=== PATIENT | female | born 1960 | race Caucasian/White ===

== ENCOUNTER 2017-10-01 18:05 | Inpatient (IN) | payer OTHER ==
[2017-10-01 19:03] LABS: Absolute Lymphocytes (CBC) 1.7 K/uL (0.7-4.9); Absolute Monocytes 0.6 K/uL (0.1-1.3); Absolute Neutrophil 6.8 K/uL (1.8-8.0); Basophils % 0.6 % (0-1.3); Eosinophils % 0.3 % (0-4.4); Hematocrit 33.8 % (36.0-45.0); Lymphocytes % 18.7 % (15.3-44.8); MCH 31.3 pg (27.0-35.0); MCV 92.7 fL (80-100); Monocytes % 6.6 % (3.3-12.3); RBC Red Blood Cell Count 3.65 M/uL (3.86-4.86)
[2017-10-01 19:09] LABS: Protime INR 1.68
[2017-10-01 19:17] LABS: Glucose Level 102 mg/dL (65-120)
[2017-10-01 19:18] LABS: Bicarbonate 33 mEq/L (21-31); Potassium 3.5 mEq/L (3.6-5.0); Sodium Level 134 mEq/L (135-145)
--- NOTE | 2017-10-01 19:21 | RAD REPORT ---
EXAM DESCRIPTION: RAD - Chest Single View - 10/01/2017 7:14 pm CLINICAL HISTORY: Chest pain. COMPARISON: None. FINDINGS: Portable technique limits examination quality. The lungs are emphysematous but grossly clear. The heart is normal in size. No displaced fractures.Se veral dilated small bowel loops are present in the upper abdomen, incompletely assessed. CT imaging i s pending at time of this dictation. IMPRESSION: No acute intrathoracic process suspected.
[2017-10-01] MEDS ORDERED: ONDANSETRON 4 MG/2 ML VIAL ONE (19:23)
[2017-10-01] MEDS ORDERED: NA CHLORIDE 0.9% 1,000 ML ONE ×2 (19:23→21:36)
[2017-10-01] MEDS ORDERED: PANTOPRAZOLE 40 MG INJ ONE (19:23)
[2017-10-01 19:24] LABS: ALT/SGPT 34 IU/L (10-60); AST/SGOT 32 IU/L (10-42); Albumin 3.1 g/dL (3.2-5.5); Alkaline Phosphatase 136 IU/L (42-121); BUN Blood Urea Nitrogen 47 mg/dL (6-20); Bilirubin Direct 0.3 mg/dL (0-0.2); Bilirubin Total 1.4 mg/dL (0.3-1.2); Glomerular Filtration Rate 39 mL/min (=/>90); Magnesium 1.1 mg/dL (1.8-2.5); Protein, Total 5.9 g/dL (6.0-8.3)
[2017-10-01 19:25] LABS: Lipase < 10 U/L (22-51)
[2017-10-01] MEDS ORDERED: NA CHLORIDE 0.9% 500 ML ONE (21:36)
--- NOTE | 2017-10-01 21:54 | RAD REPORT ---
EXAM DESCRIPTION: CT - Abdomen Pelvis Wo Contrast - 10/01/2017 9:33 pm CLINICAL HISTORY: Abdominal pain. Vomiting. COMPARISON: None TECHNIQUE: CT imaging of the abdomen and pelvis was performed without contrast. Solid organ and vasc ular assessment is limited due to lack of IV contrast. All CT scans are performed using dose optimization technique as appropriate and may include automated exposure control or mA/KV adjustment according to patient size. FINDINGS: The lower lung magana are clear. Diffuse severe fatty liver infiltration is noted.The spleen, pancreas, adrenal glands and kidneys are unremarkable for limited noncontrast assessment. Severe dilatation of the small bowel is identified. The colon appears largely decompressed. A left lo wer quadrant ostomy is noted. No free intraperitoneal air seen. No pneumatosis is identified. No port al venous gas is seen. The appendix is not visualized. Aortic atherosclerosis is present. The osseous structures are within normal limits. IMPRESSION: Very severe mechanical small bowel obstruction.
[2017-10-01] MEDS ORDERED: LORazepam 2 MG/ML VIAL ONE (22:50)
[2017-10-01] MEDS ORDERED: Levofloxacin500mg IV 500 MG/100 ML BAG IV ONE (22:51)
[2017-10-01] MEDS ORDERED: METRONIDAZOLE 500mg IVPB 500 MG/100 ML BAG IV ONE (22:51)
[2017-10-01] MEDS ORDERED: MAGNESIUM HYDROXIDE 8% 30 ML PO PRN (23:17)
[2017-10-01] MEDS ORDERED: ACETAMINOPHEN 500 MG TAB PO PRN (23:17)
[2017-10-01] MEDS ORDERED: ONDANSETRON 4 MG/2 ML VIAL IV PRN (23:17)
[2017-10-01] MEDS ORDERED: Magnesium Sulfate 2gm IVPB 2 G/50 ML BAG IV ONE (23:20)
[2017-10-01] MEDS ORDERED: LIDOCAINE VISCOUS 2% SOLN 15 ML UDC ONE (23:42)
[2017-10-01] MEDS ORDERED: METRONIDAZOLE 500mg IVPB 500 MG/100 ML BAG IV SCH (23:45)
--- NOTE | 2017-10-01 23:49 | ER ---
Nurse's Notes [facility] Name: Lyric Barnard Age: 56 yrs Sex: Female : 1960 Arrival Date: 10/01/2017 Time: 18:10 Bed 7 Private MD: Diagnosis: Small Bowel Obstruction Presentation: 10/01 18:14 Presenting complaint: Patient states: I have an ostomy and it is leaking, I am having la1 abd pain and vomiting as well. I have also lost 30 pounds since may. Transition of care: patient was not received from another setting of care. Onset of symptoms was October 01, 2017. Care prior to arrival: None. 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 - Social history:: Smoking status: Patient uses tobacco products, smokes one-half pack cigarettes per day. Screenin:26 Abuse screen: Denies threats or abuse. Nutritional screening: No deficits noted. jl7 Tuberculosis screening: No symptoms or risk factors identified. Fall Risk IV access (20 points). Total Gifford Fall Scale indicates No Risk (0-24 pts). Assessment: 18:26 General: Appears uncomfortable, slender, malnourished, Behavior is calm, cooperative. jl7 Pain: Complains of pain in right lower quadrant and left lower quadrant Pain does not radiate. Pain currently is 8 out of 10 on a pain scale. Pain began a week ago. Neuro: Level of Consciousness is awake, alert, obeys commands, Oriented to person, place, time, situation. Cardiovascular: Patient's skin is warm and dry. Respiratory: Airway is patent Respiratory effort is even, unlabored, Respiratory pattern is regular, symmetrical. GI: Colostomy site Ostomy appliance is intact. Bowel sounds present in right upper quadrant, left upper quadrant and right lower quadrant Abdomen is tender to palpation X 4 quads. Reports nausea, vomiting, since 1 week. : No signs and/or symptoms were reported regarding the genitourinary system. EENT: No signs and/or symptoms were reported regarding the EENT system. Derm: Skin is dry, Skin is dusky, Skin temperature is warm. Musculoskeletal: No signs and/or symptoms reported regarding the musculoskeletal system. 19:20 Reassessment: Patient appears in no apparent distress at this time. Patient and/or aa1 family updated on plan of care and expected duration. Pain level reassessed. Patient is alert, oriented x 3, equal unlabored respirations, skin warm/dry/pink. Awaiting test results. 19:41 General: Appears uncomfortable, slender, Behavior is calm, cooperative. Pain: Complains ea of pain in abdomen Pain does not radiate. Pain currently is 7 out of 10 on a pain scale. Neuro: Level of Consciousness is awake, alert, obeys commands, Oriented to person, place, time, situation. Cardiovascular: Patient's skin is warm and dry. Respiratory: Airway is patent Respiratory effort is even, unlabored, Respiratory pattern is regular, symmetrical. GI: Colostomy site Ostomy appliance is intact. Reports nausea, vomiting. : No signs and/or symptoms were reported regarding the genitourinary system. EENT: No signs and/or symptoms were reported regarding the EENT system. Derm: Skin is dry, Skin is pale, Skin temperature is warm. Musculoskeletal: No signs and/or symptoms reported regarding the musculoskeletal system. 20:25 Reassessment: Patient and/or family updated on plan of care and expected duration. Pain ea level reassessed. Pt alert and oriented x 3, respirations even and unlabored. Chest expansions even and symmetrical. Family at bedside. 21:54 Reassessment: Patient appears in no apparent distress at this time. Patient and/or aa1 family updated on plan of care and expected duration. Pain level reassessed. Patient is alert, oriented x 3, equal unlabored respirations, skin warm/dry/pink. Awaiting CT results. 22:30 Reassessment: Patient and/or family updated on plan of care and expected duration. Pain ea level reassessed. Patient is alert, oriented x 3, equal unlabored respirations, skin warm/dry/pink. 23:30 Reassessment: NG tube insertion attempt unsuccessful, pt unable to tolerate insertion, ea provider notified. 23:50 Reassessment: Patient and/or family updated on plan of care and expected duration. Pain ea level reassessed. Patient is alert, oriented x 3, equal unlabored respirations, skin warm/dry/pink. 10/02 00:45 Reassessment: Patient and/or family updated on plan of care and expected duration. Pain ea level reassessed. Patient is alert, oriented x 3, equal unlabored respirations, skin warm/dry/pink. 01:13 Reassessment: Patient and/or family updated on plan of care and expected duration. Pain ea level reassessed. Patient is alert, oriented x 3, equal unlabored respirations, skin warm/dry/pink. Report given to Fatoumata ELLIOTT on second floor. Vital Signs: 10/01 18:16 BP 95 / 82; Pulse 110; Resp 19; Pulse Ox 98% on R/A; Weight 45.36 kg; Height 5 ft. 6 la1 in. (167.64 cm); 18:26 BP 112 / 86; Pulse 93; Resp 14 S; Temp 98(O); Pulse Ox 98% on R/A; jl7 19:20 BP 110 / 82; Pulse 90; Resp 16; Pulse Ox 98% on R/A; aa1 20:18 BP 118 / 82; Pulse 87; Resp 18; Pulse Ox 98% on R/A; ea 20:41 BP 105 / 74; Pulse 90; Resp 28; Pulse Ox 98% on R/A; aa1 21:55 BP 96 / 71; Pulse 86; Resp 18; Pulse Ox 96% on R/A; aa1 22:30 BP 107 / 74; Pulse 87; Resp 18; Pulse Ox 97% on R/A; ea 23:00 BP 110 / 87; Pulse 93; Resp 16 S; Pulse Ox 97% on R/A; ea 10/02 00:45 BP 101 / 72; Pulse 83; Resp 18; Pulse Ox 99% on R/A; ea 01:22 BP 101 / 74; Pulse 78; Resp 18 S; Temp 97.8(O); Pulse Ox 99% on R/A; Pain 0/10; ea 10/01 18:16 Body Mass Index 16.14 (45.36 kg, 167.64 cm) la1 ED Course: 10/01 18:10 Patient arrived in ED. mr 18:15 Triage completed. la1 18:16 Arm band placed on left wrist. la1 18:18 Maylin Jarrett RN is Primary Nurse. jl7 18:26 Patient has correct armband on for positive identification. Placed in gown. Bed in low jl7 position. Call light in reach. Side rails up X 1. Pulse ox on. NIBP on. Warm blanket given. 18:26 Inserted saline lock: 20 gauge in right forearm, using aseptic technique. Blood jl7 collected. 18:28 Juan Sawyer PA is PHCP. cp 18:28 Donte Pillai MD is Attending Physician. cp 18:30 Initial lab(s) drawn, by wv, sent to lab. jl7 18:45 Inserted saline lock: 20 gauge in left forearm, using aseptic technique. jl7 19:09 Tahir Becerril MD is Attending Physician. cp 19:13 X-ray completed. Portable x-ray completed in exam room. Patient tolerated procedure la2 well. 19:14 XRAY Chest (1 view) In Process Unspecified. EDMS 19:14 Report given to EARL Deleon. jl7 21:33 CT Abd/Pelvis - Without Cont In Process Unspecified. EDMS 23:10 NGT: inserted 18 Fr. via left nare. verified placement of air over stomach, verified ea return of gastric contents, to intermittent suction. Returned gastric contents. Patient tolerated well. 23:47 Sonja Oneal MD is Hospitalizing Provider. cp 10/02 00:49 No provider procedures requiring assistance completed. Patient admitted, IV remains in ea place. 00:53 X-ray completed. Patient tolerated procedure well. la2 Administered Medications: Discontinued: NS 0.9% 1000 ml IV at 100 ml/hr continuous 10/01 19:05 Drug: NS 0.9% 500 ml Route: IV; Rate: bolus; Site: right forearm; jl7 20:08 Follow up: IV Status: Completed infusion aa1 19:06 Drug: ProTONIX 40 mg Route: IVP; Site: right forearm; jl7 20:08 Follow up: Response: No adverse reaction; Pain is decreased aa1 19:08 Drug: Zofran 4 mg Route: IVP; Site: right forearm; jl7 20:08 Follow up: Response: No adverse reaction; Nausea is decreased aa1 19:30 Drug: NS 0.9% 500 ml Route: IV; Rate: bolus; Site: right forearm; aa1 20:00 Follow up: IV Status: Completed infusion aa1 21:53 Drug: NS 0.9% 1000 ml Route: IV; Rate: 100 ml/hr; Site: right forearm; aa1 10/02 01:25 Follow up: Response: No adverse reaction ea 10/01 22:50 Drug: metroNIDAZOLE 500 mg Volume: 100 ml; Route: IVPB; Infused Over: 30 mins; Site: ea right antecubital; 10/02 00:35 Follow up: IV Status: Infusion continued upon admission ea 10/01 22:50 Drug: LevaQUIN 500 mg Volume: 100 ml; Route: IVPB; Infused Over: 60 mins; Site: right ea antecubital; 10/02 00:36 Follow up: IV Status: Infusion continued upon admission ea 00:34 CANCELLED (Physician Discretion): Ativan 0.5 mg IVP once ea 00:35 Drug: NS 0.9% 1000 ml Route: IV; Rate: 125 ml/hr; Site: right antecubital; ea 00:36 Follow up: IV Status: Infusion continued upon admission ea Intake: 10/01 20:10 IV: 1000ml (IV Fluid); Total: 1000ml. aa1 Outcome: 23:49 Decision to Hospitalize by Provider. aminata 10/02 00:00 Instructed on the need for admit. ea 01:21 Admitted to Med/surg accompanied by tech, via stretcher, room 215, on monitor, Report ea called to Receiving nurse 01:21 Condition: stable 01:34 Patient left the ED. ea Signatures: Dispatcher [employer] EDMS Adrienne Valdez RN RN [email or web address] Rika Francisco Lee RN RN tima1 Juan Sawyer PA PA Maylin Guillermo RN RN jl7 Evelin Mendez RN RN ea Ardoin, Leslie la2 Corrections: (The following items were deleted from the chart) 10/01 18:51 18:26 Initial lab(s) drawn, by me, sent to lab. chris perez
--- NOTE | 2017-10-01 23:49 | EDPHYS ---
Physician Documentation [facility] Name: Lyric Barnard Age: 56 yrs Sex: Female : 1960 Arrival Date: 10/01/2017 Time: 18:10 Bed 7 Private MD: ED Physician Tahir Becerril HPI: 10/01 18:45 This 56 yrs old Female presents to ER via Wheelchair with complaints of cp Abdominal Pain, Nausea/Vomiting/Diarrhea. 18:45 The patient presents with abdominal pain that is diffuse, abdominal distention that is cp diffuse. Onset: The symptoms/episode began/occurred 1 week(s) ago. Associated signs and symptoms: Pertinent positives: nausea and vomiting, diarrhea, Pertinent negatives: fever, headache, vomiting blood. The symptoms are described as constant. Severity of pain: in the emergency department the pain is unchanged. 18:45 Patient reports history of radiation treated cervical cancer that required ostomy cp [place] in [address] Moss in [place]. 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 - Social history:: Smoking status: Patient uses tobacco products, smokes one-half pack cigarettes per day. ROS: 19:00 Constitutional: Positive for poor PO intake, weight loss, Negative for fever. cp 19:00 Eyes: Negative for injury, pain, redness, and discharge. cp 19:00 ENT: Negative for drainage from ear(s), ear pain, sore throat, difficulty swallowing, difficulty handling secretions. 19:00 Cardiovascular: Negative for chest pain, edema, palpitations. 19:00 Respiratory: Negative for cough, shortness of breath, wheezing. 19:00 Abdomen/GI: Positive for abdominal pain, nausea, vomiting, diarrhea, abdominal distension, anorexia, Negative for hematemesis, black/tarry stool, rectal bleeding. 19:00 Back: Negative for pain at rest, pain with movement, radiated pain. 19:00 : Negative for urinary symptoms. 19:00 Skin: Negative for cellulitis, rash. 19:00 Neuro: Positive for general weakness, Negative for altered mental status. 19:00 All other systems are negative. Exam: 19:10 Constitutional: The patient appears in no acute distress, alert, awake, cp non-diaphoretic, non-toxic, well developed, frail, uncomfortable. 19:10 Head/Face: Normocephalic, atraumatic. cp 19:10 Eyes: Periorbital structures: appear normal, Pupils: equal, round, and reactive to light and accomodation, Extraocular movements: intact throughout, Conjunctiva: normal, no exudate, no injection, Sclera: no appreciated abnormality, Lids and lashes: appear normal, bilaterally. 19:10 ENT: External ear(s): are unremarkable, Ear canal(s): are normal, clear, TM's: bulging, is not appreciated, bilaterally, dullness, bilaterally, erythema, is not appreciated, bilaterally, Nose: is normal, Mouth: Lips: dry, Oral mucosa: dry, Posterior pharynx: Airway: no evidence of obstruction, patent, Uvula: midline, swelling, is not appreciated, erythema, is not appreciated, exudate, is not appreciated, Voice: is normal. 19:10 Neck: ROM/movement: is normal, is supple, without pain, no range of motions limitations, no meningismus, no nuchal rigidity. 19:10 Chest/axilla: Inspection: normal, Palpation: is normal, no crepitus, no tenderness. 19:10 Cardiovascular: Rate: tachycardic, Rhythm: regular, Pulses: Pulses are 2+ in right radial artery and left radial artery. Edema: is not appreciated, JVD: is not appreciated. 19:10 Respiratory: the patient does not display signs of respiratory distress, Respirations: normal, no use of accessory muscles, no retractions, no splinting, no tachypnea, labored breathing, is not present, Breath sounds: are clear throughout, no decreased breath sounds, no stridor, no wheezing. 19:10 Abdomen/GI: Inspection: distension, that is moderate, noted left lower abdomen ostomy, Bowel sounds: hyperactive, in all quadrants, Palpation: soft, in all quadrants, moderate abdominal tenderness, in all quadrants, rebound tenderness, is not appreciated, involuntary guarding, is elicited in all quadrants. 19:10 Back: pain, is absent, ROM is normal. 19:10 Skin: cellulitis, is not appreciated, no rash present. 19:10 Neuro: Orientation: to person, place \T\ time. Mentation: is normal, Cerebellar function: is grossly normal, Motor: moves all fours, general weakness w/o focal deficits, Sensation: no obvious gross deficits. Vital Signs: 18:16 BP 95 / 82; Pulse 110; Resp 19; Pulse Ox 98% on R/A; Weight 45.36 kg; Height 5 ft. 6 la1 in. (167.64 cm); 18:26 BP 112 / 86; Pulse 93; Resp 14 S; Temp 98(O); Pulse Ox 98% on R/A; jl7 19:20 BP 110 / 82; Pulse 90; Resp 16; Pulse Ox 98% on R/A; aa1 20:18 BP 118 / 82; Pulse 87; Resp 18; Pulse Ox 98% on R/A; ea 20:41 BP 105 / 74; Pulse 90; Resp 28; Pulse Ox 98% on R/A; aa1 21:55 BP 96 / 71; Pulse 86; Resp 18; Pulse Ox 96% on R/A; aa1 22:30 BP 107 / 74; Pulse 87; Resp 18; Pulse Ox 97% on R/A; ea 23:00 BP 110 / 87; Pulse 93; Resp 16 S; Pulse Ox 97% on R/A; ea 10/02 00:45 BP 101 / 72; Pulse 83; Resp 18; Pulse Ox 99% on R/A; ea 01:22 BP 101 / 74; Pulse 78; Resp 18 S; Temp 97.8(O); Pulse Ox 99% on R/A; Pain 0/10; ea 10/01 18:16 Body Mass Index 16.14 (45.36 kg, 167.64 cm) la1 MDM: 10/01 18:28 Patient medically screened. cp 19:00 Differential diagnosis: bowel obstruction, diverticulitis, gastritis, pancreatitis, cp Pyelonephritis, urinary tract infection, dehydration. 22:15 Data reviewed: vital signs, nurses notes, lab test result(s), EKG, radiologic studies, cp CT scan, plain films. 22:19 Physician consultation: Willard Corea MD was called at 22:15, was contacted at 22:15, regarding patient's condition, and will see patient in ED, shortly. 10/01 18:40 Order name: Basic Metabolic Panel; Complete Time: 19:44 cp 10/01 19:45 Interpretation: Normal except: CA 7.1; NA 134; K 3.5; CL 84; CO2 33; BUN 47; CRE 1.41; cp GFR 39. 10/01 18:40 Order name: CBC with Diff; Complete Time: 19:44 cp 10/01 19:44 Interpretation: Normal except: RBC 3.65; HGB 11.4; HCT 33.8; PLT 461; DEBORAH% 73.8. cp 10/01 18:40 Order name: LFT's; Complete Time: 19:44 cp 10/01 19:45 Interpretation: Normal except: ALK 136; BILIT 1.4; BILID 0.3; TP 5.9; ALB 3.1. cp 10/01 18:40 Order name: Magnesium; Complete Time: 19:44 cp 10/01 19:58 Interpretation: Abnormal: MG 1.1. cp 10/01 18:40 Order name: PT-INR; Complete Time: 19:44 cp 10/01 18:40 Order name: Ptt, Activated; Complete Time: 19:44 cp 10/01 18:40 Order name: Lipase; Complete Time: 19:44 cp 10/01 18:40 Order name: Phosphorus; Complete Time: 19:44 cp 10/01 19:58 Interpretation: Abnormal: PHOS 5.0. cp 10/01 23:20 Order name: CBC with Automated Diff EDMS 10/01 23:20 Order name: CBC with Automated Diff EDMS 10/01 23:20 Order name: Comprehensive Metabolic Panel EDMS 10/01 23:20 Order name: Comprehensive Metabolic Panel EDMS 10/01 23:20 Order name: Magnesium EDMS 10/01 23:20 Order name: Magnesium EDMS 10/01 18:40 Order name: XRAY Chest (1 view); Complete Time: 19:44 cp 10/01 18:40 Order name: EKG; Complete Time: 18:41 cp 10/01 19:59 Order name: CT Abd/Pelvis - Without Cont; Complete Time: 21:58 cp 10/01 23:20 Order name: Abdomen Acute Series EDMS 10/01 23:20 Order name: Phosphorus EDMS 10/01 23:20 Order name: Phosphorus EDMS 10/01 18:40 Order name: Cardiac monitoring; Complete Time: 18:57 cp 10/01 18:40 Order name: EKG - Nurse/Tech; Complete Time: 19:19 cp 10/01 18:40 Order name: IV Saline Lock; Complete Time: 18:57 cp 10/01 18:40 Order name: Labs collected and sent; Complete Time: 18:57 cp 10/01 18:40 Order name: O2 Per Protocol; Complete Time: 18:57 cp 10/01 18:40 Order name: O2 Sat Monitoring; Complete Time: 18:57 cp 10/01 18:40 Order name: IV; Complete Time: 19:02 cp 10/01 22:13 Order name: NG Tube; Complete Time: 00:43 cp 10/01 23:20 Order name: CONS Physician Consult EDMS 10/01 23:20 Order name: NPO EDMS Administered Medications: Discontinued: NS 0.9% 1000 ml IV at 100 ml/hr continuous 19:05 Drug: NS 0.9% 500 ml Route: IV; Rate: bolus; Site: right forearm; jl7 20:08 Follow up: IV Status: Completed infusion aa1 19:06 Drug: ProTONIX 40 mg Route: IVP; Site: right forearm; jl7 20:08 Follow up: Response: No adverse reaction; Pain is decreased aa1 19:08 Drug: Zofran 4 mg Route: IVP; Site: right forearm; jl7 20:08 Follow up: Response: No adverse reaction; Nausea is decreased aa1 19:30 Drug: NS 0.9% 500 ml Route: IV; Rate: bolus; Site: right forearm; aa1 20:00 Follow up: IV Status: Completed infusion aa1 21:53 Drug: NS 0.9% 1000 ml Route: IV; Rate: 100 ml/hr; Site: right forearm; aa1 10/02 01:25 Follow up: Response: No adverse reaction 10/01 22:50 Drug: metroNIDAZOLE 500 mg Volume: 100 ml; Route: IVPB; Infused Over: 30 mins; Site: ea right antecubital; 10/02 00:35 Follow up: IV Status: Infusion continued upon admission ea 10/01 22:50 Drug: LevaQUIN 500 mg Volume: 100 ml; Route: IVPB; Infused Over: 60 mins; Site: right ea antecubital; 10/02 00:36 Follow up: IV Status: Infusion continued upon admission ea 00:34 CANCELLED (Physician Discretion): Ativan 0.5 mg IVP once ea 00:35 Drug: NS 0.9% 1000 ml Route: IV; Rate: 125 ml/hr; Site: right antecubital; ea 00:36 Follow up: IV Status: Infusion continued upon admission ea Disposition: 03:03 Co-signature as Attending Physician, Tahir Becerril MD. pkl Disposition: 10/01/17 23:49 Hospitalization ordered by Sonja Oneal for Inpatient Admission. Preliminary diagnosis is Small Bowel Obstruction. - Bed requested for Telemetry/MedSurg (Inpatient). - Status is Inpatient Admission. ea - Condition is Stable. - Problem is new. - Symptoms have improved. UTI on Admission? No Signatures: Dispatcher [employer] EDAK Adrienne Valdez, RN RN aa1 Tahir Becerril MD MD pkl Attema, Lee RN RN la1 Juan Sawyer PA PA cp Garcia, Cindy, RN Maylin Palomino RN RN jl7 Evelin Mendez RN RN ea Corrections: (The following items were deleted from the chart) 10/01 19:14 18:40 Urine Test ordered. aminata perez 20:02 18:40 Urine Dipstick-Ancillary ordered. cp aa1 20:03 18:44 Abdomen Pelvis W Con+CT.RAD.BRZ ordered. EDAK EDMS 10/02 00:34 10/01 22:29 Ativan 0.5 mg IVP once ordered. ea 10/02 00:34 00:34 Ativan 0.5 mg IVP once ordered. ea ea
[2017-10-02] MEDS: Ringers Lactate 1,000 ML IV SCH ×2 (02:58→08:37)
[2017-10-02 05:21] LABS: Absolute Lymphocytes (CBC) 1.6 K/uL (0.7-4.9); Absolute Monocytes 0.6 K/uL (0.1-1.3); Absolute Neutrophil 5.9 K/uL (1.8-8.0); Basophils % 0.4 % (0-1.3); Eosinophils % 0.6 % (0-4.4); Hematocrit 28.2 % (36.0-45.0); Lymphocytes % 19.4 % (15.3-44.8); MCH 30.9 pg (27.0-35.0); MCV 93.2 fL (80-100); MPV 8.3 fL (7.6-11.3); Monocytes % 7.1 % (3.3-12.3); RBC Red Blood Cell Count 3.03 M/uL (3.86-4.86)
[2017-10-02 05:36] LABS: Albumin 2.1 g/dL (3.2-5.5); Bilirubin Total 1.4 mg/dL (0.3-1.2); Magnesium 1.7 mg/dL (1.8-2.5); Phosphorus 4.3 mg/dL (2.5-4.3); Potassium 3.2 mEq/L (3.6-5.0); Protein, Total 4.2 g/dL (6.0-8.3)
[2017-10-02] MEDS ORDERED: MAGNESIUM SULFATE 1 gm IVPB 1 GM/100 ML BAG IV ONE (07:00)
--- NOTE | 2017-10-02 07:34 | P.HP ---
Certification for Inpatient Patient admitted to: Inpatient With expected LOS: >2 Midnights Patient will require the following post-hospital care: None Practitioner: I am a practitioner with admitting privileges, knowledge of patient current condition, hospital course, and medical plan of care. Services: Services provided to patient in accordance with Admission requirements found in Title 42 Section 412.3 of the Code of Federal Regulations Patient History Date of Service: 10/02/17 Reason for admission: Small-bowel obstruction History of Present Illness: Patient is a 56-year-old female with a history of cervical cancer status post radiation. After she received radiation she had a injury to her small intestines an as well as her colon. She required a small-bowel resections as well as a partial colectomy. Patient has been doing well and takes care of her own colostomy. However, yesterday she started having abdominal distention and pain. She came into the emergency room ran workup revealed severe small-bowel obstruction. Patient had NG tube placed in surgical evaluation. Patient was admitted to the hospital for further evaluation. Allergies tramadol Adverse Reaction (Verified 10/02/17 02:17) Rash - Past Medical/Surgical History Has patient received pneumonia vaccine in the past: No Diabetic: No -: cervical ca status post radiation -: blood clot left leg -: Colostomy placement to the left lower abdomen -: Small-bowel resection -: Partial colon resections - Family History Father Family History: Reviewed- Non-Contributory - Social History Smoking Status: Current every day smoker Alcohol use: No CD- Drugs: No Caffeine use: Yes Place of Residence: Home Review of Systems 10-point ROS is otherwise unremarkable Physical Examination - Vital Signs Temperature: 97.8 F Blood Pressure: 89/62 Pulse: 74 Respirations: 18 Pulse Ox (%): 95 - Physical Exam General: Alert, In no apparent distress, Oriented x3 HEENT: Atraumatic, PERRLA, Mucous membr. moist/pink, EOMI, Sclerae nonicteric Neck: Supple, 2+ carotid pulse no bruit, No LAD, Without JVD or thyroid abnormality Respiratory: Clear to auscultation bilaterally, Normal air movement Cardiovascular: Regular rate/rhythm, Normal S1 S2, No murmurs Gastrointestinal: Normal bowel sounds, Soft and benign, No tenderness, Other ( Colostomy in place), Distended Musculoskeletal: No clubbing, No swelling, No tenderness Integumentary: No rashes Neurological: Normal gait, Normal speech, Normal strength at 5/5 x4 extr, Normal tone, Sensation intact, Cranial nerves 3-12 intact, Normal affect Lymphatics: No axilla or inguinal lymphadenopathy - Studies Laboratory Data (last 24 hrs) 10/01/17 18:50: PT 19.9 H, INR 1.68, APTT 29.1 10/01/17 18:50: WBC 9.2, Hgb 11.4 L, Hct 33.8 L, Plt Count 461 H 10/01/17 18:50: Sodium 134 L, Potassium 3.5 L, BUN 47 H, Creatinine 1.41 H, Glucose 102, Phosphorus 5.0 H, Magnesium 1.1 L*, Total Bilirubin 1.4 H, AST 32, ALT 34, Alkaline Phosphatase 136 H, Lipase < 10 L Assessment & Plan - Problems (Diagnosis) (1) Small bowel obstruction due to adhesions Current Visit: Yes Status: Acute (2) History of cervical cancer Current Visit: Yes Status: Acute (3) H/O partial resection of colon Current Visit: Yes Status: Acute (4) S/P small bowel resection Current Visit: Yes Status: Acute - Plan Plan: 1. NG tube placement 2. Pain control 3. Colostomy care 4. IV hydration 5. Surgical consultation 6. IV antibiotics 7. NPO 8. GI and DVT prophylaxis Patient actually has air in her colostomy bag. She states she is feeling air pass into her colostomy bag. She may have a partial small-bowel obstruction and will monitor this closely. - Advance Directives Does patient have a Living Will: Yes Does patient have a Durable POA for Healthcare: Yes - Code Status/Comfort Care Code Status Assessed: Yes Code Status: Full Code Critical Care: No Time Spent Managing PTS Care (In Minutes): 50
[2017-10-02] MEDS ORDERED: INFLUENZA VACCINE (for 3y+) 0.5 ML DOSE IMVAC ONE (08:00)
[2017-10-02] MEDS ORDERED: KCL 20 MEQ/100 mL IVPB 20 MEQ/100 ML BAG IV ONE (08:00)
[2017-10-02] MEDS: KCL 20 MEQ/100 mL IVPB 20 MEQ/100 ML BAG IV SCH ×2 (08:36→12:00)
[2017-10-02] MEDS: ENOXAPARIN 30 MG/0.3 ML SQ SCH (08:37)
--- NOTE | 2017-10-02 10:18 | P.PN ---
Subjective Date of Service: 10/02/17 Chief Complaint: Small-bowel obstruction Subjective: Improving (Patient passed more gas, is now pain free, but still has some mild distention, mild tenderness) Physical Examination - Vital Signs Temperature: 96.0 F Blood Pressure: 89/55 Pulse: 71 Respirations: 16 Pulse Ox (%): 91 - Physical Exam General: Alert, In no apparent distress, Cooperative HEENT: Mucous membr. moist/pink Respiratory: Clear to auscultation bilaterally Gastrointestinal: Other (soft, much less distended from last exam, minimal tenderness also much improved from prior exam. ostomy gas and minimal stool in bag.) - Studies Laboratory Data (last 24 hrs) 10/01/17 18:50: PT 19.9 H, INR 1.68, APTT 29.1 10/01/17 18:50: WBC 9.2, Hgb 11.4 L, Hct 33.8 L, Plt Count 461 H 10/01/17 18:50: Sodium 134 L, Potassium 3.5 L, BUN 47 H, Creatinine 1.41 H, Glucose 102, Phosphorus 5.0 H, Magnesium 1.1 L*, Total Bilirubin 1.4 H, AST 32, ALT 34, Alkaline Phosphatase 136 H, Lipase < 10 L Assessment And Plan - Current Problems (Diagnosis) (1) Small bowel obstruction due to adhesions Current Visit: Yes Status: Acute Plan: - Keep NG tube today - ambulate with assist - electrolyte correction - serial exams - incentive spirometry - medical management
[2017-10-02] MEDS: NA CHLORIDE 0.9% 1,000 ML IV SCH ×2 (10:25→18:27)
[2017-10-02] MEDS ORDERED: CALCIUM GLUC 10% INJ 9.3 MEQ in NA CHLORIDE 0.9% 100 ML IV ONE (11:00)
--- NOTE | 2017-10-02 11:04 | RAD REPORT ---
EXAM DESCRIPTION: RAD - Abdomen Acute Series - 10/02/2017 1:00 am CLINICAL HISTORY: Abdomen pain FINDINGS: Marked dilatation of multiple small bowel loops is unchanged from the CT 2 hours earlier. The most di lated loop measures 8.5 centimeters. The air within the colon is diminished. Free air is not seen beneath the diaphragm. The lungs appear clear of acute infiltrate. The tip of a gastric tube lies 5 centimeters into the proximal stomach IMPRESSION: No change in a severe mechanical small bowel obstruction
--- NOTE | 2017-10-02 12:45 | EKG ---
Test Date: 2017-10-01 Test Time: 19:14:31 Telephone Lines Repairer: LOLI MEASUREMENT RESULTS: Intervals: Rate: 89 CT: 100 QRSD: 96 QT: 398 QTc: 484 [place]: P: 52 CT: 100 QRS: 74 T: 71 INTERPRETIVE STATEMENTS: Sinus rhythm with short CT Nonspecific ST and T wave abnormality Abnormal ECG No previous ECG available for comparison Electronically Signed On 10-02-17 12:44:13 CDT by Antonio Vences
[2017-10-03] MEDS: NA CHLORIDE 0.9% 1,000 ML IV SCH (04:53)
[2017-10-03 05:26] LABS: Magnesium 1.7 mg/dL (1.8-2.5); Potassium 3.4 mEq/L (3.6-5.0)
[2017-10-03] MEDS ORDERED: Magnesium Sulfate 2gm IVPB 2 G/50 ML BAG IV ONE (05:53)
[2017-10-03] MEDS ORDERED: D5 0.9 NS 1,000 ML IV SCH (06:00)
[2017-10-03] MEDS ORDERED: NA CHLORIDE 0.9% 250 ML ONE (06:41)
[2017-10-03] MEDS: KCL 20 MEQ/100 mL IVPB 20 MEQ/100 ML BAG IV SCH ×2 (07:04→10:15)
--- NOTE | 2017-10-03 08:56 | P.PN ---
Subjective Date of Service: 10/03/17 Chief Complaint: Small-bowel obstruction Subjective: Improving (Pain resolved, distention resolved, good bowel function from ostomy) Physical Examination - Vital Signs Temperature: 97.8 F Blood Pressure: 134/65 Pulse: 96 Respirations: 18 Pulse Ox (%): 100 - Physical Exam General: Alert, In no apparent distress, Cooperative Gastrointestinal: Soft and benign, Non-distended, No tenderness, No rebound, No guarding Assessment And Plan - Current Problems (Diagnosis) (1) Small bowel obstruction due to adhesions Current Visit: Yes Status: Acute Plan: - DC NG tube today - ambulate with assist - electrolyte correction - serial exams - incentive spirometry - medical management
[2017-10-03] MEDS: ENOXAPARIN 30 MG/0.3 ML SQ SCH (10:15)
[2017-10-03 10:28] LABS: Urine Appearance CLOUDY; Urine Bilirubin NEGATIVE (NEG); Urine Blood NEGATIVE (NEG); Urine Color YELLOW; Urine Glucose NEGATIVE (NEG); Urine Protein TRACE (NEG)
[2017-10-03 10:30] LABS: Urine Microscopic Reflex ORDER UMIC
--- NOTE | 2017-10-03 10:33 | CON ---
Date of Consultation: 10/01/2017 Brief Hpi: The patient is a 56-year-old female with a history of cervical cancer in 2005, status post conization and pelvic radiation. She received radiation at that time and had injury to t he small intestines and part of her colon. She subsequently 1 year after her radiation developed a s mall-bowel obstruction/intestinal obstruction, which required emergent surgery at that time. She sta henrry she had a large portion of her small intestine taken and had a permanent colostomy placed in the left lower quadrant. She still has her rectum by her report. She comes in now with abdominal pain b eginning in May, which has been getting slowly and progressively worse. She has also lost 30 po unds since May due to decreased appetite and increased nausea. She states that over the past 2 weeks her abdominal pain got significantly worse; however, she did not want to come see a physician a nd she simply got to the point where she could no longer tolerate p.o. and her abdominal exam was wor sening. She states her pain got significantly worse. She became more distended and had decreased ou tput in her ostomy over the past week, especially. She states that her physician on the last operati on told her that she has a very small amount of small intestine left. She did see her oncologist las t who did a pelvic exam and said there was no evidence of recurrent cancer in her cervical regio n, but she is due to come back for "whole body imaging" on Tuesday of next week to continue the wor kup to ensure she does not have recurrence. She states that in the ER, she feels somewhat better. S he has noticed some increased function in her ostomy appliance with increasing gas since being admitt ed to the ER, but she continues to have nausea and vomiting in the ER. The patient also admits to in creased output stool-like material from her rectum as of last week. Allergies: TRAMADOL. Past Medical History: Significant for cervical cancer status post conization and radiation. She has had a right lower extremity DVT. She is unsure why was placed on blood thinners for this. Past Surgical History: Includes a small bowel resection, partial colon resection, conization and col ostomy placement at the same time of her small-bowel resection in the left lower quadrant. Past surg ical history of C-sections x2. Family History: Noncontributory. Social History: Smoking, she smokes currently a pack a day approximately. She denies alcohol or rec reational drug use. She takes blood thinner at home and cannot recall the name, but thinks that it m ay be Eliquis. Physical Examination: Vital Signs: At the time of my examination, her BMI is 16. Her blood pressure 110/87, pulse is 93, respiratory rate 16, temperature 98.0. General: She appears thin and frail, in minor distress. Psychiatric: She is appropriate and conversive. HEENT: She has some temporal wasting, but otherwise her oropharynx is clear. Neck, supple. No JVD. Eyes, anicteric sclerae. Chest: Normal expansion and excursion. Cardiovascular: Regular rate and rhythm. Pulmonary: Clear to auscultation bilaterally. Abdomen: Soft, but significantly distended and tympanic. She has some gas coming through her ostomy appliance throughout the time of my examination. She has moderate tenderness globally over her abdo men, but there is no focal peritonitis and no significant peritoneal signs. She has minimal guarding voluntarily and minimal rebound tenderness. She has well-healed surgical scars evident. Extremities: She does not have any clubbing, swelling, or edema. Also focused exam of the right low er extremity shows no edematous change consistent with recurrent DVT. However, she states that the s welling did go away after some time being on blood thinners. Skin: Warm and dry otherwise. Laboratory Data: Reveals a white blood cell count 9.2, hemoglobin 11.4, hematocrit 33.8, platelet co unt 461. Her neutrophils 73%. Her PT 19.9, INR 1.68, PTT is 29.1. Her sodium 134, potassium 3.5, c hloride 84, carbon dioxide 33, BUN 47, creatinine 1.4. Her glucose is 102. Her calcium 7.1, phospho janelle 5.0. Her magnesium 1.1, total bilirubin 1.4, direct component 0.3, AST 32, ALT 34, alkaline phos phatase 136. Her lipase is less than 10. She had a CT scan performed of the abdomen and pelvis and chest x-ray. The x-ray was officially read as no acute intrathoracic process suspected. Her CT scan was officially read as severe dilatation of the small bowel identified. The colon appears largely d ecompressed. The left lower quadrant ostomy is noted. No free intraperitoneal air seen. No pneumat osis identified. No portal venous gas is seen. The appendix is not visualized. Aortic sclerosis pr esent. The osseous structures are within normal limits. The official impression is very severe mech anical small bowel obstruction. Assessment And Plan: This is a 56-year-old female who comes in with significant small bowel obstruct ion. 1.IV fluid hydration. 2.N.p.o. status. 3.Serial abdominal exams. 4.NG tube decompression. 5.I have explained the risks, benefits, and alternatives of the above stated nonoperative plan and t hat she might require surgery depending on her progression over the next few hours to days. She agre es to proceed as indicated. 6.The patient will need workup including endoscopy of the rectum to see if the patient has a possibl e fistulous connection between her intestinal tract and her rectum. 7.The patient will also require further oncologic workup to ensure she does not have any evidence of recurrence or metastatic disease. 8.The patient will also require nutritional optimization prior to discharge. She has significant we ight loss. We will feed judiciously and watch for signs of refeeding syndrome as she apparently has been having decreased n.p.o. for a long time. Thank you for this interesting consult. BRI/STEPHANIE Voice ID: [id number] Report ID: [id number]
[2017-10-03 10:38] LABS: Urine Bacteria 20-50 /HPF (<20); Urine RBC <5 /HPF (NONE SEEN)
[2017-10-03 10:39] LABS: Urine Culture Reflex Order REFLEXED
--- NOTE | 2017-10-03 13:48 | P.PN ---
Subjective Date of Service: 10/03/17 Primary Care Provider: Dr. Caldwell([place]) Chief Complaint: Small-bowel obstruction Subjective: Improving (Patient has passed stool. No abdominal pain noted.) Physical Examination - Vital Signs Temperature: 97.8 F Blood Pressure: 134/65 Pulse: 96 Respirations: 18 Pulse Ox (%): 100 - Physical Exam General: Alert, In no apparent distress, Oriented x3, Cooperative HEENT: Atraumatic, Mucous membr. moist/pink Neck: Supple, No Thyromegaly Respiratory: Clear to auscultation bilaterally, Normal air movement Cardiovascular: Normal pulses, Regular rate/rhythm Gastrointestinal: Normal bowel sounds, Soft and benign, Non-distended, No tenderness, No masses, No rebound, No guarding Musculoskeletal: No tenderness, No warmth Integumentary: No erythema, No warmth, No cyanosis Neurological: Normal speech, Normal strength at 5/5 x4 extr, Normal tone, Normal affect - Studies Medications List Reviewed: Yes Assessment & Plan - Problems (Diagnosis) (1) Hypokalemia Current Visit: Yes Status: Acute Plan: Will continue monitor and replace appropriately. Replacement protocol in place. (2) Hyponatremia Current Visit: Yes Status: Acute Plan: Will continue with IV fluids. Will advance diet as tolerated. (3) Anemia Current Visit: Yes Status: Acute Plan: Patient with anemia. Likely from iron deficiency. Will check iron and B12 studies. Qualifiers: Anemia type: unspecified type Qualified Code(s): D64.9 - Anemia, unspecified (4) Dehydration Current Visit: Yes Status: Acute Plan: Will continue with IV fluids. Will advance diet as tolerated. (5) Small bowel obstruction due to adhesions Onset Date: 10/03/17 Current Visit: Yes Status: Acute Plan: This has improved. She is passing stool. She is without any nausea or vomiting. Surgery has advanced her diet. NG tube removed. Will ambulate patient. Anticipate discharge soon. (6) History of DVT (deep vein thrombosis) Current Visit: Yes Status: Chronic Plan: Patient with history of DVT. On chronic anti coagulation therapy. Will restart medication. (7) Chronic anticoagulation Current Visit: Yes Status: Chronic Plan: Will restart her home medication. Patient takes Xarelto. (8) Acute renal failure Current Visit: Yes Status: Acute Plan: Continue with IV fluid hydration. This has improved. Qualifiers: Acute renal failure type: unspecified Qualified Code(s): N17.9 - Acute kidney failure, unspecified Discharge Plan: Home Plan to discharge in: 24 Hours Time Spent Managing Pts Care (In Minutes): 55
[2017-10-03] MEDS: D5 0.9 NS 1,000 ML IV SCH ×2 (14:00→23:43)
[2017-10-03] MEDS ORDERED: Levofloxacin 250mg IV 250 MG/50 ML BAG IV SCH ×2 (21:00)
[2017-10-03 21:32] LABS: Potassium 3.4 mEq/L (3.6-5.0)
[2017-10-03] MEDS: CODEINE 30MG/APAP 300MG TAB PO PRN (22:12)
[2017-10-03] MEDS: MIRTAZAPINE 15 MG TAB PO PRN (22:12)
[2017-10-04] MEDS ORDERED: POTASSIUM 25 MEQ EFFERV TAB PO ONE ×2 (00:02→06:27)
[2017-10-04 05:34] LABS: Absolute Lymphocytes (CBC) 1.6 K/uL (0.7-4.9); Absolute Monocytes 0.6 K/uL (0.1-1.3); Absolute Neutrophil 6.1 K/uL (1.8-8.0); Basophils % 0.7 % (0-1.3); Eosinophils % 0.4 % (0-4.4); Hematocrit 31.9 % (36.0-45.0); Lymphocytes % 19.6 % (15.3-44.8); MCH 30.8 pg (27.0-35.0); MPV 7.5 fL (7.6-11.3); Monocytes % 6.7 % (3.3-12.3); RBC Red Blood Cell Count 3.39 M/uL (3.86-4.86)
[2017-10-04] MEDS: PANTOPRAZOLE 40MG TABLET PO SCH (06:07)
[2017-10-04 06:12] LABS: BUN Blood Urea Nitrogen 16 mg/dL (6-20); Bicarbonate 23 mEq/L (21-31); Ferritin 303.4 ng/ml (11.0-306.8); Glomerular Filtration Rate 61 mL/min (=/>90); Glucose Level 154 mg/dL (65-120); Magnesium 1.9 mg/dL (1.8-2.5); Potassium 3.9 mEq/L (3.6-5.0); Sodium Level 135 mEq/L (135-145)
[2017-10-04 06:16] LABS: Transferrin < 70 mg/dL (192-382)
[2017-10-04] MEDS ORDERED: KCL 20 MEQ/100 mL IVPB 20 MEQ/100 ML BAG IV SCH (07:00)
[2017-10-04] MEDS ORDERED: RIVAROXABAN 15 MG TABLET PO SCH (09:00)
[2017-10-04] MEDS ORDERED: levoFLOXacin 250 MG TAB PO SCH (09:00)
--- NOTE | 2017-10-04 09:32 | RAD REPORT ---
EXAM DESCRIPTION: RAD - Abdomen 1 View (KUB) - 10/04/2017 8:51 am CLINICAL HISTORY: Abdomen pain. FINDINGS: Moderate dilatation of small bowel loops is present. The caliber has diminished since a Ma rch 30. Air within the colon is diminished. There has been some improvement in the mechanical small bowel obstruction
[2017-10-04] MEDS: CYANOCOBALAMIN 1,000 MCG TAB PO SCH (09:49)
[2017-10-04] MEDS: CODEINE 30MG/APAP 300MG TAB PO PRN (09:50)
[2017-10-04] MEDS: VITAMIN D 1000 UNIT TAB PO SCH (09:50)
[2017-10-04] MEDS: D5 0.9 NS 1,000 ML IV SCH ×3 (10:00→23:17)
[2017-10-04] MEDS ORDERED: BENZOCAINE SPRAY 57 GM BTL TOP ONE (10:37)
[2017-10-04] MEDS ORDERED: LIDOCAINE VISCOUS 2% SOLN 15 ML UDC PO ONE (10:49)
--- NOTE | 2017-10-04 11:45 | RAD REPORT ---
EXAM DESCRIPTION: RAD - Abdomen Single View - 10/04/2017 11:36 am CLINICAL HISTORY: NG tube placement COMPARISON: KUB same date FINDINGS: Dilated or prominent bowel pattern is again noted. No slip box changer this short interval. New radiopaque tubing is seen in the midline lower chest. Tip is at the GE junction. Tubing does not ext end into the lumen of the stomach. No free air or pneumatosis seen. IMPRESSION: NG tube tip is near the GE junction not yet extending into the lumen of the stomach.
--- NOTE | 2017-10-04 13:22 | RAD REPORT ---
EXAM DESCRIPTION: RAD - Chest Single View - 10/04/2017 1:14 pm CLINICAL HISTORY: NG tube placed COMPARISON: October 04 TECHNIQUE: AP portable chest image was obtained 1301 hours . FINDINGS: NG tube has been advanced since prior imaging. The tip is in the proximal body of the stom ach with the side hole of the catheter within the stomach near the GE junction. Stomach does appear t o be decompressed. Dilated small bowel pattern has not changed. No new free air or pneumatosis pattern. IMPRESSION: NG tube is been advanced and is now in good position in the proximal stomach.
--- NOTE | 2017-10-04 16:18 | P.PN ---
Subjective Date of Service: 10/04/17 Primary Care Provider: Dr. Caldwell([place]) Chief Complaint: Small-bowel obstruction Subjective: Other (Patient with increased nausea this morning. She has not been able to tolerate her diet since last night. Abdominal pain noted.) Physical Examination - Vital Signs Temperature: 98.8 F Blood Pressure: 137/94 Pulse: 92 Respirations: 16 Pulse Ox (%): 94 - Physical Exam General: Alert, In no apparent distress, Oriented x3, Cooperative HEENT: Atraumatic Neck: Supple Respiratory: Clear to auscultation bilaterally, Normal air movement Cardiovascular: Normal pulses, Regular rate/rhythm Gastrointestinal: Hypoactive (Throughout), Other (Colostomy bag shows no air.), Tenderness (Tenderness to the abdomen noted.) Musculoskeletal: No erythema, No tenderness, No warmth Integumentary: No erythema, No warmth, No cyanosis Neurological: Normal speech, Normal strength at 5/5 x4 extr, Normal tone - Studies Medications List Reviewed: Yes Assessment & Plan - Problems (Diagnosis) (1) Hypokalemia Current Visit: Yes Status: Acute Plan: Will continue monitor and replace appropriately. Replacement protocol in place. (2) Hyponatremia Current Visit: Yes Status: Acute Plan: Will continue with IV fluids. Will hold diet at this time. (3) Anemia Current Visit: Yes Status: Acute Plan: Patient with anemia. Will monitor closely. Qualifiers: Anemia type: unspecified type Qualified Code(s): D64.9 - Anemia, unspecified (4) Dehydration Current Visit: Yes Status: Acute Plan: Will continue with IV fluids. Will hold diet at this time due to abdominal pain. (5) Small bowel obstruction due to adhesions Onset Date: 10/03/17 Current Visit: Yes Status: Acute Plan: Will hold diet at this time due to nausea and abdominal pain. Will place NG tube due to increased nausea. X-ray shows mild improvement. Will discuss further with surgery. (6) History of DVT (deep vein thrombosis) Current Visit: Yes Status: Chronic Plan: Patient with history of DVT. On chronic anti coagulation therapy. (7) Chronic anticoagulation Current Visit: Yes Status: Chronic Plan: Will continue with her medication (8) Acute renal failure Current Visit: Yes Status: Acute Plan: Continue with IV fluid hydration. This has improved. Will monitor closely. Qualifiers: Acute renal failure type: unspecified Qualified Code(s): N17.9 - Acute kidney failure, unspecified Discharge Plan: Home Plan to discharge in: 48 Hours Time Spent Managing Pts Care (In Minutes): 55
[2017-10-04] MEDS: MIRTAZAPINE 15 MG TAB PO PRN (23:33)
[2017-10-05 05:56] LABS: Absolute Lymphocytes (CBC) 1.4 K/uL (0.7-4.9); Absolute Monocytes 0.4 K/uL (0.1-1.3); Absolute Neutrophil 3.2 K/uL (1.8-8.0); Basophils % 0.6 % (0-1.3); Eosinophils % 0.4 % (0-4.4); Hematocrit 23.7 % (36.0-45.0); MCH 31.1 pg (27.0-35.0); MCV 93.6 fL (80-100); MPV 7.4 fL (7.6-11.3); Monocytes % 7.2 % (3.3-12.3); RBC Red Blood Cell Count 2.53 M/uL (3.86-4.86)
[2017-10-05] MEDS: PANTOPRAZOLE 40MG TABLET PO SCH (06:20)
[2017-10-05] MEDS ORDERED: KCL 20 MEQ/100 mL IVPB 20 MEQ/100 ML BAG IV SCH (07:00)
[2017-10-05 08:07] LABS: Hematocrit 24.6 % (36.0-45.0)
--- NOTE | 2017-10-05 08:21 | RAD REPORT ---
EXAM DESCRIPTION: RAD - Chest Single View - 10/05/2017 1:13 am CLINICAL HISTORY: PICC line placement. COMPARISON: None. FINDINGS: Portable chest was obtained following placement of a right upper extremity PICC line. The catheter tip is in the SVC. Enteric tube descends into the stomach.
[2017-10-05] MEDS ORDERED: SODIUM CHLORIDE 0.9% 10ML INJ IV PRN (08:34)
[2017-10-05] MEDS ORDERED: D50W 25 GM/50 ML SYRINGE IV PRN (08:48)
[2017-10-05] MEDS ORDERED: GLUCAGON 1 MG/VIAL IM PRN (08:48)
[2017-10-05] MEDS ORDERED: DEXTROSE 10%-WATER 500 ML IV SCH (09:00)
[2017-10-05] MEDS: CYANOCOBALAMIN 1,000 MCG TAB PO SCH (09:00)
[2017-10-05] MEDS: PANTOPRAZOLE 40 MG INJ IVP SCH (09:00)
[2017-10-05] MEDS: VITAMIN D 1000 UNIT TAB PO SCH (09:00)
[2017-10-05] MEDS: Levofloxacin500mg IV 500 MG/100 ML BAG IV SCH (09:17)
[2017-10-05] MEDS: D5 0.9 NS 1,000 ML IV SCH (09:18)
[2017-10-05] MEDS: AA 5%/D20W/ELECTROLYTES-TPN 2,000 ML, Lipids 20% 250 ML with MULTIVITAMINS INJ 10 ML IV SCH ×3 (09:20)
--- NOTE | 2017-10-05 09:43 | P.PN ---
Subjective Date of Service: 10/05/17 Primary Care Provider: Dr. Caldwell([place]) Chief Complaint: Small-bowel obstruction Subjective: Other (Patient doing better than yesterday. Patient without any nausea or vomiting. NG tube in place. PICC line placed yesterday. Patient without abdominal pain.) Physical Examination - Vital Signs Temperature: 96.8 F Blood Pressure: 91/57 Pulse: 72 Respirations: 18 Pulse Ox (%): 93 - Physical Exam General: Alert, In no apparent distress, Oriented x3, Cooperative HEENT: Atraumatic Neck: Supple Respiratory: Clear to auscultation bilaterally, Normal air movement Cardiovascular: Normal pulses, Regular rate/rhythm Gastrointestinal: Normal bowel sounds, Soft and benign, Non-distended, No tenderness, No masses, Other (Colostomy in place.) Musculoskeletal: No tenderness, No warmth Integumentary: No erythema, No warmth, No cyanosis Neurological: Normal speech, Normal strength at 5/5 x4 extr, Normal tone, Normal affect Lymphatics: No axilla or inguinal lymphadenopathy - Studies Medications List Reviewed: Yes Assessment & Plan - Problems (Diagnosis) (1) Hypokalemia Current Visit: Yes Status: Acute Plan: Will continue monitor and replace appropriately. Replacement protocol in place. (2) Hyponatremia Current Visit: Yes Status: Acute Plan: Will continue with IV fluids. PICC line in place. Patient to get TPN. Overall this has improved. (3) Anemia Current Visit: Yes Status: Acute Plan: Patient with anemia. Hemoglobin has improved. This is likely dilutional. Will monitor closely. Qualifiers: Anemia type: unspecified type Qualified Code(s): D64.9 - Anemia, unspecified (4) Dehydration Current Visit: Yes Status: Acute Plan: Will continue with IV fluids. Patient will receive TPN. Will need to make adjustments to IV fluids once started. Will discuss case further with surgery. (5) Small bowel obstruction due to adhesions Onset Date: 10/03/17 Current Visit: Yes Status: Acute Plan: NG tube replaced yesterday. Patient to start TPN. Overall improved. No abdominal pain noted. No nausea vomiting noted. Hemoglobin stable. Will continue with IV antibiotic therapy. Medications adjusted to IV. Will discuss case further with surgery. Will ambulate with physical therapy. (6) History of DVT (deep vein thrombosis) Current Visit: Yes Status: Chronic Plan: Patient with history of DVT. Patient reports history of DVT to the lower extremity in July. She has been on medication since that time. Will hold Xarelto since the patient is NPO. Will use DVT prophylaxis at this time. (7) Chronic anticoagulation Current Visit: Yes Status: Chronic Plan: Will continue with DVT prophylaxis (8) Acute renal failure Current Visit: Yes Status: Acute Plan: Continue with IV fluid hydration. This has improved. Will monitor closely. Qualifiers: Acute renal failure type: unspecified Qualified Code(s): N17.9 - Acute kidney failure, unspecified Discharge Plan: Home Plan to discharge in: 48 Hours Time Spent Managing Pts Care (In Minutes): 55
[2017-10-05] MEDS ORDERED: D5 0.9 NS 1,000 ML IV SCH (10:00)
--- NOTE | 2017-10-05 10:02 | P.PN ---
Subjective Date of Service: 10/05/17 Primary Care Provider: Dr. Caldwell([place]) Chief Complaint: Small-bowel obstruction Subjective: Improving (Pain resolved, distention resolved, ostomy function has returned) Physical Examination - Vital Signs Temperature: 96.8 F Blood Pressure: 91/57 Pulse: 72 Respirations: 18 Pulse Ox (%): 93 - Physical Exam General: Alert, In no apparent distress, Cooperative Gastrointestinal: Soft and benign, Non-distended, No tenderness, No masses, No rebound, No guarding - Studies Medications List Reviewed: Yes Assessment And Plan - Current Problems (Diagnosis) (1) Small bowel obstruction due to adhesions Onset Date: 10/03/17 Current Visit: Yes Status: Acute Plan: - hold NG tube today - ambulate with assist - electrolyte correction - serial exams - incentive spirometry - medical management
[2017-10-05] MEDS: INSULIN -REGULAR HUMAN 50 UNIT/0.5 ML ML SQ SCH ×2 (11:53→18:00)
[2017-10-05] MEDS ORDERED: AA 5%/D20W/ELECTROLYTES-TPN 2,000 ML, Lipids 20% 250 ML with MULTIVITAMINS INJ 10 ML IV SCH ×3 (17:00)
[2017-10-05] MEDS ORDERED: ENOXAPARIN 40 MG/0.4 ML SQ SCH (17:00)
[2017-10-06 05:13] LABS: Absolute Lymphocytes (CBC) 1.6 K/uL (0.7-4.9); Absolute Monocytes 0.4 K/uL (0.1-1.3); Absolute Neutrophil 4.2 K/uL (1.8-8.0); Basophils % 0.3 % (0-1.3); Eosinophils % 0.4 % (0-4.4); Hematocrit 24.7 % (36.0-45.0); Lymphocytes % 25.4 % (15.3-44.8); MCH 31.1 pg (27.0-35.0); MCV 95.8 fL (80-100); MPV 8.2 fL (7.6-11.3); Monocytes % 6.5 % (3.3-12.3); RBC Red Blood Cell Count 2.58 M/uL (3.86-4.86)
[2017-10-06 05:44] LABS: BUN Blood Urea Nitrogen 12 mg/dL (6-20); Bicarbonate 27 mEq/L (21-31); Glomerular Filtration Rate > 90 mL/min (=/>90); Glucose Level 116 mg/dL (65-120); Potassium 3.8 mEq/L (3.6-5.0); Sodium Level 134 mEq/L (135-145)
[2017-10-06] MEDS: INSULIN -REGULAR HUMAN 50 UNIT/0.5 ML ML SQ SCH ×4 (06:00→18:00)
[2017-10-06] MEDS ORDERED: KCL 20 MEQ/100 mL IVPB 20 MEQ/100 ML BAG IV SCH (07:00)
[2017-10-06] MEDS: CYANOCOBALAMIN 1,000 MCG TAB PO SCH (10:00)
[2017-10-06] MEDS: VITAMIN D 1000 UNIT TAB PO SCH (10:00)
[2017-10-06] MEDS: Levofloxacin500mg IV 500 MG/100 ML BAG IV SCH (10:02)
[2017-10-06] MEDS: AA 5%/D20W/ELECTROLYTES-TPN 2,000 ML, Lipids 20% 250 ML with MULTIVITAMINS INJ 10 ML IV SCH ×3 (10:02)
[2017-10-06] MEDS: PANTOPRAZOLE 40 MG INJ IVP SCH (10:02)
--- NOTE | 2017-10-06 13:06 | P.PN ---
Subjective Date of Service: 10/06/17 Primary Care Provider: Dr. Caldwell([place]) Chief Complaint: Small-bowel obstruction Subjective: Improving (Patient without any significant abdominal pain. Nausea resolved.) Physical Examination - Vital Signs Temperature: 97.3 F Blood Pressure: 105/71 Pulse: 84 Respirations: 16 Pulse Ox (%): 98 - Physical Exam General: Alert, In no apparent distress, Oriented x3, Cooperative HEENT: Atraumatic Neck: Supple Respiratory: Clear to auscultation bilaterally, Normal air movement Cardiovascular: Normal pulses, Regular rate/rhythm Gastrointestinal: Normal bowel sounds, Soft and benign, Non-distended, No tenderness, No masses, No rebound, No guarding Musculoskeletal: No erythema, No tenderness, No warmth Integumentary: No tenderness/swelling, No erythema, No warmth, No cyanosis Neurological: Normal speech, Normal strength at 5/5 x4 extr, Normal tone, Normal affect - Studies Medications List Reviewed: Yes Assessment & Plan - Problems (Diagnosis) (1) Hypokalemia Current Visit: Yes Status: Acute Plan: Will continue monitor and replace appropriately. Replacement protocol in place. (2) Hyponatremia Current Visit: Yes Status: Acute Plan: Will continue with IV fluids. PICC line in place. Patient to get TPN. Overall this has improved. (3) Anemia Current Visit: Yes Status: Acute Plan: Patient with anemia. This is likely dilutional. Will monitor closely. Patient with mild iron deficiency anemia. Will start multi vitamin. Will monitor hemoglobin. Qualifiers: Anemia type: unspecified type Qualified Code(s): D64.9 - Anemia, unspecified (4) Dehydration Current Visit: Yes Status: Acute Plan: Case discussed at length with surgery. IV fluids will be discontinued. Patient on TPN. Patient will be transitioned off TPN once she is able to tolerate food. (5) Small bowel obstruction due to adhesions Onset Date: 10/03/17 Current Visit: Yes Status: Acute Plan: Case discussed at length with surgery. NG tube to be clamped. If stable this will be removed. Patient will have her diet advanced to low residue diet. Hopefully by tomorrow if the patient is well then the patient can be discharged home on a low residue diet. Will continue to ambulate patient. (6) History of DVT (deep vein thrombosis) Current Visit: Yes Status: Chronic Plan: Patient with history of DVT. Patient reports history of DVT to the lower extremity in July. She has been on medication since that time. Will continue back on Xarelto once the patient is able to take oral intake. (7) Chronic anticoagulation Current Visit: Yes Status: Chronic Plan: Will continue with with her medication. (8) Acute renal failure Current Visit: Yes Status: Acute Plan: Continue with IV fluid hydration. This has improved. Will monitor closely. Qualifiers: Acute renal failure type: unspecified Qualified Code(s): N17.9 - Acute kidney failure, unspecified Discharge Plan: Home Plan to discharge in: 24 Hours Time Spent Managing Pts Care (In Minutes): 55
[2017-10-06] MEDS ORDERED: RIVAROXABAN 15 MG TABLET PO SCH (17:00)
[2017-10-07] MEDS: INSULIN -REGULAR HUMAN 50 UNIT/0.5 ML ML SQ SCH ×3 (06:00→12:00)
[2017-10-07 06:30] LABS: BUN Blood Urea Nitrogen 17 mg/dL (6-20); Bicarbonate 28 mEq/L (21-31); Glomerular Filtration Rate > 90 mL/min (=/>90); Glucose Level 103 mg/dL (65-120); Phosphorus 2.7 mg/dL (2.5-4.3); Potassium 4.3 mEq/L (3.6-5.0); Sodium Level 134 mEq/L (135-145)
[2017-10-07 06:35] LABS: Magnesium 1.4 mg/dL (1.8-2.5)
[2017-10-07] MEDS ORDERED: Magnesium Sulfate 2gm IVPB 2 G/50 ML BAG IV ONE (07:00)
--- NOTE | 2017-10-07 08:13 | P.PN ---
Subjective Date of Service: 10/07/17 Primary Care Provider: Dr. Caldwell([place]) Chief Complaint: Small-bowel obstruction Subjective: Improving (No abdominal pain or nausea noted. Patient tolerating full diet.) Physical Examination - Vital Signs Temperature: 98.4 F Blood Pressure: 100/68 Pulse: 78 Respirations: 18 Pulse Ox (%): 95 - Physical Exam General: Alert, In no apparent distress, Oriented x3, Cooperative HEENT: Atraumatic, Mucous membr. moist/pink Neck: Supple, No Thyromegaly Respiratory: Clear to auscultation bilaterally, Normal air movement Cardiovascular: Normal pulses, Regular rate/rhythm Gastrointestinal: Normal bowel sounds, Soft and benign, Non-distended, No tenderness, No masses, No rebound, No guarding, Other (Colostomy bag in place ) Musculoskeletal: No erythema, No tenderness, No warmth Integumentary: No erythema, No warmth, No cyanosis Neurological: Normal speech, Normal strength at 5/5 x4 extr, Normal tone, Normal affect Lymphatics: No axilla or inguinal lymphadenopathy - Studies Medications List Reviewed: Yes Assessment & Plan - Problems (Diagnosis) (1) Hypokalemia Current Visit: Yes Status: Acute Plan: Will continue monitor and replace appropriately. Replacement protocol in place. Will advance diet to a low residue diet. If the patient tolerates this then will plan for discharge. Patient will need GI evaluation as an outpatient including EGD and colonoscopy. Patient will need to follow up with surgery as well. If the patient remains in the hospital the patient will be followed by Dr. Omalley as I will be out of town this weekend. (2) Hyponatremia Current Visit: Yes Status: Acute Plan: Will continue with IV fluids. This has improved. Will continue with above plan of care. (3) Anemia Current Visit: Yes Status: Acute Plan: Patient with anemia. This is likely dilutional. Will monitor closely. Patient with mild iron deficiency anemia. Will start multi vitamin. Will monitor hemoglobin. Qualifiers: Anemia type: unspecified type Qualified Code(s): D64.9 - Anemia, unspecified (4) Dehydration Current Visit: Yes Status: Acute Plan: Continue with TPN. Will transition to oral medication. Will continue with above plan of care. (5) Small bowel obstruction due to adhesions Onset Date: 10/03/17 Current Visit: Yes Status: Acute Plan: Case discussed at length with surgery. Will advance diet. If she tolerates this then will plan for discharge this afternoon. Patient will need GI evaluation as an outpatient and follow up with surgery. (6) History of DVT (deep vein thrombosis) Current Visit: Yes Status: Chronic Plan: Patient with history of DVT. Patient reports history of DVT to the lower extremity in July. She will continue with Xarelto. 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 (7) Chronic anticoagulation Current Visit: Yes Status: Chronic Plan: Will continue with with her medication. (8) Acute renal failure Current Visit: Yes Status: Resolved Plan: This has resolved. Qualifiers: Acute renal failure type: unspecified Qualified Code(s): N17.9 - Acute kidney failure, unspecified Discharge Plan: Home Plan to discharge in: 24 Hours Time Spent Managing Pts Care (In Minutes): 55
[2017-10-07] MEDS: VITAMIN D 1000 UNIT TAB PO SCH (08:48)
[2017-10-07] MEDS: PANTOPRAZOLE 40 MG INJ IVP SCH (08:49)
[2017-10-07] MEDS: CYANOCOBALAMIN 1,000 MCG TAB PO SCH (08:49)
[2017-10-07] MEDS ORDERED: levoFLOXacin 500 MG TAB PO SCH (09:00)
[2017-10-07] MEDS: AA 5%/D20W/ELECTROLYTES-TPN 2,000 ML, Lipids 20% 250 ML with MULTIVITAMINS INJ 10 ML IV SCH ×3 (09:00)
--- NOTE | 2017-10-07 11:29 | P.PN ---
Subjective Date of Service: 10/07/17 Primary Care Provider: Dr. Caldwell([place]) Chief Complaint: Small-bowel obstruction Subjective: Improving (NG tube out, tolerated full liquids, good gas in bag, ambulatory, no pain, no bloating) Physical Examination - Vital Signs Temperature: 98.4 F Blood Pressure: 100/68 Pulse: 78 Respirations: 18 Pulse Ox (%): 95 - Physical Exam General: Alert, In no apparent distress, Cooperative Gastrointestinal: Soft and benign, No ascites, No tenderness, No masses, No rebound, No guarding, Other (ostomy functional) - Studies Medications List Reviewed: Yes Assessment And Plan - Current Problems (Diagnosis) (1) Small bowel obstruction due to adhesions Onset Date: 10/03/17 Current Visit: Yes Status: Acute Plan: - ok to DC home if tolerates soft, low residue diet - ambulate with assist - electrolyte correction - serial exams - incentive spirometry - medical management - follow up with me in clinic in 2 weeks - Dr. Noe will cover on tuesday and tuesday
--- NOTE | 2017-10-07 12:24 | P.DS ---
Admission Date: 10/02/17 Discharge Date: 10/07/17 Primary Care Provider: Dr. Caldwell([place]) Disposition: ROUTINE DISCHARGE Discharge Condition: GOOD Reason for Admission: Small-bowel obstruction Consultations: Surgery-Dr. Corea Procedures: CT scan: FINDINGS: The lower lung magana are clear. Diffuse severe fatty liver infiltration is noted.The spleen, pancreas, adrenal glands and kidneys are unremarkable for limited noncontrast assessment. Severe dilatation of the small bowel is identified. The colon appears largely decompressed. A left lower quadrant ostomy is noted. No free intraperitoneal air seen. No pneumatosis is identified. No portal venous gas is seen. The appendix is not visualized. Aortic atherosclerosis is present. The osseous structures are within normal limits. IMPRESSION: Very severe mechanical small bowel obstruction - Problems (1) Hypokalemia Current Visit: Yes Status: Acute (2) Hyponatremia Current Visit: Yes Status: Acute (3) Anemia Current Visit: Yes Status: Acute Qualifiers: Anemia type: unspecified type Qualified Code(s): D64.9 - Anemia, unspecified (4) Dehydration Current Visit: Yes Status: Acute (5) Small bowel obstruction due to adhesions Onset Date: 10/03/17 Current Visit: Yes Status: Acute (6) History of DVT (deep vein thrombosis) Current Visit: Yes Status: Chronic (7) Chronic anticoagulation Current Visit: Yes Status: Chronic (8) Acute renal failure Current Visit: Yes Status: Resolved Qualifiers: Acute renal failure type: unspecified Qualified Code(s): N17.9 - Acute kidney failure, unspecified Brief History of Present Illness: 56-year-old female presented emergency room with abdominal pain. Patient with history of cervical cancer. She had a history of radiation therapy that led to small-bowel resection with colostomy. Patient found to have small bowel obstruction. Patient was admitted for further evaluation and treatment. Surgery was consulted. Hospital Course: During her stay. The patient was found to have small bowel obstruction. This is likely mechanical in nature related to possible adhesions. Patient was evaluated by surgery. No intervention was needed. Patient did require TPN during her stay. Small bowel obstruction resolved. At discharge she was ambulating. No abdominal pain or nausea was noted. She was able tolerate a low residue diet. At discharge she will continue with a low residue diet. Recommendation is for the patient to follow up with surgery in 1-2 weeks to follow up this hospitalization. Patient will need EGD colonoscopy in the near future to further assess. Patient has iron and B12 deficiency anemia. Patient was anemic during her stay. This remained stable, no requirement of blood transfusion was noted. At discharge she will continue with iron 325 mg 1 pill twice daily and B12 supplementation daily. Recommendation is to recheck CBC, iron and B12 in 2-4 weeks to monitor progress. Patient with history of DVT on chronic anti coagulation therapy. Patient will continue with chronic anti coagulation therapy-Xarelto daily. Further adjustment can be done by her PCP. Patient with history of cervical cancer. She is to follow up with gynecology. Patient had electrolyte abnormality with acute renal failure. This resolved. At discharge she will require magnesium. At discharge she will continue magnesium oxide 400 mg daily. Recommendation is to recheck lab in 1 week to monitor progress. Recheck BMP at that time as well. Vital Signs/Physical Exam: Temp Pulse Resp BP Pulse Ox 98.4 F 78 18 100/68 95 10/07/17 11:29 10/07/17 11:29 10/07/17 11:29 10/07/17 11:29 10/07/17 11:29 General: Alert, In no apparent distress, Oriented x3, Cooperative HEENT: Atraumatic, Mucous membr. moist/pink Neck: Supple Respiratory: Clear to auscultation bilaterally, Normal air movement Cardiovascular: Normal pulses, Regular rate/rhythm Gastrointestinal: Normal bowel sounds, Soft and benign, Non-distended, No tenderness, No masses, No rebound, No guarding, Other (Colostomy in place.) Musculoskeletal: No erythema, No tenderness, No warmth Integumentary: No tenderness/swelling, No erythema, No warmth, No cyanosis Neurological: Normal speech, Normal strength at 5/5 x4 extr, Normal tone, Normal affect Laboratory Data at Discharge: WBC 6.3 K/uL (4.3-10.9) D 10/06/17 04:45 Hgb 8.0 g/dL (12.0-15.0) L 10/06/17 04:45 Hct 24.7 % (36.0-45.0) L 10/06/17 04:45 Plt Count 260 K/uL (152-406) 10/06/17 04:45 PT 19.9 SECONDS (9.5-12.5) H 10/01/17 18:50 INR 1.68 10/01/17 18:50 APTT 29.1 SECONDS (24.3-36.9) 10/01/17 18:50 Sodium 134 mEq/L (135-145) L 10/07/17 05:55 Potassium 4.3 mEq/L (3.6-5.0) 10/07/17 05:55 BUN 17 mg/dL (6-20) 10/07/17 05:55 Creatinine 0.53 mg/dL (0.44-1.00) 10/07/17 05:55 Glucose 103 mg/dL (65-120) 10/07/17 05:55 Phosphorus 2.7 mg/dL (2.5-4.3) 10/07/17 05:55 Magnesium 1.4 mg/dL (1.8-2.5) L* D 10/07/17 05:55 Total Bilirubin 1.4 mg/dL (0.3-1.2) H 10/02/17 04:38 AST 24 IU/L (10-42) 10/02/17 04:38 ALT 27 IU/L (10-60) 10/02/17 04:38 Alkaline Phosphatase 109 IU/L (42-121) 10/02/17 04:38 Lipase < 10 U/L (22-51) L 10/01/17 18:50 Home Medications: Cholecalciferol (Vitamin D3) [Vitamin D3] 2,000 unit PO DAILY 10/02/17 Codeine/APAP [Tylenol #3*] 1 tab PO Q4H PRN 10/02/17 Cyanocobalamin (Vitamin B-12) [Vitamin B-12] 500 mcg PO DAILY 10/02/17 Mirtazapine [Remeron*] 15 mg PO BEDTIME 10/02/17 Rivaroxaban [Xarelto*] 15 mg PO DAILY 10/02/17 Ferrous Sulfate [Iron] 325 mg PO BID #60 tablet 10/07/17 Magnesium Oxide [Mag 0X Tab] 400 mg PO DAILY #30 tab 10/07/17 Pantoprazole [Protonix Tab] 40 mg PO DAILY #30 tab 10/07/17 New Medications: Ferrous Sulfate [Iron] 325 mg PO BID #60 tablet Magnesium Oxide [Mag 0X Tab] 400 mg PO DAILY #30 tab Pantoprazole [Protonix Tab] 40 mg PO DAILY #30 tab Patient Discharge Instructions: 1. Patient will need to follow up with her PCP in 1 week to follow up this hospitalization. 2. Patient presented with abdominal pain. She was found to have small bowel obstruction. Patient evaluated by surgery. No intervention was needed. Small bowel obstruction resolved. At discharge she will continue with a low residue diet. Recommendation is for the patient to follow up with surgery in 1-2 weeks to follow up this hospitalization. Patient will need EGD colonoscopy in the near future to further assess. 3. Patient has iron and B12 deficiency anemia. She will continue with iron 325 mg 1 pill twice daily and B12 supplementation daily. Recommendation is to recheck CBC, iron and B12 in 2-4 weeks to monitor progress. 4. Patient with history of DVT on chronic anti coagulation therapy. Patient will continue with chronic anti coagulation therapy-Xarelto daily. Further adjustment can be done by her PCP. 5. Patient with history of cervical cancer. She is to follow up with gynecology. 6. Patient had low magnesium level. She will continue with magnesium oxide 400 mg daily. Recommendation is to recheck lab in 1 week to monitor progress. Recheck BMP at that time as well. Diet: Low residue diet Activity: Ad jes Time spent managing pt's care (in minutes): 55
== END 2017-10-07 14:56 | disposition home or self-care (01) | DRG 389 ==
LOC: ER 18:05 → ERHOLD 10-02 00:05 → 2ND 10-02 00:53
PROVIDERS: ADMIT Hospitalist; ATTEND Family Medicine
PROC: 02HV33Z Insertion of Infusion Device into Superior Vena Cava, Percutaneous Approach (ICD-10-PCS; principal; 2017-10-04)
DX: K56.50 Intestinal adhesions [bands], unspecified as to partial versus complete obstruction (principal); E87.1 Hypo-osmolality and hyponatremia; N17.9 Acute kidney failure, unspecified; E87.6 Hypokalemia; D64.9 Anemia, unspecified; E86.0 Dehydration; F17.200 Nicotine dependence, unspecified, uncomplicated; Z79.01 Long term (current) use of anticoagulants; Z86.718 Personal history of other venous thrombosis and embolism
CPT/HCPCS: 36415; 71045; 74018; 74022; 74176; 80048; 80053; 80076; 81003; 81015; 82607; 82728; 82962; 83540; 83690; 83735; 84100; 84132; 84466; 85014; 85018; 85025; 85610; 85730; 87086; 87088; 93005; 96361; 96365; 96366; 96368; 96375; 97163; 99285; C9113; J0610; J1650; J2405; J3475; J7030

== ENCOUNTER 2017-10-17 12:03 | Inpatient (IN) | payer OTHER ==
[2017-10-17] MEDS ORDERED: NA CHLORIDE 0.9% 1,000 ML ONE ×2 (13:30→14:35)
[2017-10-17 13:44] LABS: Absolute Lymphocytes (CBC) 0.9 K/uL (0.7-4.9); Absolute Monocytes 0.3 K/uL (0.1-1.3); Absolute Neutrophil 3.5 K/uL (1.8-8.0); Basophils % 0.4 % (0-1.3); Eosinophils % 0.5 % (0-4.4); Hematocrit 31.7 % (36.0-45.0); Lymphocytes % 18.9 % (15.3-44.8); MCH 30.6 pg (27.0-35.0); MCV 93.6 fL (80-100); MPV 8.5 fL (7.6-11.3); Monocytes % 6.4 % (3.3-12.3); RBC Red Blood Cell Count 3.38 M/uL (3.86-4.86)
[2017-10-17] MEDS ORDERED: CYANOCOBALAMIN 1000MCG/ML INJ IM ONE (13:45)
[2017-10-17 13:47] LABS: Protime INR 2.19
[2017-10-17 13:48] LABS: Bicarbonate 25 mEq/L (21-31); Glucose Level 99 mg/dL (65-120); Potassium 3.6 mEq/L (3.6-5.0); Sodium Level 132 mEq/L (135-145)
[2017-10-17 14:03] LABS: ALT/SGPT 24 IU/L (10-60); AST/SGOT 23 IU/L (10-42); Albumin 2.3 g/dL (3.2-5.5); Alkaline Phosphatase 136 IU/L (42-121); Amylase Level 7 U/L (28-100); BUN Blood Urea Nitrogen 55 mg/dL (6-20); Bilirubin Direct 0.4 mg/dL (0-0.2); Bilirubin Total 0.9 mg/dL (0.3-1.2); C-Reactive Protein 45.6 mg/L (<10.0); CKMB Creatine Kinase MB 1.5 ng/ml (0.3-4.0); Creatine Phosphokinase 36 IU/L (22-269); Protein, Total 4.9 g/dL (6.0-8.3)
[2017-10-17 14:04] LABS: Lipase < 10 U/L (22-51)
--- NOTE | 2017-10-17 14:30 | RAD REPORT ---
EXAM DESCRIPTION: RAD - Chest Single View - 10/17/2017 2:17 pm CLINICAL HISTORY: Weakness, shortness of breath COMPARISON: October 04 TECHNIQUE: AP portable chest image was obtained 1401 hours . FINDINGS: No focal lung parenchymal process. No failure or volume overload. Lung markings are promin ent but stable. Trachea is midline. Heart and vasculature are normal. No measurable pleural effusion and no pneumothorax. No gross bony abnormality seen. No acute aortic finding. Right upper extremity P ICC line has been removed since prior imaging. NG tube has been removed since prior imaging. Prominent upper abdominal bowel gas pattern not fully assessed on this study. IMPRESSION: No acute cardiopulmonary process. No significant change to the chest since prior imaging.
[2017-10-17 15:18] LABS: Urine Amorphous Sediment 1+ /HPF (NONE SEEN); Urine Bacteria NONE SEEN /HPF (<20); Urine Culture Reflex Order NOT NEEDED; Urine RBC <5 /HPF (NONE SEEN)
[2017-10-17 15:44] LABS: Urine Blood NEGATIVE (NEG); Urine Glucose NEGATIVE (NEG); Urine Protein NEGATIVE (NEG); Urine Specific Gravity 1.015 (1.005-1.030)
[2017-10-17 15:46] LABS: Urine Blood NEGATIVE (NEG); Urine Glucose NEGATIVE (NEG); Urine Protein NEGATIVE (NEG); Urine Specific Gravity 1.015 (1.005-1.030)
--- NOTE | 2017-10-17 15:58 | EDPHYS ---
Physician Documentation [facility] Name: Lyric Barnard Age: 56 yrs Sex: Female : 1960 Arrival Date: 10/17/2017 Time: 12:04 Bed 4 Private MD: ED Physician Liban Barrera HPI: 10/17 13:49 This 56 yrs old Female presents to ER via Wheelchair with complaints of snw Bloody Stools, Dizziness. 13:49 c/o generalized weakness, malnutrition . Onset: The symptoms/episode began/occurred snw gradually, and became worse. Severity of symptoms: At their worst the symptoms were severe. The patient has experienced a previous episode, last week, but today's symptoms are worse. The patient has been recently seen by a physician: with similar presenting complaints, pt admitted with a bowel obstruction last week, has not regained strength, remains unable to nourish herself, spoke with Oncology today and they recommended pt return to ED. 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 - Social history:: Smoking status: Patient uses tobacco products, denies chronic smoking, but will smoke occasionally. ROS: 13:46 Eyes: Negative for injury, pain, redness, and discharge, ENT: Negative for injury, snw pain, and discharge, Neck: Negative for injury, pain, and swelling, Cardiovascular: Negative for chest pain, palpitations, and edema, Respiratory: Negative for shortness of breath, cough, wheezing, and pleuritic chest pain. 13:46 Back: Negative for injury and pain, : Negative for injury, bleeding, discharge, and swelling, MS/Extremity: Negative for injury and deformity. 13:46 Constitutional: Positive for fatigue, malaise, poor PO intake. 13:46 Abdomen/GI: Positive for blood in colostomy since last pm. 13:46 Skin: Positive for pallor. 13:46 Neuro: Positive for weakness. Exam: 13:32 Head/Face: Normocephalic, atraumatic. snw 13:32 ENT: Nares patent. No nasal discharge, no septal abnormalities noted. Tympanic membranes are normal and external auditory canals are clear. Oropharynx with no redness, swelling, or masses, exudates, or evidence of obstruction, uvula midline. Mucous membranes moist. Neck: Trachea midline, no thyromegaly or masses palpated, and no cervical lymphadenopathy. Supple, full range of motion without nuchal rigidity, or vertebral point tenderness. No Meningismus. Chest/axilla: Normal chest wall appearance and motion. Nontender with no deformity. No lesions are appreciated. Cardiovascular: Regular rate and rhythm with a normal S1 and S2. No gallops, murmurs, or rubs. Normal PMI, no JVD. No pulse deficits. Respiratory: Lungs have equal breath sounds bilaterally, clear to auscultation and percussion. No rales, rhonchi or wheezes noted. No increased work of breathing, no retractions or nasal flaring. 13:32 Back: No spinal tenderness. No costovertebral tenderness. Full range of motion. MS/ Extremity: Pulses equal, no cyanosis. Neurovascular intact. Full, normal range of motion. 13:32 Neuro: Awake and alert, GCS 15, oriented to person, place, time, and situation. Cranial nerves II-XII grossly intact. Motor strength 5/5 in all extremities. Sensory grossly intact. Cerebellar exam normal. Normal gait. 13:32 Constitutional: The patient appears frail, lethargic, obviously ill, pale. 13:32 Eyes: Conjunctiva: pale, bilaterally. 13:32 Abdomen/GI: Inspection: distension, that is moderate, colostomy with dark bloody output, Palpation: moderate abdominal tenderness, in all quadrants. 13:32 Skin: Appearance: Color: pale, Temperature: normal temperature. Vital Signs: 12:33 BP 60 / 49; Pulse 111; Resp 15; Temp 98.0(TE); Pulse Ox 96% on R/A; Weight 45.36 kg lk1 (R); Height 5 ft. 6 in. (167.64 cm) (R); Pain 4/10; 13:20 BP 78 / 59; Pulse 96; Resp 20; Pulse Ox 100% on R/A; ph 13:56 BP 89 / 65; Pulse 99; Resp 14; Pulse Ox 100% on R/A; sv 14:49 BP 85 / 70; Pulse 84; Resp 12; Pulse Ox 100% ; sv 15:45 BP 81 / 61; Pulse 89; Resp 15; Pulse Ox 99% on R/A; jb1 16:30 BP 83 / 57; Pulse 91; Resp 12; Pulse Ox 100% ; sv 17:02 BP 78 / 56; Pulse 91; Resp 12; Pulse Ox 100% on NC; sv 12:33 Body Mass Index 16.14 (45.36 kg, 167.64 cm) lk1 MDM: 13:01 Patient medically screened. snw 14:13 Data reviewed: vital signs, nurses notes. Data interpreted: Pulse oximetry: on room air snw is 100 %. Interpretation: normal. Counseling: I had a detailed discussion with the patient and/or guardian regarding: the historical points, exam findings, and any diagnostic results supporting the discharge/admit diagnosis, lab results. Physician consultation: Willard Corea MD was called at 14:14, was contacted at 14:14, regarding consult, patient's condition, after a discussion of the case, a recommendation for transfer for higher level of care is made. 14:20 Physician consultation: in the emergency department to see patient at 14:20. w 10/17 13:23 Order name: TS 10/17 13:23 Order name: Urine Microscopic Only; Complete Time: 15:22 w 10/17 13:23 Order name: Urine Culture 10/17 13:23 Order name: Amylase, Serum; Complete Time: 14:13 snw 10/17 13:23 Order name: Basic Metabolic Panel; Complete Time: 14:13 w 10/17 13:23 Order name: Blood Culture Adult (2) 10/17 13:23 Order name: C-Reactive Protein; Complete Time: 14:13 snw 10/17 13:23 Order name: CBC with Diff; Complete Time: 14:36 snw 10/17 13:23 Order name: Ckmb; Complete Time: 14:13 snw 10/17 13:23 Order name: CPK; Complete Time: 14:13 snw 10/17 13:23 Order name: Lactate; Complete Time: 13:51 snw 10/17 13:23 Order name: LFT's; Complete Time: 14:13 snw 10/17 13:23 Order name: Lipase; Complete Time: 14:13 snw 10/17 13:23 Order name: Cath; Complete Time: 15:17 snw 10/17 13:23 Order name: Protime (+inr); Complete Time: 13:51 snw 10/17 13:23 Order name: Ptt, Activated; Complete Time: 13:51 snw 10/17 13:23 Order name: Sed Rate; Complete Time: 14:36 snw 10/17 13:23 Order name: Troponin (emerg Dept Use Only); Complete Time: 13:58 snw 10/17 13:23 Order name: Chest Single View XRAY; Complete Time: 14:36 snw 10/17 14:39 Order name: Urine Dipstick--Ancillary (enter results); Complete Time: 15:47 5 10/17 15:21 Order name: Urine Dipstick-Ancillary; Complete Time: 15:47 EDMS 10/17 15:49 Order name: EKG Electrocardiogram EDNV 10/17 16:06 Order name: CONS Physician Consult EDNV 10/17 16:06 Order name: Dietitian Consult EDNV 10/17 16:06 Order name: NPO EDNV 10/17 16:10 Order name: CONS Pharmacy Consult EDNV 10/17 13:23 Order name: Cardiac monitoring; Complete Time: 13:27 snw 10/17 13:23 Order name: EKG - Nurse/Tech; Complete Time: 13:58 snw 10/17 13:23 Order name: IV Saline Lock - Large Bore; Complete Time: 13:27 snw 10/17 13:23 Order name: Labs collected and sent; Complete Time: 13:27 snw 10/17 13:23 Order name: O2 Per Protocol; Complete Time: 13:27 snw 10/17 13:23 Order name: O2 Sat Monitoring; Complete Time: 13:28 snw 10/17 13:23 Order name: Urine Dipstick-Ancillary (obtain specimen); Complete Time: 14:14 snw Administered Medications: 13:38 Drug: NS 0.9% 1000 ml Route: IV; Rate: 1 bolus; Site: right antecubital; ph 14:40 Follow up: Response: No adverse reaction; IV Status: Completed infusion; IV Intake: sv 1000ml 13:58 Drug: Cyanocobalamin 1000 mcg Route: IM; Site: right deltoid; dm5 15:16 Follow up: Response: No adverse reaction sv 15:00 Drug: NS 0.9% 1000 ml Route: IV; Rate: 1000 ml; Site: right antecubital; sv 16:00 Follow up: Response: No adverse reaction; IV Status: Completed infusion; IV Intake: sv 1000ml Disposition: 21:08 Co-signature as Attending Physician, Liban Barrera MD. rn Disposition: 10/17/17 15:58 Hospitalization ordered by Kyra Zacarias for Inpatient Admission. Preliminary diagnosis are Dehydration, Hypotension, Bowel obstruction. - Bed requested for Intensive Care Unit. - Status is Inpatient Admission. sv - Condition is Stable. - Problem is an acute exacerbation. - Symptoms have worsened. UTI on Admission? No Signatures: Dispatcher [employer] EDMS Marlena Carter, RN RN dm5 Maria Ines Amin RN Liyah Goodman RN RN Mercy Romero, DISPATCHER TOW TRUCK-C DISPATCHER TOW TRUCK-Csnw Liban Barrera MD MD rn Hall, Patricia, RN RN Jodi Berrios, RN RN lk1 Corrections: (The following items were deleted from the chart) 13:37 13:24 Procalcitonin+C.LAB.BRZ ordered. EDMS EDMS 15:17 13:23 Accucheck ordered. snw sv
--- NOTE | 2017-10-17 15:58 | ER ---
Nurse's Notes [facility] Name: Lyric Barnard Age: 56 yrs Sex: Female : 1960 Arrival Date: 10/17/2017 Time: 12:04 Bed 4 Private MD: Diagnosis: Dehydration;Hypotension;Bowel obstruction Presentation: 10/17 12:29 Presenting complaint: states: "She had a bowel obstruction last week when we lk1 were here. Now she has blood in her stools and she is dizzy. She hasn't gained her strength back. We called her oncologist and they told us to come here.". Transition of care: patient was not received from another setting of care. Onset of symptoms was October 16, 2017 at 20:00. Initial Sepsis Screen: Does the patient meet any 2 criteria? Systolic BP < 90 mmHg. HR > 90 bpm. Yes Does the patient have a suspected source of infection? No. Patient initial sepsis screen negative. Care prior to arrival: None. 12:29 Method Of Arrival: Wheelchair lk1 12:29 Acuity: LATIA 3 lk1 13:19 Acuity: LATIA 2 ph Triage Assessment: 12:32 General: Appears ill, slender, Behavior is calm, cooperative, appropriate for age. lk1 Pain: Complains of pain in back Pain currently is 4 out of 10 on a pain scale. Cardiovascular: Patient's skin is warm and dry. GI: Reports bloody stool. Derm: Skin is jaundiced, pale. BARGE PILOT: 12:33 LMP N/A - Post-menopause lk1 Historical: - Allergies: 12:32 tramadol; lk1 - PMHx: 12:32 cervical cancer; bowel obstruction; lk1 - PSHx: 12:32 colostomy bag; ; radiation; Bowel resection; lk1 - Immunization history:: Adult Immunizations up to date. - Social history:: Smoking status: Patient uses tobacco products, denies chronic smoking, but will smoke occasionally. Screenin:20 Abuse screen: Denies threats or abuse. Denies injuries from another. Nutritional ph screening: No deficits noted. Tuberculosis screening: No symptoms or risk factors identified. Fall Risk No fall in past 12 months (0 pts). No secondary diagnosis (0 pts). IV access (20 points). Ambulatory Aid- None/Bed Rest/Nurse Assist (0 pts). Gait- Weak (10 pts.). Mental Status- Oriented to own ability (0 pts). Total Gifford Fall Scale indicates Low Risk Score (25-44 pts). Fall prevention measures have been instituted. Side Rails Up X 2 Placed close to Nursing Station Frequent Obs/Assesments occuring Family Present and informed to notify staff if they need to leave bedside As available Patient and Family Educated on Fall Prevention Program and strategies. Assessment: 13:22 General: Appears in no apparent distress. uncomfortable, ill, slender, Behavior is ph calm, cooperative, appropriate for age. Pain: Complains of pain in back. Neuro: Level of Consciousness is awake, obeys commands, lethargic, Oriented to person, place, time, situation, Reports dizziness. Cardiovascular: Reports fatigue, lightheadedness, nausea, Denies chest pain, syncope, Capillary refill is sluggish in bilateral fingers Patient's skin is warm and dry. Respiratory: Airway is patent Respiratory effort is even, unlabored, Respiratory pattern is regular, symmetrical. GI: Abdomen is flat, non-distended, Colostomy site is clean and dry. Ostomy appliance is intact. Reports bloody stool, Patient currently denies abdominal pain, vomiting. Derm: Skin is intact, is fragile, Skin is pale, Skin temperature is cool. 13:45 General: Appears in no apparent distress. uncomfortable, slender, Behavior is calm, sv cooperative, appropriate for age. Pain: Complains of pain in back Pain currently is 4 out of 10 on a pain scale. Quality of pain is described as aching. Neuro: Level of Consciousness is awake, alert, obeys commands, Oriented to person, place, time, situation, Reports dizziness. Cardiovascular: Patient's skin is warm and dry. Respiratory: Respiratory effort is even, unlabored, Respiratory pattern is regular, symmetrical. GI: Abdomen is flat, non-distended, Colostomy site is clean and dry. Ostomy appliance is intact. Reports bloody stool. Derm: Skin is pale. 15:00 Reassessment: Patient appears in no apparent distress at this time. No changes from sv previously documented assessment. Patient and/or family updated on plan of care and expected duration. Pain level reassessed. Patient is alert, oriented x 3, equal unlabored respirations, skin warm/dry/pink. 16:47 Reassessment: Patient appears in no apparent distress at this time. No changes from sv previously documented assessment. Patient and/or family updated on plan of care and expected duration. Pain level reassessed. Patient is alert, oriented x 3, equal unlabored respirations, skin warm/dry/pink. Vital Signs: 12:33 BP 60 / 49; Pulse 111; Resp 15; Temp 98.0(TE); Pulse Ox 96% on R/A; Weight 45.36 kg lk1 (R); Height 5 ft. 6 in. (167.64 cm) (R); Pain 4/10; 13:20 BP 78 / 59; Pulse 96; Resp 20; Pulse Ox 100% on R/A; ph 13:56 BP 89 / 65; Pulse 99; Resp 14; Pulse Ox 100% on R/A; sv 14:49 BP 85 / 70; Pulse 84; Resp 12; Pulse Ox 100% ; sv 15:45 BP 81 / 61; Pulse 89; Resp 15; Pulse Ox 99% on R/A; jb1 16:30 BP 83 / 57; Pulse 91; Resp 12; Pulse Ox 100% ; sv 17:02 BP 78 / 56; Pulse 91; Resp 12; Pulse Ox 100% on NC; sv 12:33 Body Mass Index 16.14 (45.36 kg, 167.64 cm) lk1 ED Course: 12:04 Patient arrived in ED. as 12:31 Triage completed. lk1 12:36 Arm band placed on left wrist. lk1 12:47 Myrtle Ramos RN is Primary Nurse. ph 13:01 [facility]. snw 13:01 Liban Barrera MD is Attending Physician. snw 13:21 Patient has correct armband on for positive identification. Bed in low position. Call ph light in reach. Side rails up X2. single pointed operator on. Pulse ox on. NIBP on. Warm blanket given. 13:21 Inserted saline lock: 22 gauge in right antecubital area, using aseptic technique. ph Blood collected. inserted by Mercy Romero NP. 13:40 Report received from BRANDON ELLIOTT. sv 13:50 Missed attempt(s): 22 gauge in left forearm. iw 14:12 Straight cath inserted, using sterile technique, 16 Fr. Specimen obtained. Returned sv kyler urine. Patient tolerated well. 14:15 Chest Single View XRAY In Process Unspecified. EDMS 14:20 X-ray completed. Portable x-ray completed in exam room. Patient tolerated procedure jr1 well. 14:49 Primary Nurse role handed off by Myrtle Ramos RN 14:49 Maria Ines Amin, EARL is Primary Nurse. sv 15:54 Liban Barrera MD is Hospitalizing Provider. snw 15:55 Liban Barrera MD is Hospitalizing Provider. snw 15:55 Kyra Zacarias MD is Hospitalizing Provider. snw 16:46 No provider procedures requiring assistance completed. Patient admitted, IV remains in sv place. intact. Administered Medications: 13:38 Drug: NS 0.9% 1000 ml Route: IV; Rate: 1 bolus; Site: right antecubital; ph 14:40 Follow up: Response: No adverse reaction; IV Status: Completed infusion; IV Intake: sv 1000ml 13:58 Drug: Cyanocobalamin 1000 mcg Route: IM; Site: right deltoid; dm5 15:16 Follow up: Response: No adverse reaction sv 15:00 Drug: NS 0.9% 1000 ml Route: IV; Rate: 1000 ml; Site: right antecubital; sv 16:00 Follow up: Response: No adverse reaction; IV Status: Completed infusion; IV Intake: sv 1000ml Intake: 14:40 IV: 1000ml; Total: 1000ml. sv 16:00 IV: 1000ml; Total: 2000ml. sv Outcome: 15:58 Decision to Hospitalize by Provider. snw 17:02 Admitted to ICU accompanied by nurse, accompanied by tech, via stretcher, room 6, with venancio, Ashwini Borja RN 17:02 Condition: stable 17:02 Instructed on the need for admit. 17:26 Patient left the ED. sv Signatures: Dispatcher [employer] EDMS Narciso Milian1 Marlena Carter RN RN dmMaria Ines Haider, RN EARL Mercy Romero, V[employer]ER-Edwige Betts jr1 Gela Mejia Irene, RN RN Myrtle Ramos RN RN Jodi Berrios RN RN lk1 Corrections: (The following items were deleted from the chart) 13:06 12:29 Initial Sepsis Screen: Does the patient meet any 2 criteria? No. Patient's lk1 initial sepsis screen is negative. Does the patient have a suspected source of infection? No. Patient initial sepsis screen negative. lk1 16:49 15:00 NS 0.9% 1000 ml IV at 1000 ml in right forearm sv sv
[2017-10-17] MEDS ORDERED: MORPHINE 4 MG/ML SYR IV PRN (15:59)
[2017-10-17] MEDS ORDERED: ACETAMINOPHEN 650MG/RECT SUPP PR PRN (15:59)
[2017-10-17] MEDS ORDERED: ONDANSETRON 4 MG/2 ML VIAL IV PRN (15:59)
[2017-10-17] MEDS: NA CHLORIDE 0.9% 1,000 ML IV SCH (17:27)
[2017-10-17] MEDS: METRONIDAZOLE 500mg IVPB 500 MG/100 ML BAG IV SCH (17:27)
[2017-10-17] MEDS: CIPROFLOXACIN 400mg IV 400 MG/200 ML BAG IV SCH (17:27)
[2017-10-17] MEDS ORDERED: NA CHLORIDE 0.9% 500 ML IV ONE (17:39)
[2017-10-17] MEDS ORDERED: LORazepam 2 MG/ML VIAL IV PRN (17:40)
[2017-10-17] MEDS ORDERED: NA CHLORIDE 0.9% 1,000 ML IV ONE ×2 (19:06→22:00)
[2017-10-17] MEDS ORDERED: NOREPINEPHRINE 4mg/D5W 250mL 4 MG/250 ML BAG IV ONE ×2 (20:40→23:08)
[2017-10-17] MEDS: NOREPINEPHRINE 4 MG in D5W 250 ML IV PRN ×2 (20:43→23:11)
--- NOTE | 2017-10-17 21:23 | RAD REPORT ---
EXAM DESCRIPTION: RAD - Chest Single View - 10/17/2017 9:16 pm CLINICAL HISTORY: PICC line placement COMPARISON: None. FINDINGS: Portable chest was obtained following placement of a right upper extremity PICC line. The catheter tip is in the mid SVC.
[2017-10-17] MEDS ORDERED: LORazepam 2 MG/ML VIAL IV ONE (23:00)
[2017-10-18] MEDS: METRONIDAZOLE 500mg IVPB 500 MG/100 ML BAG IV SCH ×3 (00:16→16:25)
[2017-10-18] MEDS ORDERED: NOREPINEPHRINE 4 MG/4 ML VIAL ONE ×2 (01:50→05:45)
[2017-10-18] MEDS ORDERED: D5W 250 ML IV ONE ×2 (01:50→05:45)
--- NOTE | 2017-10-18 03:50 | HP ---
Date of Admission: 10/17/2017 Consultants: Willard Corea MD, with General Surgery. Chief Complaint: Generalized weakness. Code Status: Full. History Of Present Illness: The patient is a 56-year-old female, who was recently discharged from [facility] on 10/07/2017, admitted with small bowel obstruction. The patient states that since then she has had a PET scan, which showed a small bowel obstruction. She otherwise denies any vomiting. Does report some nausea and denies any abdominal pain. The patient was seen by her oncologist. Ther e was no recurrence of her cancer. The patient has also lost significant amount of weight, about 30 pounds over the past 5 months. Her appetite has been low and she has been very lethargic and weak. The patient therefore came into the ER for further evaluation. Upon arrival to the ER, her vital sig ns showed hypotension, blood pressure 60/49, pulse was 111. She was afebrile. The patient's lab wor kup revealed elevated lactate. Creatinine was 1.57. Amylase and lipase were negative. CRP was elev ated. White count was normal. UA was also negative. The patient had x-ray done, which did not show any acute changes. The patient was then given IV fluids and Dr. Corea with Surgery was consulted by the ER. The patient was recommended to be admitted to the hospital for decompression. When seen in the ER, the patient was awake, alert, and oriented x3, in some mild distress. Absolutely refusing NG tube placement. She also refused NG tube placement to the ER provider and to the surgeon, states that it is uncomfortable and she thinks it does not make any difference since she has had recurrent small bowel obstruction. Past Medical History: Cervical cancer, status post radiation; DVT in the left leg, currently on Xare lto; multiple small bowel obstructions. Past Surgical History: Colostomy, placement of the left lower abdomen, small bowel resection, partia l colon resection. Allergies: TO TRAMADOL. Family History: No history of early coronary artery disease. Social History: The patient smokes daily about a pack per week. Denies any alcohol use or illicit d rug use. Stays at home, independent in her activities of daily living. Review of Systems: Eleven systems reviewed, negative except as per HPI. Physical Examination: Vital Signs: Blood pressure 81/61, respirations 15, pulse 89, O2 saturations 99% on room air, temper ature 98. Initial blood pressure was 60/49 with a pulse of 111, improved after IV fluid hydration. HEENT: Normocephalic, atraumatic. PERRLA, EOMI. Dry mucous membranes. Poor dentition. Conjunctiv a is anicteric. General: The patient is awake, alert, oriented x3, in some mild distress, appears older than stated age, ill-appearing, lethargic female. CV: S1, S2. Regular rate and rhythm. Peripheral pulses present. No murmurs. Respiratory: Clear to auscultation bilaterally. No wheezing. No stridor. No use of accessory musc les. Gastrointestinal: Abdomen is soft, distended, mild tenderness to palpation. The patient does have s ome liquid stool in her colostomy bag. No rebound or guarding. Extremities: No clubbing, cyanosis, or edema. No calf tenderness. Neuro: Cranial nerves 2 through 12 intact grossly, 5/5 strength bilateral upper and lower extremitie s. Sensation intact to light touch. Skin: No rashes. Normal skin turgor. Laboratory Data: UA is negative. Sodium 132, potassium 3.6, chloride 97, CO2 25, BUN 55, creatinine 1.57, glucose 99, lactic acid 22.3, calcium 7.7, total bilirubin 0.9, AST 23, ALT 24, alkaline phosp hatase 136. Troponin less than 0.03. CRP 45.6, albumin 2.3, amylase 7, lipase less than 10. INR 2. 19. WBC 4.8, H and H 10.3 and 31.7, platelets 710, neutrophils 73.8%. Chest x-ray shows no acute ca rdiopulmonary process. Assessment And Plan: A 56-year-old female with: 1.Small bowel obstruction secondary to adhesions. We will attempt conservative management with n.p. o. status. The patient has refused NG tube decompression. The patient was counseled extensively, susan conn, still continues to refuse. She understands that her hospital stay will be prolonged and the s mall bowel obstruction may not improve with bowel rest alone and may lead to surgical intervention. She understands risks. Appreciate Dr. Corea's input. 2.Severe protein-calorie malnutrition. 3.Acute kidney injury. We will continue with IV fluids. Monitor creatinine, likely secondary to pr erenal azotemia. 4.Hyponatremia. Continue IV fluids and monitor. 5.Thrombocytosis. 6.Normocytic, normochromic anemia, likely anemia of chronic disease. We will monitor H and H. 7.History of left lower extremity deep venous thrombosis on Xarelto. We will hold dose today, so th e patient can get PICC line and start TPN. 8.History of cervical cancer status post radiation. 9.History of partial bowel resection, status post colostomy. Keep n.p.o. 10.GI and DVT prophylaxis with PPI. The patient is already on Xarelto. We will initiate TPN. 11.Hypertension. We will continue with IV fluid hydration. 12.Elevated lactate. We will provide prophylactic antibiotics and continue to monitor. Plan: We will admit the patient to Med-Surg, place as inpatient. EMIGDIO Voice ID: [id number]
[2017-10-18 05:22] LABS: Absolute Lymphocytes (CBC) 1.3 K/uL (0.7-4.9); Absolute Monocytes 0.5 K/uL (0.1-1.3); Absolute Neutrophil 2.6 K/uL (1.8-8.0); Basophils % 0.5 % (0-1.3); Hematocrit 23.2 % (36.0-45.0); Lymphocytes % 28.5 % (15.3-44.8); MCH 30.1 pg (27.0-35.0); MCV 95.5 fL (80-100); Monocytes % 10.6 % (3.3-12.3); RBC Red Blood Cell Count 2.43 M/uL (3.86-4.86)
[2017-10-18] MEDS: NA CHLORIDE 0.9% 1,000 ML IV SCH ×2 (05:42→12:00)
[2017-10-18 06:37] LABS: Albumin 1.4 g/dL (3.2-5.5); Bilirubin Total 0.9 mg/dL (0.3-1.2); Potassium 3.2 mEq/L (3.6-5.0); Protein, Total 3.1 g/dL (6.0-8.3)
[2017-10-18] MEDS: KCL 20 MEQ/100 mL IVPB 20 MEQ/100 ML BAG IV SCH ×2 (07:57→10:21)
[2017-10-18] MEDS: CIPROFLOXACIN 400mg IV 400 MG/200 ML BAG IV SCH ×2 (08:14→22:09)
--- NOTE | 2017-10-18 08:29 | EKG ---
Test Date: 2017-10-17 Test Time: 13:55:02 Biomedical Engineer: KARUNA MEASUREMENT RESULTS: Intervals: Rate: 90 [place]: 118 QRSD: 74 QT: 382 QTc: 467 [place]: P: 77 [place]: 118 QRS: 61 T: 45 INTERPRETIVE STATEMENTS: Normal sinus rhythm Nonspecific ST abnormality Abnormal ECG Compared to ECG 10/01/2017 19:14:31 Short [place] interval no longer present ST (T wave) deviation still present Electronically Signed On 10-18-17 08:26:26 CDT by Lauri Blair
--- NOTE | 2017-10-18 09:22 | RAD REPORT ---
EXAM DESCRIPTION: VAS - Extrem Venous W Compress [place] - 10/18/2017 9:15 am CLINICAL HISTORY: Leg pain and swelling COMPARISON: None. TECHNIQUE: Real-time sonographic evaluation of the bilateral lower extremity deep venous systems was performed. FINDINGS: Normal compressibility, flow augmentation, phasic flow and spontaneous flow are identified in the left and right lower extremity deep venous systems. No intraluminal filling defects seen. IMPRESSION: No DVT in either lower extremity.
[2017-10-18] MEDS ORDERED: CALCIUM GLUC 10% INJ 4.65 MEQ in NA CHLORIDE 0.9% 100 ML IV ONE (10:40)
[2017-10-18] MEDS ORDERED: DEXTROSE 10%-WATER 500 ML IV SCH (11:00)
--- NOTE | 2017-10-18 11:21 | PN ---
Date of Progress Note: 10/18/2017 Subjective: The patient is seen and examined, chart reviewed, and case discussed with RN and Dr. Corea. The patient denies any pain. No nausea or vomiting. The patient is on pressors. Did have drop in her hemoglobin with some blood from her colostomy bag. Review of Systems: Negative except as above. Medications: Reviewed. Physical Examination: Vital Signs: Temperature 98.7, heart rate 91, blood pressure 85/61, respirations 10, O2 97% on room air. General: Awake, alert, oriented x3, in some mild distress. Ill-appearing female, appears older than stated age, cachectic. BMI 17. CV: S1, S2. No murmurs. Regular rate and rhythm. Peripheral pulses are weak bilaterally. Respiratory: Moving air well bilaterally. No wheezing. Gastrointestinal: Abdomen is soft. Mild distention. No tenderness. No guarding or rigidity. Colostomy bag in place. Extremities: No clubbing, cyanosis. The patient does have 2+ edema. Neurologic: Nonfocal. Laboratory Data: Sodium 133, potassium 3.2, chloride 106, CO2 20, BUN 47, creatinine 1.08, glucose 120, lactate 20.7, calcium 6.3, albumin 1.4, corrected calcium 8.3. WBC 4.4, H and H 7.3 and 23.2, platelets 470, neutrophils 58.4. Blood cultures pending. Urine culture shows mixed roseann. Doppler venous study shows no DVT in either lower extremity. Chest x-ray shows placement of PICC line. Assessment And Plan: A 56-year-old female with: 1. Hypotensive shock. The patient currently on pressors, likely secondary to small bowel obstruction and possible infection. We will continue with IV fluids and wean off the pressors as tolerated. Obtain CT abdomen to rule out bowel perforation 2. Acute blood loss anemia. We will transfuse 1 unit PRBCs and FFP. We will monitor H and H. We will consult GI. 3. GI bleed. IV PPI 4. Severe protein-calorie malnutrition. Albumin is 1.4. PICC line is in place. We will start TPN. 5. Small bowel obstruction secondary to adhesions. The patient has refused NG tube placement. We will continue with n.p.o. status. 6. Hyponatremia, improving. 7. Thrombocytosis, improving. 8. History of left lower extremity deep venous thrombosis. Xarelto on hold due to GI bleed. Doppler sono does not show any acute deep venous thrombosis at this time. 9. History of cervical cancer status post radiation. 10. History of partial bowel resection, status post colostomy. 11. Essential hypertension, currently hypotensive, on pressors at this time. 12. Gastrointestinal and deep venous thrombosis prophylaxis with PPI and SCDs. /STEPHANIE Voice ID: [id number] Report ID: [id number] MTDD
[2017-10-18 12:42] LABS: Hematocrit 19.6 % (36.0-45.0)
--- NOTE | 2017-10-18 13:24 | RAD REPORT ---
EXAM DESCRIPTION: CT - Chest Abd Pelvis Wo Con - 10/18/2017 1:07 pm CLINICAL HISTORY: Chest and abdomen pain. Hypotension. COMPARISON: 10/01/[address] scans are performed using dose optimization technique as appropriate and may includ e automated exposure control or mA/KV adjustment according to patient size. FINDINGS: Small bilateral pleural effusions are noted with subsegmental atelectasis in both lung bas es.No pericardial fluid or pneumothorax.No intrathoracic adenopathy. Diffuse fatty liver is noted. The spleen is small in size. The pancreas, adrenal glands and kidneys a re within normal limits for noncontrast imaging. Moderate mechanical small bowel obstruction is present. Left lower quadrant colostomy is present. Deg ree of mechanical bowel obstruction is moderately improved since the comparative study, but remains q uite significant small-bowel loops remain distended to 4-5 cm in diameter. There is no evidence of fr ee intraperitoneal air. Trace free fluid is seen in the pelvis. Carrillo catheter is in place with decom pression of the urinary bladder. No fracture or aggressive marrow lesion. IMPRESSION: No free intraperitoneal air or other findings suspicious for bowel perforation. Moderate mechanical small-bowel obstruction, still quite significant however moderately improved rela tive to comparative study.
[2017-10-18] MEDS: NOREPINEPHRINE 4 MG in D5W 250 ML IV PRN ×3 (13:29→23:19)
[2017-10-18] MEDS ORDERED: NA CHLORIDE 0.9% 100 ML ONE ×2 (13:31→18:10)
[2017-10-18] MEDS: PANTOPRAZOLE INJ 80 MG in NA CHLORIDE 0.9% 250 ML IV SCH (17:08)
[2017-10-18] MEDS: AA 5%/D20W/ELECTROLYTES-TPN 2,000 ML, Lipids 20% 250 ML with MULTIVITAMINS INJ 10 ML IV SCH ×3 (17:28)
[2017-10-18 20:22] LABS: Hematocrit 24.8 % (36.0-45.0)
[2017-10-18 20:27] LABS: Protime INR 1.77
[2017-10-19] MEDS: METRONIDAZOLE 500mg IVPB 500 MG/100 ML BAG IV SCH ×3 (02:28→17:37)
[2017-10-19] MEDS: PANTOPRAZOLE INJ 80 MG in NA CHLORIDE 0.9% 250 ML IV SCH ×4 (05:47→22:00)
[2017-10-19] MEDS: NA CHLORIDE 0.9% 1,000 ML IV SCH ×3 (05:48→18:00)
[2017-10-19 06:25] LABS: Absolute Lymphocytes (CBC) 1.1 K/uL (0.7-4.9); Absolute Monocytes 0.5 K/uL (0.1-1.3); Absolute Neutrophil 2.9 K/uL (1.8-8.0); Basophils % 0.7 % (0-1.3); Eosinophils % 1.4 % (0-4.4); Hematocrit 25.2 % (36.0-45.0); Lymphocytes % 23.9 % (15.3-44.8); MCH 31.6 pg (27.0-35.0); MCV 93.7 fL (80-100); MPV 8.7 fL (7.6-11.3); Monocytes % 10.7 % (3.3-12.3); RBC Red Blood Cell Count 2.68 M/uL (3.86-4.86)
[2017-10-19 06:42] LABS: Albumin 1.5 g/dL (3.2-5.5); Bilirubin Total 0.6 mg/dL (0.3-1.2); Phosphorus 1.5 mg/dL (2.5-4.3); Potassium 3.1 mEq/L (3.6-5.0); Protein, Total 3.3 g/dL (6.0-8.3)
[2017-10-19] MEDS: KCL 20 MEQ/100 mL IVPB 20 MEQ/100 ML BAG IV SCH ×4 (08:10→20:12)
[2017-10-19] MEDS: CIPROFLOXACIN 400mg IV 400 MG/200 ML BAG IV SCH ×2 (10:49→20:12)
--- NOTE | 2017-10-19 11:03 | P.PN ---
Subjective Date of Service: 10/19/17 Chief Complaint: PSBO Subjective: Improving (patient has no pain, good function has returned to colostomy.) Physical Examination - Vital Signs Temperature: 98.1 F Blood Pressure: 85/67 Pulse: 87 Respirations: 14 Pulse Ox (%): 97 - Physical Exam General: Alert, In no apparent distress, Cooperative Respiratory: Clear to auscultation bilaterally Gastrointestinal: Soft and benign, Distended (mild improved) Integumentary: No rashes Neurological: Normal speech - Studies Microbiology Data (last 24 hrs): 10/17/17 14:05 Catheterized Urine [place] Count - Final <10,000 CFU/ML. 10/17/17 14:05 Catheterized Urine - Final 10/17/17 13:32 Blood - Blood Anaerobic Blood Culture - Final 10/17/17 13:17 Blood - Blood Anaerobic Blood Culture - Final Assessment And Plan - Current Problems (Diagnosis) (1) Small bowel obstruction Onset Date: 10/18/17 Current Visit: Yes Status: Acute Plan: - continue pain management - incentive spirometry - serial exams, but abdomen much improved - TPN - electrolyte correction - transfused one unit PRBC and now off pressors - ambulate with assist - continue medical management
--- NOTE | 2017-10-19 15:52 | CON ---
Date of Consultation: 10/17/2017 Brief History Of Present Illness: The patient is a 56-year-old female known to me, recently dischar saul from the hospital on 10/07/2017 with a small partial small bowel obstruction. On that particular admission she came in with bloating, abdominal pain, distentions and imaging confirmed the presence of a mechanical small bowel obstruction. She improved with nonoperative management, received TPN and antibiotic coverage. During her last admission, she improved and was tolerating a soft diet and hav ing good return of bowel function through her ostomy appliance in the left lower quadrant and darren cm was discharged home with p.o. diet. She did well initially with p.o. diet and ultimately she sta henrry she started eating regular foods such as hamburger and things on this lines, but decreased p.o. i ntake. However, after eating a hamburger, she noted that she started having resumption of her small- bowel obstruction type symptoms with nausea, vomiting, abdominal distention, abdominal pain. After christos villagran admitted to the hospital here and being seen in the ER, she had some improvement in her symptoms , but continued to have essentially the same symptoms over her last admission. She had no fever, no chills. No actual vomiting but some nausea was persistent. She states that she had a PET-CT, which showed persistence of a bowel obstruction, I believe it was on 12 with her oncologist, but there was no evidence of recurrence of her cancer. She does have a history of cervical cancer status post elizabeth zation and radiation to the pelvis. She ultimately required ostomy creation due to what she states w as a significant bowel obstruction and adhesions by Dr. oMss in the [facility]. Past Medical History: Significant for cervical cancer, DVT in the left leg, multiple bowel obstructi ons. Past Surgical History: She has had conization and bowel obstruction leading to colostomy creation of the left lower quadrant. She has had a partial small bowel resection and partial colectomy. Allergies: TO TRAMADOL. Family History: Noncontributory. Social History: She smokes about a pack per week of cigarettes. Denies alcohol or recreational drug use. She stays at home. Home Medications: Include calciferol, codeine, cyanocobalamin, iron, Mag-Ox, Remeron, Protonix, and Xarelto for her history of left lower extremity DVT. Review of Systems: A 10-point review of systems other than a HPI, denies. Physical Examination: General: At the time of my examination, she is awake, alert, oriented. She appears to be in mild di stress. Psychiatric: She is appropriate. Conversive. Answers questions appropriately, although she is some what combative on this particular occasion, and is refusing an NG tube decompression HEENT: She is o therwise normocephalic. Her sclerae are anicteric. She has some temporal wasting and general malnut rition appearance. Oropharynx is dry. Neck: Supple. No JVD. Chest: Normal expansion and excursion. Cardiovascular: Tachycardia when seen in the emergency room at approximately 102. Abdomen: Soft with moderate distention, tympanic. No rebound. No guarding. No focal peritonitis. It is mildly tender generally. Her ostomy is in the left lower quadrant and appears to have minimal output at this time. Extremities: No clubbing, cyanosis, or edema. There is no swelling in her extremities appreciated d espite her history of DVT. Skin: Her skin is generally warm and dry. Vital signs: At the time examination, her BMI 17.7, her blood pressure was 85/62, pulse is 96, respi ratory rate is 9, temperature was 98.5. Laboratory Data: Reveals a white blood count of 4.8, hemoglobin 10.3, her hematocrit of 31.7, platel et count is 710, neutrophils 73%. Her PT is 26.1, INR 2.19, PTT is 30.9. Sodium 132, potassium 3.6, chloride 97, carbon dioxide 25, BUN 55, creatinine 1.5, glucose is 99, lactic acid 20.7, calcium 7.7 . Her total bilirubin 0.9, direct component 0.4, AST 23, ALT 24, alkaline phosphatase 136. Her lipa se is less than 10. Amylase was 7. She had a UA, which showed 5-10 white blood cells and 5-10 squam ous cells. She had only a chest x-ray performed in the emergency room, which was officially read as no acute cardiopulmonary process. No significant change since prior imaging. Assessment And Plan: This is a 56-year-old woman who comes in with a recurrent partial small bowel o bstruction. 1.IV fluid hydration. 2.Antibiotic coverage. 3.NG tube decompression. Despite her refusal, I will continue to patient financial counselor her on this. 4.Serial abdominal exams. 5.The patient will require nutritional optimization and I recommend placement of a PICC line and sta rting of TPN for parenteral nutrition to optimize her should she require surgery. 6.Extremity venous study to rule out continuation of her DVT as this has not been confirmed on a rec ent exam and she continues to be maintained blood thinners. 7.Electrolyte correction. 8.Continue medical management. Thank you for this interesting consult. I will follow along with you. The patient is requesting kathleen t we try to transfer her to Dr. Moss who is the surgeon who performed last surgery. We will reac h out to Dr. Moss's office to see if this is a possibility and coordinate from there. BRI/STEPHANIE Voice ID: [id number] Report ID: [id number]
[2017-10-19 16:58] LABS: Magnesium 1.7 mg/dL (1.8-2.5); Potassium 3.4 mEq/L (3.6-5.0)
[2017-10-19] MEDS ORDERED: MAGNESIUM SULFATE 1 gm IVPB 1 GM/100 ML BAG IV ONE (17:30)
[2017-10-19] MEDS: AA 5%/D20W/ELECTROLYTES-TPN 2,000 ML, Lipids 20% 250 ML with MULTIVITAMINS INJ 10 ML IV SCH ×3 (17:37)
--- NOTE | 2017-10-19 19:58 | PN ---
Date of Progress Note: 10/19/2017 Subjective: The patient seen and examined, chart reviewed, and case discussed with RN and Dr. Corea. The patient is feeling better. She is having good output from her colostomy. No pain, nausea, vomiting. Review of Systems: Negative except as above. Medications: Reviewed. Physical Examination: Vital Signs: Temperature 98.1, heart rate 83, blood pressure 87/68, respirations 11, and O2 98% on room air. General: Awake, alert, oriented x3. No acute distress. Appears older than stated age. Ill-appearing female, cachectic. CV: S1, S2. No murmurs. Regular rate and rhythm. Peripheral pulses present. Respiratory: Moving air well bilaterally. No wheezing. Gastrointestinal: Abdomen is soft. Mild distention. Hypoactive bowel sounds. No guarding or rigidity. Colostomy in place with output. Extremities: No clubbing, cyanosis, edema. Neurologic: Nonfocal. Laboratory Data: Sodium 131, potassium 3.1, chloride 106, CO2 20, BUN 31, creatinine 0.93, glucose 198, calcium 6.7, albumin 1.5, and corrected calcium is above 8. Triglycerides 165. WBC 4.6, H and H 8.5, 25.2, and platelets 311. Stool occult positive. Blood cultures, no growth to date. Urine culture shows mixed roseann. Assessment And Plan: A 56-year-old female with; 1. Hypotensive shock. The patient now off Levophed. We will continue with IV fluids secondary to small bowel obstruction and possible infection. 2. Acute blood loss anemia. The patient transfused 1 unit PRBCs and FFP. H and H are stable. Stool occult is positive. GI on board. 3. Acute gastrointestinal bleed. Continue IV PPI. No intervention planned with GI. 4. Severe protein-calorie malnutrition. Albumin is 1.5. Continue TPN. 5. Hypocalcemia. Corrected calcium is greater than 8 due to hypoalbuminemia. 6. Small bowel obstruction secondary to adhesions. The patient having good output from her colostomy bag. The patient has been started on clear liquids by General surgery. Appreciate Dr. Corea's input. 7. Hyponatremia, stable. We will continue to monitor. 8. Hypokalemia, replace and monitor. 9. Thrombocytosis, resolved. 10. History of left lower extremity deep venous thrombosis. Xarelto on hold due to gastrointestinal bleed and anemia. Repeat Doppler does not show any acute deep venous thrombosis at this time. 11. History of cervical cancer, status post radiation. 12. History of partial bowel resection, status post colostomy. 13. Essential hypertension, currently hypotensive, now off pressors. We will continue with IV fluids. 14. Gastrointestinal and deep venous thrombosis prophylaxis with PPI and SCDs. /STEPHANIE Voice ID: [id number] Report ID: [id number] MTDD
[2017-10-20] MEDS: METRONIDAZOLE 500mg IVPB 500 MG/100 ML BAG IV SCH ×3 (01:04→16:35)
[2017-10-20] MEDS: NA CHLORIDE 0.9% 1,000 ML IV SCH ×3 (02:43→14:00)
[2017-10-20 05:48] LABS: Absolute Lymphocytes (CBC) 1.2 K/uL (0.7-4.9); Absolute Monocytes 0.5 K/uL (0.1-1.3); Absolute Neutrophil 3.8 K/uL (1.8-8.0); Basophils % 0.6 % (0-1.3); Eosinophils % 0.7 % (0-4.4); Hematocrit 24.2 % (36.0-45.0); Lymphocytes % 22.1 % (15.3-44.8); MCH 31.4 pg (27.0-35.0); MCV 93.6 fL (80-100); MPV 8.1 fL (7.6-11.3); Monocytes % 9.3 % (3.3-12.3); RBC Red Blood Cell Count 2.59 M/uL (3.86-4.86)
[2017-10-20 06:11] LABS: ALT/SGPT 13 IU/L (10-60); AST/SGOT 15 IU/L (10-42); Albumin 1.4 g/dL (3.2-5.5); Alkaline Phosphatase 122 IU/L (42-121); BUN Blood Urea Nitrogen 18 mg/dL (6-20); Bicarbonate 20 mEq/L (21-31); Bilirubin Total 0.5 mg/dL (0.3-1.2); Glucose Level 104 mg/dL (65-120); Potassium 3.8 mEq/L (3.6-5.0); Protein, Total 3.3 g/dL (6.0-8.3); Sodium Level 134 mEq/L (135-145)
[2017-10-20 07:23] LABS: Magnesium 1.8 mg/dL (1.8-2.5)
--- NOTE | 2017-10-20 08:25 | P.PN ---
Subjective Date of Service: 10/20/17 Chief Complaint: PSBO Subjective: Improving (Patient feels better, large output from ostomy, no longer distended, no nausea, emesis, tolerated clears well.) Physical Examination - Vital Signs Temperature: 98.5 F Blood Pressure: 100/79 Pulse: 79 Respirations: 11 Pulse Ox (%): 98 - Physical Exam General: Alert, Cooperative, Cachectic Respiratory: Clear to auscultation bilaterally Cardiovascular: No edema Gastrointestinal: Soft and benign (ostomy functional), Non-distended, No ascites , No tenderness, No masses, No rebound, No guarding - Studies Microbiology Data (last 24 hrs): 10/17/17 14:05 Catheterized Urine [place] Count - Final <10,000 CFU/ML. 10/17/17 14:05 Catheterized Urine - Final Assessment And Plan - Current Problems (Diagnosis) (1) Small bowel obstruction Onset Date: 10/18/17 Current Visit: Yes Status: Acute Plan: - incentive spirometry - serial exams, but abdomen benign at this time - TPN to continue after discharge - electrolyte correction - ambulate with assist - continue medical management - Patient has stated she will not consent to surgery at this facility and will only consider it with Dr. Curtis whom is her surgeon in [facility]. I have spoken to patient and Dr. moss regarding her wishes and he will be out of town for about 10 days, however if she continues to improve, we have agreed to discharge patient with TPN, and a low residue diet and have her follow up with Dr. Moss to schedule possible surgery at a later date.
[2017-10-20] MEDS: CIPROFLOXACIN 400mg IV 400 MG/200 ML BAG IV SCH ×2 (08:44→20:36)
[2017-10-20] MEDS: PANTOPRAZOLE INJ 80 MG in NA CHLORIDE 0.9% 250 ML IV SCH ×2 (08:44→18:05)
[2017-10-20] MEDS ORDERED: MAGNESIUM SULFATE 1 gm IVPB 1 GM/100 ML BAG IV ONE (09:39)
[2017-10-20] MEDS ORDERED: KCL 20 MEQ/100 mL IVPB 20 MEQ/100 ML BAG IV SCH (10:00)
[2017-10-20] MEDS ORDERED: D50W 25 GM/50 ML SYRINGE IV PRN (11:28)
[2017-10-20] MEDS ORDERED: GLUCAGON 1 MG/VIAL IM PRN (11:28)
[2017-10-20] MEDS: INSULIN -REGULAR HUMAN 50 UNIT/0.5 ML ML SQ SCH ×2 (11:46→17:57)
--- NOTE | 2017-10-20 15:19 | PN ---
Date of Progress Note: 10/20/2017 Subjective: The patient is seen and examined. Chart reviewed and the case discussed with RN and Dr. Corea. The patient is doing significantly better. Able to ambulate without assist. Her Carrillo ca theter is out. No pain, nausea, or vomiting. The patient will be stepped down out of the ICU today. Review of Systems: Negative except as above. Medications: Reviewed. Physical Examination: Vital signs: Temperature 98.5, heart rate 79, blood pressure 100/79, respirations 11, O2 98% on room air. General: Awake, alert, oriented x3, not in any acute distress, appears older than her stated age. C achectic female. BMI 18. CV: S1, S2. No murmurs. Regular rate and rhythm and rhythm. Peripheral pulses present. Respiratory: Moving air well bilaterally. No wheezing. Abdomen: Soft, nontender, nondistended. Positive bowel sounds. Colostomy bag in place. Extremities: No clubbing, cyanosis, or edema. Neurologic: Nonfocal. Laboratory Data: Sodium 134, potassium 3.8, chloride 114, CO2 of 20, BUN 18, creatinine 0.67, glucos e 104, calcium 6.9, magnesium 1.8, albumin 1.4. WBC 5.6, H and H 8.1 and 24.2, platelets 210. Blood cultures no growth to date. Assessment And Plan: A 56-year-old female with: 1.Hypotensive shock, now off Levophed. Blood pressure is stable secondary to small bowel obstructio n infection. 2.Acute blood loss anemia, status post 1 unit PRBCs and FFP. H and H found to be stable. No interv ention from GI at this point. 3.Acute gastrointestinal bleed. Continue PPI. No further bleeding. 4.Severe protein-calorie malnutrition. Albumin is 1.4. We will continue TPN. 5.Hypocalcemia. Corrected calcium is around 8 and secondary to hypoalbuminemia. 6.Small bowel obstruction secondary to adhesions. The patient's small bowel obstruction is improvin g. The patient is tolerating liquid diet. Will be further advanced as tolerated to low residual t. Appreciate Dr. Corea's input, will likely need to be discharged on TPN for 2 weeks and to follo w up with her surgeon, Dr. Moss as an outpatient. 7.Hyponatremia, stable. 8.Hypokalemia, replace and monitor. 9.History of left lower extremity DVT. We will consider restarting Xarelto. 10.History of cervical cancer, status post radiation. 11.History of partial bowel obstruction, status post colostomy. 12.Essential hypertension, currently hypotensive, however, no longer requiring pressors. We will co ntinue with IV fluids. 13.Gastrointestinal and deep venous thrombosis prophylaxis with PPI and SCDs secondary to gastrointe stinal bleed. No chemical anticoagulation at this time. Plan: Continue PT, OT, move out of ICU. Social Work consult for setting up TPN for 2 weeks. Discha rge planning. SA/MODL Voice ID: [id number] Report ID: [id number]
[2017-10-20] MEDS: AA 5%/D20W/ELECTROLYTES-TPN 2,000 ML, Lipids 20% 250 ML with MULTIVITAMINS INJ 10 ML IV SCH ×3 (16:57)
[2017-10-21] MEDS: METRONIDAZOLE 500mg IVPB 500 MG/100 ML BAG IV SCH ×3 (00:23→17:51)
[2017-10-21] MEDS: PANTOPRAZOLE INJ 80 MG in NA CHLORIDE 0.9% 250 ML IV SCH ×2 (03:56→14:01)
[2017-10-21 05:51] LABS: Absolute Lymphocytes (CBC) 1.3 K/uL (0.7-4.9); Absolute Monocytes 0.6 K/uL (0.1-1.3); Absolute Neutrophil 5.2 K/uL (1.8-8.0); Basophils % 0.4 % (0-1.3); Eosinophils % 0.9 % (0-4.4); Hematocrit 23.7 % (36.0-45.0); Lymphocytes % 17.8 % (15.3-44.8); MCV 94.9 fL (80-100); MPV 8.2 fL (7.6-11.3); Monocytes % 8.4 % (3.3-12.3)
[2017-10-21] MEDS: INSULIN -REGULAR HUMAN 50 UNIT/0.5 ML ML SQ SCH ×3 (06:00→12:00)
[2017-10-21 06:14] LABS: ALT/SGPT 10 IU/L (10-60); AST/SGOT 15 IU/L (10-42); Albumin 1.3 g/dL (3.2-5.5); Alkaline Phosphatase 106 IU/L (42-121); BUN Blood Urea Nitrogen 12 mg/dL (6-20); Bilirubin Total 0.3 mg/dL (0.3-1.2); Glucose Level 105 mg/dL (65-120); Magnesium 1.7 mg/dL (1.8-2.5); Protein, Total 3.2 g/dL (6.0-8.3)
[2017-10-21 06:24] LABS: Bicarbonate 19 mEq/L (21-31); Potassium 3.3 mEq/L (3.6-5.0); Sodium Level 134 mEq/L (135-145)
[2017-10-21 06:28] LABS: Blood Morphology Comment NOTED (NOT SEEN); Platelet Estimate ADEQ; Stomatocytes FEW
[2017-10-21] MEDS ORDERED: MAGNESIUM SULFATE 1 gm IVPB 1 GM/100 ML BAG IV ONE (07:30)
[2017-10-21] MEDS ORDERED: Morphine 2 MG/2 ML SYR IV PRN (07:59)
[2017-10-21] MEDS: KCL 20 MEQ/100 mL IVPB 20 MEQ/100 ML BAG IV SCH ×2 (08:30→13:59)
[2017-10-21] MEDS: CIPROFLOXACIN 400mg IV 400 MG/200 ML BAG IV SCH (12:48)
[2017-10-21] MEDS: AA 5%/D20W/ELECTROLYTES-TPN 2,000 ML, Lipids 20% 250 ML with MULTIVITAMINS INJ 10 ML IV SCH ×3 (17:00)
--- NOTE | 2017-10-21 17:42 | PN ---
Date of Progress Note: 10/21/2017 History: The patient seen and examined. Chart reviewed and case discussed with RN and Dr. Corea. The patient states that she does not like the food in the hospital, has not really tried much food. Otherwise, no nausea, vomiting, or abdominal pain. Review of Systems: Negative except as above. Medications: Reviewed. Physical Examination: Vital Signs: Temperature 98, heart rate 100, blood pressure 101/66, respirations 16, O2 97% on room air. General: Awake, alert, oriented x3, not in any acute distress. Appears older than stated age. Cach ectic female. BMI 18. CV: S1, S2. No murmurs. Peripheral pulses present. Respiratory: Moving air well bilaterally. No wheezing. Gastrointestinal: Abdomen is soft. Mild distention. Positive bowel sounds. Colostomy bag in place . No guarding or rigidity. Extremities: No clubbing, cyanosis, edema. Neurologic: Nonfocal. Laboratory Data: Sodium 134, potassium 3.3, chloride 114, CO2 19, BUN 12, creatinine 0.55, glucose 1 05, calcium 7.1, magnesium 1.7, albumin 1.3. WBC 7.2, H and H 7.8, 27.3, platelets 149. Blood cultu res, no growth to date. Assessment: A 56-year-old female with: 1.Hypertensive shock, resolved. 2.Acute blood loss anemia, status post 1 unit PRBCs and FFP. Hemoglobin and hematocrit again droppe d today. Repeat Hemoglobin and hematocrit in the afternoon. Transfuse as needed. 3.Acute gastrointestinal bleed. We will continue PPI. No intervention from GI at this point. 4.Severe protein-calorie malnutrition. Albumin 1.3. We will continue TPN. 5.Hypocalcemia. Corrected calcium is above 8. 6.Small bowel obstruction secondary to adhesions, improved with conservative management. We will co ntinue with TPN for 2 weeks. The patient will need to follow up with her primary surgeon, Dr. Vargas on. 7.Hyponatremia, improving. 8.Hypokalemia. We will replace and monitor. 9.History of lower extremity deep vein thrombosis on the left. The patient Doppler ultrasound is ne gative, has received anticoagulation for 3 months. We will hold off for now due to anemia and gastro intestinal bleed. 10.History of cervical cancer status post radiation. 11.History of partial bowel obstruction, status post colostomy. 12.Essential hypertension, was hypotensive. Blood pressure in the 100s. We will hold blood pressur e medications. 13.Gastrointestinal and deep venous thrombosis prophylaxis with PPI and SCDs. No chemical anticoagu lation due to low hemoglobin and hematocrit and gastrointestinal bleed. Plan: Monitor H and H, transfuse as needed. Social Work is working on getting TPN approved. Danae schreiber planning. /STEPHANIE Voice ID: [id number] Report ID: [id number]
--- NOTE | 2017-10-22 15:43 | DS ---
Date of Discharge: 10/21/2017 Consultants: 1.Dr. Corea with General Surgery. 2.Dr. Barker with GI. Admitting Diagnoses: 1.Small bowel obstruction secondary to adhesions. 2.Severe protein-calorie malnutrition. 3.Acute kidney injury. 4.Hyponatremia. 5.Thrombocytosis. 6.Normocytic normochromic anemia, likely anemia of chronic disease. 7.History of left lower extremity deep venous thrombosis, on Xarelto. 8.History of cervical cancer, status post radiation. 9.History of partial bowel resection, status post colostomy. 10.Essential hypertension. 11.Elevated lactate. Discharge Diagnoses: 1.Small-bowel obstruction, resolved with conservative treatment. 2.Severe protein-calorie malnutrition. Albumin 1.4. The patient will be on TPN for 2 weeks along w ith low residue diet. 3.Acute gastrointestinal bleed, resolved. No intervention from GI. 4.Acute blood loss anemia, status post 1 unit PRBCs and FFP, stable. 5.Hypotensive shock, resolved. 6.Hypocalcemia, corrected. 7.Hyponatremia, improved. 8.Hypokalemia, replaced. 9.History of left lower extremity deep vein thrombosis, repeat Doppler does not show any DVT. The p atient received 3 months of treatment. We will hold Xarelto in the setting of GI bleed and anemia. 10.History of cervical cancer, status post radiation. 11.History of partial bowel obstruction, status post colostomy. 12.Essential hypertension, currently normotensive to hypotensive. Hospital Course: The patient is a 56-year-old female who was admitted to the hospital for small nay l obstruction. She was recently discharged on 10/07/2017 with similar symptoms. The patient's prima ry surgeon is Dr. Moss in the [facility] center. The patient came in for symptoms of nausea. She d id not have any vomiting or abdominal pain. She was admitted to the hospital, treated with prophylac tic IV antibiotics. She was kept n.p.o. and started on TPN. The patient refused NG tube multiple ti mes. She understood the risks. The patient was seen by Dr. Corea with General Surgery. He did no t feel that the patient needed surgery at this time. Conservative management was initiated. The pat ient did improve with conservative management. She had multiple electrolyte abnormalities, which wer e corrected. The patient was also seen by GI for acute GI bleed from her colostomy and she also requ ired some 1 unit of PRBCs and FFP. The patient did become hypotensive requiring pressor support, how ever, was able to be weaned off Levophed and did well and became normotensive. The patient's Xarelto was held due to the GI bleed. Doppler sono was repeated and did not show any lower extremity DVT. The patient has already received 3 months of treatment. She was told by her marble machine operator to be on Xa relto for 6 months at this time due to her risk of recurrent GI bleed and recurrent anemia requiring transfusions. Xarelto will be held as there is no further DVT. The patient can follow up with her c ardiologist for resuming Xarelto once her acute issues have resolved and GI has cleared her to be robert k on blood thinners. The patient is doing well. She was able to ambulate. She was able to tolerate a low residue diet. She did complain of the food not being to her taste. However, she understands that she cannot have fried fatty foods. She used to be on a low residual diet. Extensive counseling was done. She was also counseled to stop smoking. The patient's blood cultures remained negative. She was then cleared for discharge from surgical standpoint. She was discharged home in a stable co ndition. Activity: As tolerated. Medications: As per medication reconciliation list. Followup: Follow up with primary care physician in 2-3 days. Follow up with surgeon Dr. Corea in 1 week and/or follow up with primary surgeon Dr. Moss. Return to ER for worsening condition. Th e patient will have TPN set up at home. She will finish course of antibiotics. Diet: Low residue diet. Medications: As per medication reconciliation list. Total time spent discharging patient was 45 minutes. Physical exam findings, please see progress not e dictated on day of discharge. SA/MODL Voice ID: [id number] Report ID: [id number]
== END 2017-10-21 21:00 | disposition home health service (06) | DRG 388 ==
LOC: ER 12:03 → ERHOLD 16:08 → 3RD-ICU 17:05 → 4TH 10-20 13:10
PROVIDERS: ADMIT Family Medicine; ATTEND Family Medicine
PROC: 02HV33Z Insertion of Infusion Device into Superior Vena Cava, Percutaneous Approach (ICD-10-PCS; principal; 2017-10-17)
DX: K56.50 Intestinal adhesions [bands], unspecified as to partial versus complete obstruction (principal); E43 Unspecified severe protein-calorie malnutrition; R57.8 Other shock; N17.9 Acute kidney failure, unspecified; E87.1 Hypo-osmolality and hyponatremia; D62 Acute posthemorrhagic anemia; E87.6 Hypokalemia; E83.51 Hypocalcemia; D47.3 Essential (hemorrhagic) thrombocythemia; F17.200 Nicotine dependence, unspecified, uncomplicated; I95.89 Other hypotension
CPT/HCPCS: 36415; 51702; 71045; 71250; 74176; 80048; 80053; 80076; 81003; 81015; 82150; 82274; 82550; 82553; 82962; 83605; 83690; 83735; 84100; 84132; 84478; 84484; 85014; 85018; 85025; 85610; 85652; 85730; 86140; 86850; 86900; 86901; 87040; 87086; 87088; 93005; 93970; 94760; 94762; 96360; 96361; 96372; 99285; C9113; J0610; J0744; J3420; J3475; J7030; J7060; P9016; P9059

== ENCOUNTER 2017-10-26 11:55 | Emergency (ER) | payer OTHER ==
--- NOTE | 2017-10-26 13:13 | ER ---
Nurse's Notes [facility] Name: Lyric Barnard Age: 56 yrs Sex: Female : 1960 Arrival Date: 10/26/2017 Time: 11:55 Bed 26 Private MD: Diagnosis: Anemia in chronic diseases classified elsewhere Presentation: 10/26 12:26 Presenting complaint: Patient states: Instructed to come to this facility for blood aj transfusion. Patient reports that her provider Osiris PORRAS was going to call this facility and give report to prodivers. Transition of care: patient was not received from another setting of care. Onset of symptoms was October 26, 2017. Initial Sepsis Screen: Does the patient meet any 2 criteria? No. Patient's initial sepsis screen is negative. Does the patient have a suspected source of infection? No. Patient's initial sepsis screen is negative. Care prior to arrival: None. 12:26 Method Of Arrival: Wheelchair aj 12:26 Acuity: LATIA 3 aj Triage Assessment: 12:29 General: Appears in no apparent distress. comfortable, Behavior is calm, cooperative, aj appropriate for age. Pain: Denies pain. Neuro: Level of Consciousness is awake, alert, obeys commands, Oriented to person, place, time, situation, Appropriate for age. Respiratory: Airway is patent Respiratory effort is even, unlabored, Respiratory pattern is regular, symmetrical. Derm: Skin is intact, is thin, Skin is pale. 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 - Social history:: Smoking status: Patient/guardian denies using tobacco. Screenin:11 Abuse screen: Denies threats or abuse. Denies injuries from another. Nutritional lk1 screening: No deficits noted. Fall Risk Total Gifford Fall Scale indicates High Risk Score (45 or more points). Fall prevention measures have been instituted. Side Rails Up X 2 Placed Close to Nursing Station Frequent Obs/Assessments Occuring Family Present and informed to notify staff if the need to leave the bedside As available patient and family educated on Fall Prevention Program and Strategies. 22:14 Tuberculosis screening: No symptoms or risk factors identified. lk1 Assessment: 12:58 Reassessment: motion picture equipment supervisor made aware of possible patient orders in [facility]. Patricia is aj speaking with patient and attempting to have patient schedule transfusion. 13:11 Reassessment: Patient made appointment for transfusion in [facility], as per provider orders. aj 15:30 General: Appears in no apparent distress. Behavior is calm, cooperative, appropriate lk1 for age. General: Appears. Pain: Denies pain. Neuro: Level of Consciousness is awake, alert, obeys commands, Oriented to person, place, time, situation. Cardiovascular: Capillary refill is brisk Patient's skin is warm and dry. Respiratory: Airway is patent Respiratory effort is even, unlabored, Respiratory pattern is regular, symmetrical. GI: Abdomen is distended, Colostomy site is clean and dry. : No signs and/or symptoms were reported regarding the genitourinary system. EENT: No signs and/or symptoms were reported regarding the EENT system. Derm: Skin is pale. Musculoskeletal: No signs and/or symptoms reported regarding the musculoskeletal system. 17:30 Reassessment: Blood transfusion began. lk1 17:45 Reassessment:. General: Appears in no apparent distress. Pain: Denies pain. lk1 Respiratory: Airway is patent Respiratory effort is even, unlabored, Respiratory pattern is regular, symmetrical. 21:00 Reassessment: Patient and/or family updated on plan of care and expected duration. Pain lk1 level reassessed. Patient is alert, oriented x 3, equal unlabored respirations, skin warm/dry/pink. Patient states feeling better. Patient states symptoms have improved. Vital Signs: 12:29 BP 106 / 81; Pulse 102; Resp 22; Temp 98.3; Pulse Ox 100% on R/A; Weight 54.43 kg; aj Height 5 ft. 6 in. (167.64 cm); Pain 0/10; 14:19 BP 116 / 85; Pulse 85; Resp 19; Pulse Ox 100% on R/A; dm5 15:00 BP 125 / 92; Pulse 83; Resp 18; Pulse Ox 98% on R/A; lk1 15:30 BP 125 / 80; Pulse 86; Resp 18; Pulse Ox 99% on R/A; lk1 16:00 BP 121 / 80; Pulse 81; Resp 15; Pulse Ox 99% on R/A; lk1 16:30 BP 111 / 76; Pulse 77; Resp 15; Pulse Ox 99% on R/A; Pain 0/10; lk1 17:00 BP 124 / 77; Pulse 83; Resp 15; Pulse Ox 99% on R/A; lk1 17:30 BP 126 / 89; Pulse 87; Resp 15; Pulse Ox 98% on R/A; lk1 18:30 BP 134 / 96; Pulse 83; Resp 15; Pulse Ox 99% on R/A; lk1 19:30 BP 136 / 90; Pulse 87; Resp 16; Pulse Ox 99% on R/A; lk1 20:00 BP 131 / 82; Pulse 73; Resp 15; Pulse Ox 99% on R/A; lk1 20:30 BP 128 / 76; Pulse 76; Resp 15; Pulse Ox 100% on R/A; lk1 21:00 BP 128 / 77; Pulse 83; Resp 16; Pulse Ox 98% on R/A; lk1 21:30 BP 126 / 87; Pulse 77; Resp 15; Pulse Ox 99% on R/A; Pain 0/10; lk1 12:29 Body Mass Index 19.37 (54.43 kg, 167.64 cm) aj ED Course: 11:55 Patient arrived in ED. as 12:28 Triage completed. aj 12:29 Arm band placed on left wrist. Patient placed in waiting room, Patient notified of wait aj time. 13:12 Liban Barrera MD is Attending Physician. aj 14:18 Juan Sawyer PA is PHCP. cp 14:18 Liban Barrera MD is Attending Physician. cp 15:04 Jodi Berrios, EARL is Primary Nurse. lk1 15:17 XRAY Chest (1 view) In Process Unspecified. EDMS 15:30 Accessed PICC line. using ,sterile technique, Clean \T\ dry. Dressing intact. Good blood lk1 return. Flushes easily. 15:41 EKG done, by dealer support technician. reviewed by Juan CASIANO. at1 22:12 No provider procedures requiring assistance completed. lk1 22:13 PICC flushed with 20ml NS when finished and saline locked. lk1 22:14 Patient has correct armband on for positive identification. Placed in gown. Bed in low lk1 position. Call light in reach. Adult w/ patient. Administered Medications: No medications were administered Outcome: 13:12 Eloped from waiting room, post triage evaluation and consult. see notes aj 21:58 Discharge ordered by . aminata 22:13 Condition: good lk1 22:13 Discharge instructions given to patient, significant other, Instructed on discharge instructions, follow up and referral plans. safety practices, Demonstrated understanding of instructions, follow-up care. 22:16 Patient left the ED. lk1 Signatures: Dispatcher [employer] EDND Marlena Carter, RN RN dm5 Kierra Tarango, RN RN Gela Madison Amanda, plate conditioner EKG Tat1 Juan Sawyer PA PA Jodi Abel, RN RN lk1 Corrections: (The following items were deleted from the chart) 14:11 13:12 Patient left the ED. nikki gomez
--- NOTE | 2017-10-26 15:24 | RAD REPORT ---
EXAM DESCRIPTION: Melecio Single View10/26/2017 3:17 pm CLINICAL HISTORY: Shortness of breath COMPARISON: October 18 2017 FINDINGS: Small bilateral pleural effusions are present. An area of subsegmental atelectasis is pre sent the left lung base. The remainder lungs appear clear. A PICC line has its tip in the proximal superior vena cava. The heart is normal size IMPRESSION: Small bilateral pleural effusions
[2017-10-26 15:40] LABS: Absolute Lymphocytes (CBC) 1.2 K/uL (0.7-4.9); Absolute Monocytes 0.5 K/uL (0.1-1.3); Absolute Neutrophil 4.6 K/uL (1.8-8.0); Basophils % 1.3 % (0-1.3); Eosinophils % 0.2 % (0-4.4); Hematocrit 21.3 % (36.0-45.0); Lymphocytes % 18.8 % (15.3-44.8); MCH 31.5 pg (27.0-35.0); MCV 96.6 fL (80-100); MPV 7.7 fL (7.6-11.3); Monocytes % 7.3 % (3.3-12.3)
[2017-10-26 15:43] LABS: Protime INR 1.27
[2017-10-26 15:44] LABS: Bicarbonate 23 mEq/L (21-31); Glucose Level 106 mg/dL (65-120); Potassium 3.9 mEq/L (3.6-5.0); Sodium Level 135 mEq/L (135-145)
[2017-10-26 15:50] LABS: ALT/SGPT 13 IU/L (10-60); AST/SGOT 22 IU/L (10-42); Albumin 2.2 g/dL (3.2-5.5); Alkaline Phosphatase 67 IU/L (42-121); BUN Blood Urea Nitrogen 12 mg/dL (6-20); Bilirubin Direct 0.1 mg/dL (0-0.2); Bilirubin Total 0.3 mg/dL (0.3-1.2); Magnesium 1.8 mg/dL (1.8-2.5); Protein, Total 4.9 g/dL (6.0-8.3)
[2017-10-26] MEDS ORDERED: NA CHLORIDE 0.9% 250 ML ONE (17:26)
--- NOTE | 2017-10-26 18:30 | EKG ---
Test Date: 2017-10-26 Test Time: 15:20:43 Boiler Shop Supervisor: SARA MEASUREMENT RESULTS: Intervals: Rate: 85 NE: 108 QRSD: 74 QT: 376 QTc: 447 Hepler: P: 42 NE: 108 QRS: 51 T: 53 INTERPRETIVE STATEMENTS: Sinus rhythm with short NE with premature atrial complexes Otherwise normal ECG Compared to ECG 10/17/2017 13:55:02 Atrial premature complex(es) now present Short NE interval now present ST (T wave) deviation no longer present Electronically Signed On 10-26-17 18:29:38 CDT by Antonio Vences
[2017-10-26 21:41] LABS: Hematocrit 23.9 % (36.0-45.0)
--- NOTE | 2017-10-26 21:59 | EDPHYS ---
Physician Documentation [facility] Name: Lyric Barnard Age: 56 yrs Sex: Female : 1960 Arrival Date: 10/26/2017 Time: 11:55 Bed 26 Private MD: ED Physician Liban Barrera HPI: 10/26 14:45 This 56 yrs old Female presents to ER via Wheelchair with complaints of cp Abnormal Lab Results. 14:45 low hemoglobin. cp 14:45 Onset: The symptoms/episode began/occurred at an unknown time. 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 - Social history:: Smoking status: Patient/guardian denies using tobacco. ROS: 15:00 Constitutional: Negative for body aches, chills, fever, poor PO intake. cp 15:00 Eyes: Negative for injury, pain, redness, and discharge. cp 15:00 ENT: Negative for drainage from ear(s), ear pain, sore throat, difficulty swallowing, cp difficulty handling secretions. 15:00 Cardiovascular: Negative for chest pain, edema, palpitations. 15:00 Respiratory: Negative for cough, wheezing. 15:00 Abdomen/GI: Negative for abdominal pain, nausea, vomiting, and diarrhea, black/tarry stool, rectal bleeding. 15:00 Neuro: Positive for general weakness, Negative for altered mental status, dizziness, headache. 15:00 All other systems are negative. Exam: 15:05 Constitutional: The patient appears in no acute distress, alert, awake, non-toxic, well cp developed, frail. 15:05 Head/Face: Normocephalic, atraumatic. cp 15:05 Eyes: Periorbital structures: appear normal, Pupils: equal, round, and reactive to light and accomodation, Extraocular movements: intact throughout, Conjunctiva: normal, no exudate, no injection, Sclera: no appreciated abnormality, Lids and lashes: appear normal, bilaterally. 15:05 ENT: External ear(s): are unremarkable, Ear canal(s): are normal, clear, TM's: dullness, bilaterally, Nose: is normal, Mouth: Lips: moist, Oral mucosa: moist, Posterior pharynx: is normal, airway is patent, no erythema, no exudate, Voice: is normal. 15:05 Neck: External neck: is normal, ROM/movement: is normal, is supple, without pain, no range of motions limitations, no nuchal rigidity. 15:05 Chest/axilla: Inspection: normal, Palpation: is normal, no crepitus, no tenderness. 15:05 Cardiovascular: Rate: tachycardic, Rhythm: regular, Edema: is not appreciated, JVD: is not appreciated. 15:05 Respiratory: the patient does not display signs of respiratory distress, Respirations: normal, no use of accessory muscles, no retractions, no splinting, no tachypnea, labored breathing, is not present, Breath sounds: are clear throughout, no decreased breath sounds, no stridor, no wheezing. 15:05 Abdomen/GI: Inspection: distension, is not seen, noted colostomy LLQ, Bowel sounds: active, all quadrants, Palpation: abdomen is soft and non-tender, in all quadrants, rebound tenderness, is not appreciated, voluntary guarding, is not appreciated, involuntary guarding, is not appreciated. 15:05 Back: pain, is absent, ROM is normal. 15:05 Skin: cellulitis, is not appreciated, no rash present. 15:05 Neuro: Orientation: to person, place \T\ time. Mentation: lucid, able to follow commands, Motor: moves all fours, general weakness w/o focal deficits, Sensation: no obvious gross deficits. 15:29 ECG was reviewed by the Attending Physician. cp Vital Signs: 12:29 BP 106 / 81; Pulse 102; Resp 22; Temp 98.3; Pulse Ox 100% on R/A; Weight 54.43 kg; aj Height 5 ft. 6 in. (167.64 cm); Pain 0/10; 14:19 BP 116 / 85; Pulse 85; Resp 19; Pulse Ox 100% on R/A; dm5 15:00 BP 125 / 92; Pulse 83; Resp 18; Pulse Ox 98% on R/A; lk1 15:30 BP 125 / 80; Pulse 86; Resp 18; Pulse Ox 99% on R/A; lk1 16:00 BP 121 / 80; Pulse 81; Resp 15; Pulse Ox 99% on R/A; lk1 16:30 BP 111 / 76; Pulse 77; Resp 15; Pulse Ox 99% on R/A; Pain 0/10; lk1 17:00 BP 124 / 77; Pulse 83; Resp 15; Pulse Ox 99% on R/A; lk1 17:30 BP 126 / 89; Pulse 87; Resp 15; Pulse Ox 98% on R/A; lk1 18:30 BP 134 / 96; Pulse 83; Resp 15; Pulse Ox 99% on R/A; lk1 19:30 BP 136 / 90; Pulse 87; Resp 16; Pulse Ox 99% on R/A; lk1 20:00 BP 131 / 82; Pulse 73; Resp 15; Pulse Ox 99% on R/A; lk1 20:30 BP 128 / 76; Pulse 76; Resp 15; Pulse Ox 100% on R/A; lk1 21:00 BP 128 / 77; Pulse 83; Resp 16; Pulse Ox 98% on R/A; lk1 21:30 BP 126 / 87; Pulse 77; Resp 15; Pulse Ox 99% on R/A; Pain 0/10; lk1 12:29 Body Mass Index 19.37 (54.43 kg, 167.64 cm) aj MDM: 14:18 Patient medically screened. cp 21:56 Data reviewed: vital signs, nurses notes, lab test result(s), EKG, radiologic studies, cp plain films. 21:56 Differential Diagnosis chronic anemia, GI bleed. Test interpretation: by ED physician cp or midlevel provider: ECG, plain radiologic studies. Counseling: I had a detailed discussion with the patient and/or guardian regarding: the historical points, exam findings, and any diagnostic results supporting the discharge/admit diagnosis, lab results, radiology results, the need for outpatient follow up, a family practitioner, to return to the emergency department if symptoms worsen or persist or if there are any questions or concerns that arise at home. Response to treatment: the patient's symptoms have markedly improved after treatment, and as a result, I will discharge patient. 10/26 14:55 Order name: Basic Metabolic Panel; Complete Time: 16:06 cp 10/26 16:06 Interpretation: Normal except: CA 7.9. cp 10/26 14:55 Order name: CBC with Diff; Complete Time: 16:06 cp 10/26 16:06 Interpretation: Normal except: RBC 2.20; HGB 6.9; HCT 21.3; PLT 631. cp 10/26 14:55 Order name: LFT's; Complete Time: 16:06 cp 10/26 14:55 Order name: Magnesium; Complete Time: 16:06 cp 10/26 14:55 Order name: PT-INR; Complete Time: 16:06 cp 10/26 14:55 Order name: Ptt, Activated; Complete Time: 16:06 cp 10/26 14:55 Order name: XRAY Chest (1 view); Complete Time: 16:06 cp 10/26 14:55 Order name: EKG; Complete Time: 14:56 cp 10/26 14:55 Order name: Type And Screen 10/26 15:50 Order name: Bb Add On mw2 10/26 15:52 Order name: Packed RBC Leukored -1 EDNV 10/26 16:56 Order name: Diet Regular; Complete Time: 16:57 bd 10/26 21:06 Order name: Hemoglobin: redraw \T\2130; Complete Time: 21:56 cp 10/26 21:06 Order name: Hematocrit: redraw \T\2130; Complete Time: 21:56 cp 10/26 14:55 Order name: Cardiac monitoring; Complete Time: 15:34 cp 10/26 14:55 Order name: EKG - Nurse/Tech; Complete Time: 15:34 cp 10/26 14:55 Order name: IV Saline Lock; Complete Time: 15:34 cp 10/26 14:55 Order name: Labs collected and sent; Complete Time: 15:34 cp 10/26 14:55 Order name: O2 Per Protocol; Complete Time: 15:34 cp 10/26 14:55 Order name: O2 Sat Monitoring; Complete Time: 15:34 cp 10/26 16:07 Order name: Transfuse; Complete Time: 17:53 cp 10/26 17:44 Order name: Diet Full Liquid: soup please other than tomato; Complete Time: 17:44 bd EC:29 Rate is 85 beats/min. Rhythm is regular. NC interval is shortened at 108 msec. QRS cp interval is normal. QT interval is normal. T waves are Normal. No ST changes noted. Interpreted by me. Reviewed by me. Administered Medications: No medications were administered Disposition: 10/26/17 21:58 Discharged to Home. Impression: Anemia in chronic diseases classified elsewhere. - Condition is Stable. - Discharge Instructions: Anemia, Nonspecific. - Medication Reconciliation Form, Thank You Letter, Antibiotic Education, Prescription Opioid Use form. - Follow up: Private Physician; When: 1 - 2 days; Reason: Recheck today's complaints. - Problem is new. - Symptoms have improved. Addendum: 10/29/2017 19:01 Co-signature as Attending Physician, Liban Barrera MD. r n Signatures: Dispatcher [employer] EDKierra Campuzano RN RN Liban Levy MD MD rn Juan Sawyer PA PA cp Kluge, Leah RN RN lk1 Corrections: (The following items were deleted from the chart) 10/26 22:08 14:55 Urine Dipstick-Ancillary ordered. aminata lk1
== END 2017-10-26 22:16 | disposition home or self-care (01) ==
LOC: ER 11:55
PROC: 30233N1 Transfusion of Nonautologous Red Blood Cells into Peripheral Vein, Percutaneous Approach (ICD-10-PCS; principal; 2017-10-26)
DX: D63.8 Anemia in other chronic diseases classified elsewhere (principal)
CPT/HCPCS: 36415; 71045; 80048; 80076; 83735; 85014; 85018; 85025; 85610; 85730; 86850; 86900; 86901; 93005; 99284; P9016

== ENCOUNTER 2018-01-10 12:16 | Emergency (ER) | payer OTHER ==
--- OUTSIDE RECORDS SUMMARY | 2018-01-10 12:18 | XMS REPORT | Clinical Summary ---
:1960 Author Organization [facility] Address [address] [place] [address] Phone Care Team Providers Name Role Phone Unavailable Primary Care Provider Unavailable Allergies No Known Allergies Current Medications Prescription Sig. Disp. Refills Start Date End Date Status rivaroxaban (XARELTO) 15 Xarelto 15 mg Active mg Tab tablet tablet ferrous sulfate 325 (65 ferrous sulfate 325 Active FE) MG tablet mg (65 mg iron) tablet cholecalciferol, vitamin Take by mouth Active D3, (VITAMIN D3 ORAL) daily. Active Problems No known active problems Encounters Date Type Specialty Care Team Description 01/09/2018 Office Visit Internal Medicine Emmanuel Murillo Underweight ( Primary MD Levon Dx);On total parenteral nutrition (TPN) after 01/09/2017 Family History Medical History Relation Name Comments HIV Brother No Known Problem Daughter Cancer Father Diabetes Father Hypertension Mother No Known Problem Sister Cancer Sister No Known Problem Son Relation Name Status Comments Brother (Age 38) Daughter Alive Father (Age 75) Mother Alive Sister Alive Sister (Age 40) Son Alive Social History Tobacco Use Types Packs/Day Years Used Date Current Every Day Smoker Smokeless Tobacco: Never Used Alcohol Use Drinks/Week oz/Week Comments No Sex Assigned at Date Recorded Not on file Last Filed Vital Signs Vital Sign Reading Time Taken Blood Pressure 108/61 01/09/2018 2:58 PM CDT Pulse 95 01/09/2018 2:58 PM CDT Temperature 36.4 C (97.6 F) 01/09/2018 2:58 PM CDT Respiratory Rate 16 01/09/2018 2:58 PM CDT Oxygen Saturation 100% 01/09/2018 2:58 PM CDT Inhaled Oxygen Concentration - - Weight 48.5 kg (106 lb 14.4 oz) 01/09/2018 2:58 PM CDT Height 165.1 cm (5' 5") 01/09/2018 2:58 PM CDT Body Mass Index 17.79 01/09/2018 2:58 PM CDT Plan of Treatment Health Maintenance Due Date Last Done Comments INFLUENZA VACCINE 04/03/2018 Results Not on fileafter 01/09/2017
--- OUTSIDE RECORDS SUMMARY | 2018-01-10 12:20 | XMS REPORT | Continuity of Care Document ---
:1960 Author Organization Interface Problems Problem Status Onset Classification Date Comments Source Date Reported Acute embolism and 10/01/19 12/30/2017 [facility] thrombosis of 18 Medical unspecified deep Center veins of left lower extremity 3 MONTH F/U Active 09/24/19 [facility] 18 [facility] NEW PT/BLOOD Active 08/24/19 [facility] CLOTS/DR. AGUAYO 18 [facility] Discharge 07/05/19 07/08/2017 [place] Diagnosis: Acute 18 [place] deep vein thrombosis of popliteal vein of left lower extremity Discharge 05/15/20 05/18/2017 [place] Diagnosis: 17 [place] Hypomagnesemia Discharge 05/15/20 05/18/2017 [place] Diagnosis: 17 [place] Hypokalemia Hypokalemia<sup>7</ Active 07/11/19 Problem 12/30/2017 [facility] [place] sup> 15 migrated Medical from [facility] [place] on 11/30/14. [place] Hypomagnesemia<sup> Active 07/11/19 Problem 12/30/2017 [facility] [place] 8</sup> 15 migrated Medical from [facility] [place] on 11/30/14. [place] HYPOKALEMIA Active 07/11/19 Condition 10/08/2014 15 [facility] Group HYPOMAGNESEMIA Active 07/11/19 Condition 10/08/2014 15 [facility] Group HYPOKALEMIA/HYPOMAG Active 06/20/20 [place] NESEMIA 14 [facility] HANDS CRAMPED UP Active 06/20/20 [place] 14 [place] Depressive Active 12/22/19 Problem 12/30/2017 [facility] [place] disorder<sup>4</sup 13 migrated Medical > from [facility] [place] on 11/30/14. [place] DEPRESSION Active 12/22/19 Condition 10/08/2014 13 [facility] Group Weight Active 08/25/19 Problem 12/30/2017 [facility] [place] decreased<sup>11</s 13 migrated Medical up> from [facility] [place] on 5/30/15. [place] ABDOMINAL PAIN, Inactive 08/25/19 Condition 10/08/2014 EPIGASTRIC 13 Medical Group LOSS OF WEIGHT Active 08/25/19 Condition 10/08/2014 13 [facility] Group Long-term drug Active 08/09/19 Problem 12/30/2017 [facility] [place] therapy<sup>9</sup> 13 migrated Medical from [facility] [place] on 11/30/14. [place] LONG-TERM USE OF Active 08/09/19 Condition 10/08/2014 OTHER MEDICATIONS 13 Medical Group Abdominal Active 04/10/20 Problem 12/30/2017 [facility] [place] pain<sup>1</sup> 12 migrated Medical from [facility] [place] on 11/30/14. [place] ABDOMINAL PAIN, Active 04/10/20 Condition 10/08/2014 UNSPECIFIED SITE 12 Medical Group Altered bowel Active 04/07/20 Problem 12/30/2017 Data [facility] function<sup>2</sup 12 migrated Medical > from [facility] [place] on 11/30/14. Land Diarrhea<sup>5</sup Active 04/07/20 Problem 12/30/2017 [facility] [place] > 12 migrated Medical from [facility] [place] on 11/30/14. [place] Finding of Active 04/07/20 Problem 12/30/2017 Data [facility] gastrointestinal 12 migrated Medical tract from [facility], gas<sup>6</sup> [facility] [place] on 11/30/14. [place] Nausea and Active 04/07/20 Problem 12/30/2017 Data [facility] vomiting<sup>10</[place] 12 migrated Medical p> from [facility] [place] on 11/30/14. 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 [place] Cervical cancer Resolved Problem 12/30/2017 [facility] [place] Deep vein Active Problem 12/30/2017 [facility] thrombosis [facility] DVT of popliteal Active Problem 12/30/2017 [facility] vein [facility] Hx of cervical Active Problem 12/30/2017 [facility] cancer [facility] Hypertension Active Problem 12/30/2017 [facility] Unintended weight Active Problem 12/30/[address] [facility] HTN Active Condition 10/08/2014 Medical Group Medications Medication Details Route Status Patient Ordering Order Source Instructions Provider Date mirtazapine 15 mg 15 mg=1 tab, PO, No Longer 09/23/ [facility] oral tablet Bedtime, # 30 Active 2018 Medical tab, 0 Refill(s) [place] Vitamin D3 2000 2,000 IntlUnit=1 No Longer 09/23/ [facility] intl units oral tab, PO, Daily, Active 2017 Medical tablet 0 Refill(s) [place] Acetaminophen 300 1 - 2 tab, PO, Active 07/[facility] [place] MG / Codeine Q6H, PRN Pain, 2018 [place] Phosphate 30 MG not to exceed Oral Tablet 4000 mg [Tylenol with acetaminophen Codeine #3] per day, X 3 day, # 20 tab, 0 Refill(s) tramadol 50 mg=1 tab, PO, Inactive 07/06[facility] [place] hydrochloride 50 Q6H, PRN Pain, X 2018 [place] MG Oral Tablet 5 day, # 20 tab, 0 Refill(s) rivaroxaban 20 mg 20 mg=1 tab, PO, Active 07/06[facility] [place] oral tablet QPM, Beginning 2018 [place] day 22,take one 20 mg tablet daily with food for the remainder of therapy., # 9 tab, 0 Refill(s) rivaroxaban 15 MG 15 mg=1 tab, PO, Active 07/06[facility] [place] Oral Tablet Q12H, Take 15 mg 2018 [place] [Xarelto] tablets twice daily with food for 21 days. 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, Stop date: 07/05/17 18:28:00 SENIOR ART DIRECTOR Magnesium Sulfate 2 gm, 50 mL, Inactive [place] Route: IV, Drug 2016 [place] form: INJ, ONCE, Dosing Weight 52.045, kg, Priority: STAT, Start date: 05/15/17 21:59:00 SENIOR ART DIRECTOR, Stop date: 05/15/17 21:59:00 CSTNotes: WASTE: F/P - Sink; E - Municipal Trash Bin potassium 20 mEq, 1 tab, Inactive [place] chloride 20 mEq Route: PO, Drug 2016 [place] oral tablet, form: ERTAB, extended release ONCE, Dosing Weight 52.045, kg, Priority: STAT, Start date: 05/15/17 21:59:00 SENIOR ART DIRECTOR, Stop date: 05/15/17 21:59:00 CSTNotes: (Same as: K-Dur 20) "Do Not Crush" With food and full glass of water Saline Flush 0.9% 10 mL, Route: Inactive [place] IVP, Drug Form: 2016 [place] INJ, Dosing Weight 52.045, kg, PRN, PRN Line Flush, Start date: 05/15/17 20:38:00 SENIOR ART DIRECTOR, Duration: 30 day, Stop date: 06/14/17 20:37:00 CSTNotes: (Same as: BD Posiflush) POTASSIUM three tablets a Active CHLORIDE ER 10 day for next 4 2014 Medical MEQ CR-CAPS days then adjust Group if able Calcium 600 +D 1 tab, PO, TID, Active [place] oral tablet # 90 tab, 0 2013 [place] Refill(s) Potassium 20 mEq=15 mL, Active [place] Chloride 1.33 PO, BID, # 65 2013 [place] MEQ/ML Oral mL, 0 Refill(s) Solution Potassium 20 mEq=1 tab, Inactive [place] Chloride 20 MEQ PO, BID, # 4 2013 [place] Extended Release tab, 0 Refill(s) Tablet magnesium oxide 500 mg=1 tab, Active [place] 500 mg oral PO, Daily, # 30 2013 [facility] tablet tab, 0 Refill(s) calcium gluconate 1,000 mg, Route: Inactive [place] + Sodium Chloride IV, Drug form: 2013 [facility] 0.9% IV 100 mL INJ, ONCE, Start date: 06/20/14 19:00:00, Stop date: 06/20/14 19:00:00 Potassium 20 mEq, 100 mL, Inactive [place] Chloride Route: IVPB2013 [facility] Drug form: INJ, Q2H, Dosing Weight 51.818, kg, Total dose=60 mEq, Start date: 06/20/14 18:00:00, Duration: 3 doses or times, Stop date: 06/20/14 22:00:00Notes: (Same as: KCL) Infuse no faster than 10 mEq/hr if given peripherally. Potassium 40 mEq, 30 mL, Inactive [place] Chloride Route: PO, Drug 2013 [place] form: LIQ, ONCE, Dosing Weight 51.818, kg, Priority: STAT, Start date: 06/20/14 17:39:00, Stop date: 06/20/14 17:39:00Notes: (Same as: Potassium Chloride) Calcium Chloride 1,000 mg, 10 mL, Inactive [place] Route: IVPB2013 [facility] Drug form: INJ, ONCE, Dosing Weight 51.818, kg, Start date: 06/20/14 17:21:00, Stop date: 06/20/14 17:21:00 Potassium 40 mEq, 2 tab, No Longer [place] Chloride Route: PO, Drug Active 2013 [place] form: ERTAB, PRN, Dosing Weight 51.818, kg, PRN Other -See Comment, Electrolyte replacement, Start date: 06/20/14 17:21:00, Duration: 30 day, Stop date: 07/20/14 17:20:00, noneNotes: (Same as: K-Dur 20) "Do Not Crush" With food and full glass of water Magnesium Sulfate 2 gm, 50 mL, Inactive [place] Route: IVPB2013 [facility] Drug form: INJ, ONCE, Dosing Weight 51.818, kg, Start date: 06/20/14 12:00:00, Duration: 2 hr, Stop date: 06/20/14 12:00:00 Morphine 2 mg, 1 mL, No Longer [place] Route: IVP, Drug Active 2013 [place] form: INJ, Q3H, Dosing Weight 51.818, kg, PRN Pain Score 4-6, Start date: 06/20/14 10:23:00, Duration: 30 day, Stop date: 07/20/14 10:22:00Notes: (Same as:MORPhine Sulfate) Ondansetron 4 mg, 2 mL, No Longer [place] Route: IVP, Drug Active 2013 [place] form: INJ, Q8H, Dosing Weight 51.818, kg, PRN Nausea & Vomiting, Start date: 06/20/14 10:23:00, Duration: 30 day, Stop date: 07/20/14 10:22:00Notes: (Same as: Zofran) Diphenhydramine 25 mg, 1 tab, No Longer [place] Route: PO, Drug Active 2013 [place] form: TAB, Q6H, Dosing Weight 51.818, kg, PRN Itching, Start date: 06/20/14 8:59:00, Duration: 30 day, Stop date: 07/20/14 8:58:00 Temazepam 15 mg, 1 cap, No Longer [place] Route: PO, Drug Active 2013 [place] form: CAP, Bedtime, Dosing Weight 51.818, kg, PRN Insomnia, Start date: 06/20/14 8:59:00, Duration: 30 day, Stop date: 07/20/14 8:58:00Notes: (Same As: Restoril) Alprazolam 0.25 mg, 1 tab, No Longer [place] Route: PO, Drug Active 2013 [place] form: TAB, Q8H, Dosing Weight 51.818, kg, PRN Anxiety, Start date: 06/20/14 8:59:00, Duration: 30 day, Stop date: 07/20/14 8:58:00Notes: With food or milk (Same as: Xanax) Acetaminophen 650 mg, 2 tab, No Longer [place] Route: PO, Drug Active 2013 [place] form: TAB, Q4H, Dosing Weight 51.818, kg, PRN Pain 1-3/Temp > 100.4 F, Start date: 06/20/14 8:59:00, Duration: 30 day, Stop date: 07/20/14 8:58:00Notes: Do not exceed 4 gm/day. (Same as: Tylenol) Ibuprofen 200 mg, 1 tab, No Longer [place] Route: PO, Drug Active 2013 [place] form: TAB, Q6H, Dosing Weight 51.818, kg, PRN Pain 1-3/Temp > 100.4 F, Start date: 06/20/14 8:59:00, Duration: 30 day, Stop date: 07/20/14 8:58:00Notes: (Same as: Advil) Give with food. Morphine 2 mg, 1 mL, No Longer [place] Route: IVP, Drug Active 2013 [place] form: INJ, Q4H, Dosing Weight 51.818, kg, PRN Pain Score 4-6, Start date: 06/20/14 8:59:00, Duration: 30 day, Stop date: 07/20/14 8:58:00Notes: (Same as:MORPhine Sulfate) Zofran 4 mg, 2 mL, Inactive [place] Route: IVP, Drug 2013 [place] form: INJ, ONCE, Dosing Weight 51.818, kg, Priority: STAT, Start date: 06/20/14 8:27:00, Stop date: 06/20/14 8:27:00Notes: (Same as: Zofran) Morphine 4 mg, 2 mL, Inactive [place] Route: IVP, Drug 2013 [place] form: INJ, ONCE, Dosing Weight 51.818, kg, Priority: STAT, Start date: 06/20/14 8:27:00, Stop date: 06/20/14 8:27:00Notes: (Same as:MORPhine Sulfate) Potassium 40 mEq, 2 tab, Inactive [place] Chloride Route: PO, Drug 2013 [place] form: ERTAB, ONCE, Dosing Weight 51.818, kg, Priority: STAT, Start date: 06/20/14 7:46:00, Stop date: 06/20/14 7:46:00Notes: (Same as: K-Dur 20) "Do Not Crush" With food and full glass of water Magnesium Sulfate 2 gm, 50 mL, Inactive [place] Route: IVPB, 2013 [place] Drug form: INJ, ONCE, Dosing Weight 51.818, kg, Start date: 06/20/14 7:46:00, Duration: 2 hr, Stop date: 06/20/14 7:46:00 Ketorolac 30 mg, 1 mL, Inactive [place] Route: IVP, Drug 2013 [place] form: INJ, ONCE, Dosing Weight 51.818, kg, Priority: STAT, Start date: 06/20/14 7:26:00, Stop date: 06/20/14 7:26:00Notes: (Same as:Toradol) IV bolus must be given >15 seconds. Give IM administration slowly and deeply into the muscle. Not for use > 4 days Orphenadrine 60 mg, 2 mL, Inactive [place] Route: IVP, Drug 2013 [place] form: INJ, ONCE, Dosing Weight 51.818, kg, Priority: STAT, Start date: 06/20/14 6:40:00, Stop date: 06/20/14 6:40:00 HYDROCODONE-ACETA one tablet three No Longer MINOPHEN 5-500 MG times a day Active 2013 Medical TABS Group LEXAPRO 10 MG one a day No Longer TABS Active 2012 Medical Group TRAMADOL 50MG PRN No Longer Active 2012 Medical Group PROMATHAZINE 25MG No Longer PRM Active 2012 Medical Group OMEPRAZOLE 20 MG 1 pill daily. No Longer CPDR Active 2012 Medical Group SUCRALFATE 1 GM 1 pill 30 No Longer TABS minutes before Active 2013 Medical each meal and at Group bedtime. OMEPRAZOLE 20 MG 1 pill daily. No Longer CPDR Active 2012 Medical Group TRAMADOL HCL 50 1 tab po qid prn No Longer MG TABS pain Active 2011 Medical Group PROMETHAZINE HCL 1 tab po q6hr No Longer 25 MG TABS prn N/V Active 2011 Medical Group TRAMADOL HCL 50 1 tab po qid prn No Longer MG TABS pain Active 2011 Medical Group DICYCLOMINE HCL 1 pill 4 times a No Longer 10 MG CAPS day as needed Active 2011 Medical for abd Group cramping. ALIGN 4 MG CAPS 1 pill daily. No Longer Active 2011 Medical Group LISINOPRIL-HYDROC 1 tab po daily No Longer HLOROTHIAZIDE Active 2011 Medical 20-12.5 MG TABS Group DICYCLOMINE HCL 1 pill 4 times a No Longer 10 MG CAPS day as needed Active 2011 Medical for abd Group cramping. Allergies, Adverse Reactions, Alerts Substance Category Reaction Severity Reaction Status Date Comments Source type Reported NKDA Assertion Drug Active [facility] Immunizations Immunization Date Given Site Status Last Updated Comments Source Results Order Name Results Value Reference Date Interpretation Comments Source Range URINE AND UA WBC 2 /HPF 0 - 5 05/16 [place] URINE AND UA RBC 4 /HPF 0 - 2 05/16 [place] URINE AND UA Leuk Est Trace Negative 05/16 [place] *ABN* (05/15/17 9:15 PM) URINE AND UA Sq Epi Occasional Few /LPF 05/16 [place] STOOL /LPF [place] URINE AND UA Mucus Few /LPF None Seen 05/16 [place] STOOL /LPF [place] URINE AND UA Hyal Cast 42 /LPF 0 - 2 05/16 [place] URINE AND UA Turbidity Slight Clear 05/16 [place] *ABN* (05/15/17 9:15 PM) URINE AND UA Protein Negative Negative 05/16 [place] STOOL mg/dL mg/dL [place] URINE AND UA Glucose Negative Negative 05/16 [place] mg/dL mg/dL [place] URINE AND UA Spec Grav 1.026 <=1.030 05/16 [place] URINE AND UA pH 5.0 5.0 - 8.0 05/16 [place] URINE AND UA Ketones 20 mg/dL Negative 05/16 [place] STOOL mg/dL [place] URINE AND UA Bili Small Negative 05/16 [place] *ABN* (05/15/17 9:15 PM) URINE AND UA Nitrite Negative Negative 05/16 [place] STOOL [place] (05/15/17 9:15 PM) URINE AND UA Blood Negative Negative 05/16 [place] STOOL [place] (05/15/17 9:15 PM) URINE AND UA 2.0 mg/dL 0.1 - 1.0 05/16 [place] STOOL Urobilinogen [facility] URINE AND UA [place] Yellow 05/16 [place] STOOL [place] *ABN* (05/15/17 9:15 PM) CHEM PANEL Phosphorus 4.5 mg/dL 2.5 - 4.5 05/16 [place] CHEM PANEL Magnesium Lvl 1.1 mg/dL 1.8 - 2.4 05/16 [place] CHEM PANEL eGFR 89 05/16 Result Comment: The eGFR is calculated using the CKD-EPI formula. In most young, healthy individuals the eGFR will be >90 mL/ min/1.73m2. The eGFR declines with age. An eGFR of 60-89 may be normal in mL/min/1.7 some populations, particularly the elderly, for whom the CKD-EPI formula has not been extensively validated. Use of the eGFR is not recommended in the following populations: [place] 3m2 Individuals with unstable creatinine concentrations, including patients and those with serious co-morbid conditions. Patients with extremes in muscle mass or diet. The data above are obtained from the National Kidney Disease Education Program (NKDEP) which additionally recommends that when the eGFR is used in patients with extremes of body mass index for purposes of drug dosing, the eGFR should be multiplied by the estimated BMI. CHEM PANEL AST 23 unit/L 0 - 37 05/16 [place] CHEM PANEL Alk Phos 139 unit/L 39 - 136 05/16 [place] CHEM PANEL Albumin Lvl 3.1 g/dL 3.5 - 5.0 05/16 [facility] CHEM PANEL ALT 25 unit/L 0 - 65 05/16 [place] CHEM PANEL Bili Total 0.6 mg/dL 0.2 - 1.3 05/16 [place] CHEM PANEL Calcium Lvl 7.1 mg/dL 8.5 - 10.5 05/16 [place] CHEM PANEL Total Protein 6.5 g/dL 6.4 - 8.4 05/16 [place] CHEM PANEL Chloride Lvl 102 meq/L 95 - 109 05/16 [place] CHEM PANEL CO2 29 meq/L 24 - 32 05/16 [place] CHEM PANEL Potassium Lvl 3.3 meq/L 3.5 - 5.1 05/16 [place] CHEM PANEL Sodium Lvl 143 meq/L 135 - 145 05/16 [place] CHEM PANEL Creatinine 0.76 mg/dL 0.50 - 05/16 [place] Lvl 1.40 /2016 [place] CHEM PANEL Glucose Lvl 93 mg/dL 70 - 99 05/16 [place] CHEM PANEL BUN 27 mg/dL 7 - 22 05/16 [place] CHEM PANEL AGAP 15.3 meq/L 10.0 - 05/16 [place] 20.0 [place] CHEM PANEL B/C Ratio 36 6 - 25 05/16 [place] CHEM PANEL Globulin 3.4 g/dL 2.7 - 4.2 05/16 [place] CHEM PANEL A/G Ratio 0.9 0.7 - 1.6 05/16 [place] HEMATOLOGY Basophils # 0.0 K/CMM 0.0 - 0.2 05/16 [place] HEMATOLOGY Monocytes # 0.7 K/CMM 0.0 - 0.8 05/16 [place] HEMATOLOGY Eosinophils # 0.0 K/CMM 0.0 - 0.5 05/16 [place] HEMATOLOGY Lymphocytes # 1.2 K/CMM 1.0 - 5.5 05/16 [place] HEMATOLOGY Basophils 0.3 % 0.0 - 1.0 05/16 [place] HEMATOLOGY Segs-Bands # 5.8 K/CMM 1.5 - 8.1 05/16 [place] HEMATOLOGY Monocytes 8.4 % 2.0 - 12.0 05/16 [place] HEMATOLOGY Eosinophils 0.5 % 0.0 - 4.0 05/16 [place] HEMATOLOGY Lymphocytes 16.0 % 20.0 - 05/16 [place] 40.0 [place] HEMATOLOGY Segs 74.8 % 45.0 - 05/16 [place] 75.0 2017 [place] HEMATOLOGY MCHC 32.9 g/dL 32.0 - 05/16 [place] 36.0 2017 [place] HEMATOLOGY RDW 15.3 % 11.5 - 05/16 [place] 14.5 /2017 [facility] HEMATOLOGY Platelet 345 K/CMM 133 - 450 05/16 [facility] HEMATOLOGY MPV 7.6 fL 7.4 - 10.4 05/16 [facility] HEMATOLOGY MCV 96.8 fL 80.0 - 05/16 [place] 98.0 [facility] HEMATOLOGY MCH 31.9 pg 27.0 - 05/16 [place] 31.0 [facility] HEMATOLOGY Hct 35.3 % 36.0 - 05/16 [place] 48.0 [facility] HEMATOLOGY RBC 3.64 M/CMM 4.20 - 05/16 [place] 5.40 [facility] HEMATOLOGY Hgb 11.6 g/dL 12.0 - 05/16 [place] 16.0 [facility] HEMATOLOGY WBC 7.8 K/CMM 3.7 - 10.4 05/16 [facility] Chemistry POTASSIUM 2.8 mmol/L 3.3 - 5.0 10/08 [facility] Group Chemistry MAGNESIUM 1.1 mg/dL 1.9 - 2.5 10/08 Medical Group Chemistry POTASSIUM 4.1 mmol/L 3.3 - 5.0 07/30 [facility] Group Chemistry MAGNESIUM 1.9 mg/dL 1.9 - 2.5 07/30 [facility] Group Chemistry SODIUM 142 mmol/L 136 - 142 07/11 [facility] Group Chemistry POTASSIUM 2.8 mmol/L 3.3 - 5.0 07/11 Medical Group Chemistry BUN 14 mg/dL 8 - 20 07/11 [facility] Group Chemistry CREATININE 0.63 mg/dL 0.46 - 07/11 . Medical Group Chemistry CALCIUM 8.0 mg/dL 8.8 - 10.0 07/11 Medical Group Chemistry MAGNESIUM 1.1 mg/dL 1.9 - 2.5 07/11 Medical Group CHEM PANEL eGFR 106 06/21 3Result Comment: The eGFR is calculated using the CKD-EPI formula. In most young, healthy individuals the eGFR will be > 90 mL/min/1.73m2. The eGFR declines with age. An eGFR of 60-89 may be normal in mL/min/1.7 some populations, particularly the elderly, for whom the CKD-EPI formula has not been extensively validated. Use of the eGFR is not recommended in the following populations: [place] 3m2 Individuals with unstable creatinine concentrations, including patients and those with serious co-morbid conditions. Patients with extremes in muscle mass or diet. The data above are obtained from the National Kidney Disease Education Program (NKDEP) which additionally recommends that when the eGFR is used in patients with extremes of body mass index for purposes of drug dosing, the eGFR should be multiplied by the estimated BMI. CHEM PANEL Sodium Lvl 144 meq/L 135 - 145 06/21 [place] CHEM PANEL Chloride Lvl 107 meq/L 95 - 109 06/21 [place] CHEM PANEL Potassium Lvl 3.6 meq/L 3.5 - 5.1 06/21 [place] CHEM PANEL AGAP 10.6 meq/L 10.0 - 06/21 [place] 20.0 [place] CHEM PANEL CO2 30 meq/L 24 - 32 06/21 [place] CHEM PANEL Glucose Lvl 91 mg/dL 70 - 99 06/21 6Interpretive Data: Adult reference range values reflect the clinical guidelines of the [place] [employer]. [place] CHEM PANEL Creatinine 0.6 mg/dL 0.5 - 1.4 06/21 [facility] [place] Lvl /2013 [place] CHEM PANEL BUN 12 mg/dL 7 - 22 06/21 [place] CHEM PANEL Calcium Lvl 7.3 mg/dL 8.5 - 10.5 06/21 [place] CHEM PANEL Magnesium Lvl 1.9 mg/dL 1.8 - 2.4 06/21 [place] HEMATOLOGY Basophils 0.4 % 0.0 - 1.0 06/21 [place] HEMATOLOGY Segs-Bands # 3.4 K/CMM 1.5 - 8.1 06/21 [place] HEMATOLOGY Lymphocytes # 1.2 K/CMM 1.0 - 5.5 06/21 [place] HEMATOLOGY Monocytes # 0.3 K/CMM 0.0 - 0.8 06/21 [place] HEMATOLOGY Basophils # 0.0 K/CMM 0.0 - 0.2 06/21 [place] HEMATOLOGY Eosinophils # 0.1 K/CMM 0.0 - 0.5 06/21 [place] HEMATOLOGY Segs 67.6 % 45.0 - 06/21 [place] 75.0 [place] HEMATOLOGY Lymphocytes 24.1 % 20.0 - 06/21 [facility] [place] 40.0 /2013 [facility] HEMATOLOGY Monocytes 6.2 % 2.0 - 12.0 06/21 [place] HEMATOLOGY Eosinophils 1.7 % 0.0 - 4.0 06/21 [place] [facility] HEMATOLOGY Platelet 307 K/CMM 133 - 450 06/21 [facility] HEMATOLOGY RDW 14.2 % 11.5 - 06/21 [facility] [place] 14.5 [facility] HEMATOLOGY MCHC 33.4 g/dL 32.0 - 06/21 [facility] [place] 36.0 /2013 [facility] HEMATOLOGY Hgb 10.6 g/dL 12.0 - 06/21 [place] 16.0 [facility] HEMATOLOGY MCH 31.0 pg 27.0 - 06/21 [place] 31.0 /2013 [facility] HEMATOLOGY WBC 5.0 K/CMM 3.7 - 10.4 06/21 [facility] HEMATOLOGY RBC 3.40 M/CMM 4.20 - 06/21 [place] 5.40 /2013 [facility] HEMATOLOGY MCV 92.8 fL 80.0 - 06/21 [place] 98.0 [facility] HEMATOLOGY Hct 31.5 % 36.0 - 06/21 [place] 48.0 /2013 [facility] HEMATOLOGY MPV 7.6 fL 7.4 - 10.4 06/21 [place] PARATHYROID Ca Ion WB 0.91 1.05 - 06/20 [place] PROFILE mMol/L . [facility] PARATHYROID Ca Norm WB 0.94 1.05 - 06/20 [place] PROFILE mMol/L . [facility] CHEM PANEL Magnesium Lvl 2.2 mg/dL 1.8 - 2.4 06/20 [facility] CHEM PANEL eGFR 106 06/20 4Result Comment: The eGFR is calculated using the CKD-EPI formula. In most young, healthy individuals the eGFR will be > 90 mL/min/1.73m2. The eGFR declines with age. An eGFR of 60-89 may be normal in mL/min/1.7 some populations, particularly the elderly, for whom the CKD-EPI formula has not been extensively validated. Use of the eGFR is not recommended in the following populations: [place] 3m2 Individuals with unstable creatinine concentrations, including patients and those with serious co-morbid conditions. Patients with extremes in muscle mass or diet. The data above are obtained from the National Kidney Disease Education Program (NKDEP) which additionally recommends that when the eGFR is used in patients with extremes of body mass index for purposes of drug dosing, the eGFR should be multiplied by the estimated BMI. CHEM PANEL Calcium Lvl 7.0 mg/dL 8.5 - 10.5 06/20 9Result Comment: [facility]ubba Critical Result(s) called to Olive Mohan RN at 06/20/2014 15:36 by ssj. Read back OK. CHEM PANEL CO2 35 meq/L 24 - 32 06/20 [place] CHEM PANEL AGAP 7.6 meq/L 10.0 - 06/20 [place] 20.0 /2013 [place] CHEM PANEL Chloride Lvl 102 meq/L 95 - 109 06/20 [place] CHEM PANEL Potassium Lvl 2.6 meq/L 3.5 - 5.1 06/20 1Result Comment: [place]ubba Critical Result(s) called to Olive Guerrero RN at 06/20/2014 15:36 byssj. Read back OK. CHEM PANEL BUN 17 mg/dL 7 - 06/20 [place] CHEM PANEL Creatinine 0.6 mg/dL 0.5 - 1.4 06/20 [place] CHEM PANEL Sodium Lvl 142 meq/L 135 - 145 06/20 [place] CHEM PANEL Glucose Lvl 96 mg/dL 70 - 99 06/20 7Interpretive Data: Adult reference range values reflect the clinical guidelines of the [place] [employer]. [place] CHEM PANEL Phosphorus 2.9 mg/dL 2.5 - 4.5 06/20 [place] CHEM PANEL Magnesium Lvl 0.7 mg/dL 1.8 - 2.4 06/20 [place] CHEM PANEL BUN 16 mg/dL 7 - 22 06/20 [place] CHEM PANEL Creatinine 0.7 mg/dL 0.5 - 1.4 06/20 [place] CHEM PANEL Sodium Lvl 144 meq/L 135 - 145 06/20 [place] CHEM PANEL eGFR 101 06/20 5Result Comment: The eGFR is calculated using the CKD-EPI formula. In most young, healthy individuals the eGFR will be > 90 mL/min/1.73m2. The eGFR declines with age. An eGFR of 60-89 may be normal in [place] mL/min/1.7 some populations, particularly the elderly, for whom the CKD-EPI formula has not been extensively validated. Use of the eGFR is not recommended in the following populations: [place] 3m2 Individuals with unstable creatinine concentrations, including patients and those with serious co-morbid conditions. Patients with extremes in muscle mass or diet. The data above are obtained from the National Kidney Disease Education Program (NKDEP) which additionally recommends that when the eGFR is used in patients with extremes of body mass index for purposes of drug dosing, the eGFR should be multiplied by the estimated BMI. CHEM PANEL Calcium Lvl 7.3 mg/dL 8.5 - 10.5 06/20 [place] CHEM PANEL CO2 31 meq/L 24 - 32 06/20 [facility] CHEM PANEL Potassium Lvl 2.7 meq/L 3.5 - 5.1 06/20 2Result Comment: [facility] Critical Result(s) called to [place] ALANIZ R.N. at 06/20/2014 07:35 by [employer]. Read back OK. CHEM PANEL Chloride Lvl 101 meq/L 95 - 109 06/20 [facility] CHEM PANEL AGAP 14.7 meq/L 10.0 - 06/20 [place] 20.0 [facility] CHEM PANEL Glucose Lvl 92 mg/dL 70 - 99 06/20 8Interpretive Data: Adult reference range values reflect the clinical guidelines of the [place] [employer]. [facility] Serology HELICOB IGG <0.4 U/mL 04/11 [facility] Serology HELICOB IGG <0.4 U/mL 04/11 [facility] Serology HELICOB IGG <0.4 U/mL 04/11 [facility] Client Customer Manager PAP SMEAR Done 04/11 [facility] Client Customer Manager PAP SMEAR Done 04/11 [facility] Client Customer Manager PAP SMEAR Done 04/11 [facility] Vital Signs Vital Sign Value Date Comments Source Height 167.64 cm 11/25/2017 [facility] BMI Calculated 15.85 11/25/2017 [facility] Weight 44.545 11/25/2017 [facility] Systolic (mm Hg) 109 11/25/2017 [facility] Diastolic (mm Hg) 78 11/25/2017 [facility] Respitory Rate 17 11/25/2017 [facility] Temperature Oral (F) 97.8 F 11/25/2017 [facility] Heart Rate 93 11/25/2017 [facility] Height 167.64 cm 09/23/2017 [facility] BMI Calculated 15.69 09/23/2017 [facility] Temperature Oral (F) 97.1 F 09/23/2017 [facility] Heart Rate 107 09/23/2017 [facility] Respitory Rate 17 09/23/2017 [facility] Weight 44.091 09/23/2017 [facility] Systolic (mm Hg) 120 09/23/2017 [facility] Diastolic (mm Hg) 94 09/23/2017 [facility] Temperature Oral (F) 98.4 F 07/06/2017 [facility] Respitory Rate 20 07/06/2017 [facility] Heart Rate 98 07/06/2017 [facility] Systolic (mm Hg) 133 07/06/2017 [facility] Diastolic (mm Hg) 82 07/06/2017 [facility] Weight 49.091 07/05/2017 [facility] Heart Rate 98 07/05/2017 [facility] Systolic (mm Hg) 121 07/05/2017 [facility] Diastolic (mm Hg) 85 07/05/2017 [facility] Respitory Rate 20 07/05/2017 [facility] Temperature Oral (F) 97.9 F 07/05/2017 [facility] Respitory Rate 16 05/16/2017 [facility] Systolic (mm Hg) 113 05/16/2017 [facility] Diastolic (mm Hg) 89 05/16/2017 [facility] Temperature Oral (F) 98.2 F 05/16/2017 [facility] Heart Rate 78 05/16/2017 [facility] Temperature Oral (F) 98.1 F 05/16/2017 [facility] Respitory Rate 20 05/16/2017 [facility] Systolic (mm Hg) 116 05/16/2017 [facility] Diastolic (mm Hg) 84 05/16/2017 [facility] Heart Rate 95 05/16/2017 [facility] Weight 52.045 05/16/2017 [facility] Weight 112 07/11/2014 [facility] Temperature Oral (F) 98 F 07/11/2014 [facility] Respitory Rate 24 07/11/2014 [facility] Heart Rate 91 07/11/2014 [facility] Systolic (mm Hg) 127 07/11/2014 [facility] Diastolic (mm Hg) 87 07/11/2014 [facility] Respitory Rate 18 06/21/2014 [facility] Systolic (mm Hg) 122 06/21/2014 [facility] Heart Rate 71 06/21/2014 [facility] Diastolic (mm Hg) 76 06/21/2014 [facility] Temperature Oral (F) 98.7 F 06/21/2014 [facility] Heart Rate 66 06/21/2014 [facility] Temperature Oral (F) 97.7 F 06/21/2014 [facility] Diastolic (mm Hg) 78 06/21/2014 [facility] Respitory Rate 18 06/21/2014 [facility] Systolic (mm Hg) 107 06/21/2014 [facility] Systolic (mm Hg) 110 06/21/2014 [facility] Diastolic (mm Hg) 78 06/21/2014 [facility] Temperature Oral (F) 98.3 F 06/21/2014 [facility] Respitory Rate 11 06/21/2014 [facility] Heart Rate 76 06/21/2014 [facility] Weight 51.818 06/20/2014 [facility] BMI Calculated 18.44 06/20/2014 [facility] Height 167.64 cm 06/20/2014 [facility] BMI Calculated 18.44 06/20/2014 [facility] Weight 51.818 06/20/2014 [facility] Height 167.64 cm 06/20/2014 [facility] Height 165.1 cm 06/20/2014 [facility] BMI Calculated 19.01 06/20/2014 [facility] Weight 51.818 06/20/2014 [facility] Weight 127.8 12/21/2012 [facility] Temperature Oral (F) 98.3 F 12/21/2012 [facility] Respitory Rate 20 12/21/2012 [facility] Heart Rate 80 12/21/2012 [facility] Systolic (mm Hg) 100 12/21/2012 [facility] Diastolic (mm Hg) 78 12/21/2012 [facility] Weight 136 08/25/2012 [facility] Heart Rate 68 08/25/2012 [facility] Systolic (mm Hg) 110 08/25/2012 [facility] Diastolic (mm Hg) 82 08/25/2012 [facility] Height 66 08/25/2012 [facility] Weight 137 08/09/2012 [facility] Temperature Oral (F) 98.2 F 08/09/2012 [facility] Respitory Rate 20 08/09/2012 [facility] Heart Rate 84 08/09/2012 [facility] Systolic (mm Hg) 126 08/09/2012 [facility] Diastolic (mm Hg) 80 08/09/2012 [facility] Systolic (mm Hg) 130 04/10/2012 [facility] Diastolic (mm Hg) 80 04/10/2012 [facility] Height 64 04/07/2012 [facility] Weight 143 04/07/2012 [facility] Heart Rate 78 04/07/2012 [facility] Systolic (mm Hg) 116 04/07/2012 [facility] Diastolic (mm Hg) 64 04/07/2012 [facility] Encounters Location Location Encounter Encounter Reason Attending ADM DC Status Source Details Type Number For Provider Date Date Visit [facility] [id number] [place] 06/20 06/21 [place] [facility] 1 [place] Patient [facility] Lab Report [id number] Dottie Wing, 07/11 07/11 [place] [facility] [id number] PA-C /2014 Medical [facility] Office [id number] Dottie Wing, 07/11 07/11 [place] Visit [id number] PA-C /2014 Medical [facility] Lab Report [id number] Dottie Wing, 07/30 07/30 [place] [facility] [id number] PA-C /2014 Medical [facility] Lab Report [id number] Dottie Wing, 10/08 10/08 [place] [facility] [id number] PA-C /2014 Medical [facility] Outpatient [id number] LES 01/19 Active [facility] 0 [place] [facility] [id number] RADHA 12/15 Active [facility] 1 [facility] [id number] Ivon 05/16 05/16 [place] 3 [facility] Emergency [id number] Julian Gifford 07/05 07/06 [place] [facility]patient [id number] [facility] 09/23 09/24 [place] [address] [facility] Cardiology [facility] [place] Outpatient [id number] [facility] 11/25 11/26 [place] [address] Gavin /2017 Medical Cardiology [facility] Procedures Procedure Code Date Perfomer Comments Source smoking/tobacco 14 07/11/2014 yes Medical cessation, patient Group education and counseling smoking/tobacco 14 08/09/2012 DONE Medical cessation, patient Group education and counseling colonoscopy [id number] 07/14/2012 [facility] vaginal Pap smear [id number] 04/11/2006 Done Medical results Group Colostomy [id number] [facility] Colostomy [id number] [place]
--- OUTSIDE RECORDS SUMMARY | 2018-01-10 12:21 | XMS REPORT | Summary of Care ---
:1960 Author Organization [facility] Address [address] [place], [place] [address]- Encounter HQ Scotty(FIN) [id number] Date(s): 11/25/17 - 11/25/[address] [phone] Discharge Disposition: Home or Self Care Attending Physician: Mikael Tobias MD PHD Referring Physician: Mikael Tobias MD PHD Vital Signs Most recent to oldest [Reference Range]: 1 Height 167.64 cm (11/25/17 2:01 PM) Temperature Oral [96.4-99.1 DegF] 97.8 DegF (11/25/17 2:01 PM) Blood Pressure [90-140/60-90 mmHg] 109/78 mmHg (11/25/17 2:01 PM) Respiratory Rate [14-20 BRMIN] 17 BRMIN (11/25/17 2:01 PM) Peripheral Pulse Rate [60-100 bpm] 93 bpm (11/25/17 2:01 PM) Weight 44.545 kg (11/25/17 2:01 PM) Body Mass Index 15.85 m2 (11/25/17 2:01 PM) Problem List Condition Effective Dates Status Health Status Informant Abdominal pain1 04/10/12 Active Altered bowel function2 04/07/12 Active Benign hypertension3 Active Cervical cancer(Confirmed) Resolved Deep vein thrombosis(Confirmed) Active DVT of popliteal vein(Confirmed) Active Depressive disorder4 12/21/12 Active Diarrhea5 04/07/12 Active Finding of gastrointestinal tract 04/07/12 Active gas6 Hx of cervical cancer(Confirmed) Active Hypertension(Confirmed) Active Hypokalemia7 07/11/14 Active Hypomagnesemia8 07/11/14 Active Long-term drug therapy9 08/09/12 Active Nausea and [id number] 04/07/12 Active Unintended weight loss(Confirmed) Active Weight [id number] 08/25/12 Active 1Data migrated from [employer] on 11/30/14.2Data migrated from [employer] on 11/30/14.3Data migrated from [employer] on 11/30/14.4Data migrated from [employer] on 11/30/14.5Data migrated from [employer] on 11/30/14.6Data migrated from [employer] on 11/30/14.7Data migrated from [employer] on 11/30.8Data migrated from [employer] on 11/30/14.9Data migrated from [employer] on 11/30/14.10Data migrated from [employer] on 11/30/14.11Data migrated from [employer] on 11/30/14. Allergies, Adverse Reactions, Alerts Substance Reaction Severity Status NKDA Active Medications No Known Medications Results No data available for this section Immunizations No data available for this section Procedures Procedure Date Related Diagnosis Body Site Status Colostomy Completed Social History Social History Type Response Substance Abuse Use: None. Employment/School Status: Employed. 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 Highest education level: Some college. Alcohol Never Smoking Status Current every day smoker; Exposure to Tobacco Smoke pt is smoker; Cigarette Smoking Last 365 Days Yes; Reg Smoking Cessation Counseling No entered on: 11/25/17 Assessment and Plan No data available for this section
--- OUTSIDE RECORDS SUMMARY | 2018-01-10 12:21 | XMS REPORT | Continuity of Care Document ---
:1960 Author Organization [facility] Care Team Providers Name Role Phone PHYLLIS Wing, Dottie Unavailable Unavailable Insurance Providers Payer name Policy type / Policy ID Covered green party ID Policy Bryant Coverage type [facility] EPO CHOICE PRIMAR CIGNA - OPEN ACCESS PLUS Encounters Encounter Performer Location Date Lab Report Dottie Wing PA-C [facility] Jul 30, 2014 Problems Problem Effective Dates Problem Status HTN Active FLATULENCE ERUCTATION AND GAS PAIN Apr 07, 2012 Active NAUSEA WITH VOMITING Apr 07, 2012 Active DIARRHEA Apr 07, 2012 Active CHANGE IN BOWELS Apr 07, 2012 Active ABDOMINAL PAIN, UNSPECIFIED SITE Apr 10, 2012 Active LONG-TERM (CURRENT) USE OF OTHER MEDICATIONS Aug 09, 2012 Active ABDOMINAL PAIN, EPIGASTRIC Aug 25, 2012 Inactive LOSS OF WEIGHT Aug 25, 2012 Active DEPRESSION Dec 21, 2012 Active HYPOKALEMIA Jul 11, 2014 Active HYPOMAGNESEMIA Jul 11, 2014 Active Procedures Date Description Comments Apr 11, 2006 vaginal Pap smear results Done Apr 07, 2012 smoking status current every day smoker Aug 09, 2012 smoking/tobacco cessation, patient education DONE and counseling Jul 14, 2012 colonoscopy Complete Jul 11, 2014 smoking status current every day smoker Jul 11, 2014 smoking/tobacco cessation, patient education yes and counseling Medications Medication Instructions Start Date Status DICYCLOMINE HCL 10 MG CAPS 1 pill 4 times a day as needed Apr 07, 2012 Inactive for abd cramping. ALIGN 4 MG CAPS 1 pill daily. Apr 07, 2012 Inactive TRAMADOL HCL 50 MG TABS 1 tab po qid prn pain Apr 10, 2012 Inactive PROMETHAZINE HCL 25 MG TABS 1 tab po q6hr prn N/V Apr 10, 2012 Inactive LISINOPRIL-HYDROCHLOROTHIAZIDE 1 tab po daily Apr 07, 2012 Inactive 20-12.5 MG TABS TRAMADOL 50MG PRN Aug 25, 2012 Inactive PROMATHAZINE 25MG PRM Aug 25, 2012 Inactive OMEPRAZOLE 20 MG CPDR 1 pill daily. Aug 25, 2012 Inactive SUCRALFATE 1 GM TABS 1 pill 30 minutes before each Aug 25, 2012 Inactive meal and at bedtime. LEXAPRO 10 MG TABS one a day Dec 21, 2012 Inactive HYDROCODONE-ACETAMINOPHEN 5-500 one tablet three times a day Jan 25, 2013 Inactive MG TABS POTASSIUM CHLORIDE ER 10 MEQ three tablets a day for next 4 Jul 11, 2014 Active CR-CAPS days then adjust if able Vital Signs Date Description Test Result Apr 07, 2012 height E&M - 8302-2 HEIGHT 64 in Apr 07, 2012 weight E&M - 3141-9 WEIGHT 143 lb Apr 07, 2012 pulse rate E&M - 8867-4 PULSE RATE 78 /min Apr 07, 2012 blood pressure, systolic - 8480-6 BP SYSTOLIC 116 mm Hg Apr 07, 2012 blood pressure, diastolic - 8462-4 BP DIASTOLIC 64 mm Hg Apr 10, 2012 blood pressure, systolic - 8480-6 BP SYSTOLIC 130 mm Hg Apr 10, 2012 blood pressure, diastolic - 8462-4 BP DIASTOLIC 80 mm Hg Aug 09, 2012 weight E&M - 3141-9 WEIGHT 137 lb Aug 09, 2012 temperature E&M TEMPERATURE 98.2 deg f Aug 09, 2012 respiratory rate E&M - 9279-1 RESP RATE 20 /min Aug 09, 2012 pulse rate E&M - 8867-4 PULSE RATE 84 /min Aug 09, 2012 blood pressure, systolic - 8480-6 BP SYSTOLIC 126 mm Hg Aug 09, 2012 blood pressure, diastolic - 8462-4 BP DIASTOLIC 80 mm Hg Aug 25, 2012 weight E&M - 3141-9 WEIGHT 136 lb Aug 25, 2012 pulse rate E&M - 8867-4 PULSE RATE 68 /min Aug 25, 2012 blood pressure, systolic - 8480-6 BP SYSTOLIC 110 mm Hg Aug 25, 2012 blood pressure, diastolic - 8462-4 BP DIASTOLIC 82 mm Hg Aug 25, 2012 height E&M - 8302-2 HEIGHT 66 in Dec 21, 2012 weight E&M - 3141-9 WEIGHT 127.8 lb Dec 21, 2012 temperature E&M TEMPERATURE 98.3 deg f Dec 21, 2012 respiratory rate E&M - 9279-1 RESP RATE 20 /min Dec 21, 2012 pulse rate E&M - 8867-4 PULSE RATE 80 /min Dec 21, 2012 blood pressure, systolic - 8480-6 BP SYSTOLIC 100 mm Hg Dec 21, 2012 blood pressure, diastolic - 8462-4 BP DIASTOLIC 78 mm Hg Jul 11, 2014 weight E&M - 3141-9 WEIGHT 112 lb Jul 11, 2014 temperature E&M TEMPERATURE 98 deg f Jul 11, 2014 respiratory rate E&M - 9279-1 RESP RATE 24 /min Jul 11, 2014 pulse rate E&M - 8867-4 PULSE RATE 91 /min Jul 11, 2014 blood pressure, systolic - 8480-6 BP SYSTOLIC 127 mm Hg Jul 11, 2014 blood pressure, diastolic - 8462-4 BP DIASTOLIC 87 mm Hg Results Date Description Test Name Value Reference Interpretation Status Jul 11, sodium, serum SODIUM 142 mmol/L [phone] Jul 11, potassium, serum POTASSIUM 2.8 mmol/L 3.3-5.0 Panic low 2014Jul 11, urea nitrogen, BUN 14 mg/dL 8-20 2014 blood Jul 11, creatinine, serum CREATININE 0.63 mg/dL 0.46-1.20 2014Jul 11, calcium, serum CALCIUM 8.0 mg/dL 8.8-10.0 Low 2014Jul 11, magnesium, serum MAGNESIUM 1.1 mg/dL 1.9-2.5 Low 2014Jul 30, potassium, serum POTASSIUM 4.1 mmol/L 3.3-5.0 2014Jul 30, magnesium, serum MAGNESIUM 1.9 mg/dL 1.9-2.5 2014Apr 10, Helicobacter pylori HELICOB IGG <0.4 U/mL 2011 antibody, IgG, null serum Apr 11, vaginal Pap smear PAP SMEAR Done null 2005 results
--- OUTSIDE RECORDS SUMMARY | 2018-01-10 12:21 | XMS REPORT | Continuity of Care Document ---
:1960 Author Organization [facility] Care Team Providers Name Role Phone PHYLLIS Wing, Dottie Unavailable Unavailable Insurance Providers Payer name Policy type / Policy ID Covered democrat ID Policy Bryant Coverage type [facility] EPO CHOICE PRIMAR CIGNA - OPEN ACCESS PLUS Encounters Encounter Performer Location Date Lab Report Dottie Wing PA-C [facility] Jul 11, 2014 Problems Problem Effective Dates Problem Status [...] Jul 11, sodium, serum SODIUM 142 mmol/L [phone] Jul 11, potassium, serum POTASSIUM 2.8 mmol/L 3.3-5.0 Panic low 2014Jul 11, urea nitrogen, BUN 14 mg/dL 8-20 2015 blood Jul 11, creatinine, serum CREATININE 0.63 mg/dL 0.46-1.20 2014Jul 11, calcium, serum CALCIUM 8.0 mg/dL 8.8-10.0 Low 2014Jul 11, magnesium, serum MAGNESIUM 1.1 mg/dL 1.9-2.5 Low 2014Apr 10, Helicobacter pylori HELICOB IGG <0.4 U/mL 2012 antibody, IgG, null serum Apr 11, vaginal Pap smear PAP SMEAR Done null 2005 results
--- OUTSIDE RECORDS SUMMARY | 2018-01-10 12:21 | XMS REPORT | Continuity of Care Document ---
:1960 Author Organization [facility] Care Team Providers Name Role Phone PHYLLIS Wing, Dottie Unavailable Unavailable Insurance Providers Payer name Policy type / Policy ID Covered democrat ID Policy Bryant Coverage type [facility] EPO CHOICE PRIMAR CIGNA - OPEN ACCESS PLUS Encounters Encounter Performer Location Date Office Visit Dottie Wing PA-C [facility] Jul 11, 2014 Practice Problems Problem Effective Dates Problem Status HTN [...] Jul 11, sodium, serum SODIUM 142 mmol/L [phone] Jul 11, potassium, serum POTASSIUM 2.8 mmol/L [...]
--- OUTSIDE RECORDS SUMMARY | 2018-01-10 12:21 | XMS REPORT | Summary of Care ---
:1960 Author Organization [facility] Address [address], [place] [address]- Encounter HQ Sharmin_vu([facility]) [id number] Date(s): 05/15/17 - 05/15/17 [facility] [address] [place] [address]- Discharge Diagnosis: Hypomagnesemia Discharge Diagnosis: Hypokalemia Discharge Disposition: Home or Self Care Attending Physician: Ivon Sharma MD Vital Signs Most recent to oldest [Reference Range]: 1 2 Temperature Oral [96.4-99.1 DegF] 98.2 DegF 98.1 DegF (05/15/17 11:15 PM) (05/15/17 7:52 PM) Blood Pressure [90-140/60-90 mmHg] 113/89 mmHg 116/84 mmHg (05/15/17 11:15 PM) (05/15/17 7:52 PM) Respiratory Rate [14-20 BRMIN] 16 BRMIN 20 BRMIN (05/15/17 11:15 PM) (05/15/17 7:52 PM) Peripheral Pulse Rate [60-100 bpm] 78 bpm 95 bpm (05/15/17 11:15 PM) (05/15/17 7:52 PM) Weight 52.045 kg (05/15/17 7:52 PM) Problem List Condition Effective Dates Status Health Status Informant Abdominal pain1 04/10/12 Active Altered bowel function2 04/07/12 Active Benign hypertension3 Active Cervical cancer(Confirmed) Resolved Depressive disorder4 12/21/12 Active Diarrhea5 04/07/12 Active Finding of gastrointestinal tract 04/07/12 Active gas6 Hypokalemia7 07/11/14 Active Hypomagnesemia8 07/11/14 Active Long-term drug therapy9 08/09/12 Active Nausea and [id number] 04/07/12 Active Weight [id number] 08/25/12 Active 1Data migrated from [employer] [...] Substance Reaction Severity Status NKDA Active Medications magnesium sulfate 2 gm, 50 mL, Route: IV, Drug form: INJ, ONCE, Dosing Weight 52.045, kg, Priority : STAT, Start date: 05/15/17 21:59:00 JOB RECRUITER, Stop date: 05/15/17 21:59:00 JOB RECRUITER Notes: WASTE: F/P - Sink; E - Municipal Trash Bin Start Date: 05/15/17 Stop Date: 05/15/17 Status: Completedpotassium chloride 20 mEq oral tablet, extended release 20 mEq, 1 tab, Route: PO, Drug form: ERTAB, ONCE, Dosing Weight 52.045, kg, Priority: STAT, Start date: 05/15/17 21:59:00 JOB RECRUITER, Stop date: 05/15/17 21:59:00 JOB RECRUITER Notes: (Same as: K-Dur 20)"Do Not Crush" With food and full glass of water Start Date: 05/15/17 Stop Date: 05/15/17 Status: CompletedSaline Flush 0.9% 10 mL, Route: IVP, Drug Form: INJ, Dosing Weight 52.045, kg, PRN, PRN Line Flush , Start date: 05/15/17 20:38:00 JOB RECRUITER, Duration: 30 day, Stop date: 06/14/17 20:37 :00 JOB RECRUITER Notes: (Same as: BD Posiflush) Start Date: 05/15/17 Stop Date: 05/15/17 Status: Discontinued Results ELECTROLYTES Most recent to oldest [Reference Range]: 1 Sodium Lvl [135-145 mEq/L] 143 mEq/L (05/15/17 9:08 PM) Potassium Lvl [3.5-5.1 mEq/L] 3.3 mEq/L *LOW* (05/15/17 9:08 PM) Chloride Lvl [95-109 mEq/L] 102 mEq/L (05/15/17 9:08 PM) CO2 [24-32 mEq/L] 29 mEq/L (05/15/17 9:08 PM) AGAP [10.0-20.0 mEq/L] 15.3 mEq/L (05/15/17 9:08 PM) CHEM PANEL Most recent to oldest [Reference Range]: 1 Creatinine Lvl [0.50-1.40 mg/dL] 0.76 mg/dL (05/15/17 9:08 PM) eGFR 89 mL/min/1.73m2 1 *NA* (05/15/17 9:08 PM) BUN [7-22 mg/dL] 27 mg/dL *HI* (05/15/17 9:08 PM) B/C Ratio [6-25] 36 *HI* (05/15/17 9:08 PM) Glucose Lvl [70-99 mg/dL] 93 mg/dL (05/15/17 9:08 PM) Total Protein [6.4-8.4 g/dL] 6.5 g/dL (05/15/17 9:08 PM) Albumin Lvl [3.5-5.0 g/dL] 3.1 g/dL *LOW* (05/15/17 9:08 PM) Globulin [2.7-4.2 g/dL] 3.4 g/dL (05/15/17 9:08 PM) A/G Ratio [0.7-1.6] 0.9 (05/15/17 9:08 PM) Calcium Lvl [8.5-10.5 mg/dL] 7.1 mg/dL *LOW* (05/15/17 9:08 PM) Phosphorus [2.5-4.5 mg/dL] 4.5 mg/dL (05/15/17 9:08 PM) Magnesium Lvl [1.8-2.4 mg/dL] 1.1 mg/dL *LOW* (05/15/17 9:08 PM) ALT [0-65 unit/L] 25 unit/L (05/15/17 9:08 PM) AST [0-37 unit/L] 23 unit/L (05/15/17 9:08 PM) Alk Phos [39-136 unit/L] 139 unit/L *HI* (05/15/17 9:08 PM) Bili Total [0.2-1.3 mg/dL] 0.6 mg/dL (05/15/17 9:08 PM) 1Result Comment: The eGFR is calculated using the CKD-EPI formula. In most young , healthy individualsthe eGFR will be >90 mL/min/1.73m2. The eGFR declines with age. An eGFR of 60-89 may be normal insome populations, particularly the elderly, for whom the CKD-EPI formula has not been extensively validated. Use of the eGFR is not recommended in the following populations: Individuals with unstable creatinine concentrations, including patients and those with serious co-morbid conditions. Patients with extremes in muscle mass or diet. The data above are obtained from the National Kidney Disease Education Program ( NKDEP) which additionally recommends that when the eGFR is used in patients with extremes of body mass index for purposesof drug dosing, the eGFR should be multiplied by the estimated BMI.URINE AND STOOL Most recent to oldest [Reference Range]: 1 UA Turbidity [Clear] Slight *ABN* (05/15/17 9:15 PM) UA Color [Yellow] Christi *ABN* (05/15/17 9:15 PM) UA pH [5.0-8.0] 5.0 (05/15/17 9:15 PM) UA Spec Grav [<=1.030] 1.026 (05/15/17 9:15 PM) UA Glucose [Negative mg/dL] Negative mg/dL *NA* (05/15/17 9:15 PM) UA Blood [Negative] Negative (05/15/17 9:15 PM) UA Ketones [Negative mg/dL] 20 mg/dL *ABN* (05/15/17 9:15 PM) UA Protein [Negative mg/dL] Negative mg/dL (05/15/17 9:15 PM) UA Urobilinogen [0.1-1.0 mg/dL] 2.0 mg/dL *HI* (05/15/17 9:15 PM) UA Bili [Negative] Small *ABN* (05/15/17 9:15 PM) UA Leuk Est [Negative] Trace *ABN* (05/15/17 9:15 PM) UA Nitrite [Negative] Negative (05/15/17 9:15 PM) UA WBC [0-5 /HPF] 2 /HPF (05/15/17 9:15 PM) UA RBC [0-2 /HPF] 4 /HPF *HI* (05/15/17 9:15 PM) UA Sq Epi [Few /LPF] Occasional /LPF *NA* (05/15/17 9:15 PM) UA Hyal Cast [0-2 /LPF] 42 /LPF *HI* (05/15/17 9:15 PM) UA Mucus [None Seen /LPF] Few /LPF *NA* (05/15/17 9:15 PM) HEMATOLOGY Most recent to oldest [Reference Range]: 1 WBC [3.7-10.4 K/CMM] 7.8 K/CMM (05/15/17 9:08 PM) RBC [4.20-5.40 M/CMM] 3.64 M/CMM *LOW* (05/15/17 9:08 PM) Hgb [12.0-16.0 g/dL] 11.6 g/dL *LOW* (05/15/17 9:08 PM) Hct [36.0-48.0 %] 35.3 % *LOW* (05/15/17 9:08 PM) MCV [80.0-98.0 fL] 96.8 fL (05/15/17 9:08 PM) MCH [27.0-31.0 pg] 31.9 pg *HI* (05/15/17 9:08 PM) MCHC [32.0-36.0 g/dL] 32.9 g/dL (05/15/17 9:08 PM) RDW [11.5-14.5 %] 15.3 % *HI* (05/15/17 9:08 PM) Platelet [133-450 K/CMM] 345 K/CMM (05/15/17 9:08 PM) MPV [7.4-10.4 fL] 7.6 fL (05/15/17 9:08 PM) Segs [45.0-75.0 %] 74.8 % (05/15/17 9:08 PM) Lymphocytes [20.0-40.0 %] 16.0 % *LOW* (05/15/17 9:08 PM) Monocytes [2.0-12.0 %] 8.4 % (05/15/17 9:08 PM) Eosinophils [0.0-4.0 %] 0.5 % (05/15/17 9:08 PM) Basophils [0.0-1.0 %] 0.3 % (05/15/17 9:08 PM) Segs-Bands # [1.5-8.1 K/CMM] 5.8 K/CMM (05/15/17 9:08 PM) Lymphocytes # [1.0-5.5 K/CMM] 1.2 K/CMM (05/15/17 9:08 PM) Monocytes # [0.0-0.8 K/CMM] 0.7 K/CMM (05/15/17 9:08 PM) Eosinophils # [0.0-0.5 K/CMM] 0.0 K/CMM (05/15/17 9:08 PM) Basophils # [0.0-0.2 K/CMM] 0.0 K/CMM (05/15/17 9:08 PM) Immunizations No data available for this section Procedures Procedure Date Related Diagnosis Body Site Colostomy Social History Social History Type Response Substance Abuse Use: None. Employment/School Status: Employed. 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 Highest education level: Some college. Alcohol Never Smoking Status Current every day smoker; Exposure to Tobacco Smoke pt is smoker; Cigarette Smoking Last 365 Days Yes; Reg Smoking Cessation Counseling Yes Assessment and Plan No data available for this section
--- OUTSIDE RECORDS SUMMARY | 2018-01-10 12:21 | XMS REPORT | Summary of Care ---
:1960 Author Organization [facility] Address [address], [place] [address]- Encounter HQ Scotty([facility]) [id number] Date(s): 07/05/17 - 07/05/17 [facility] [address] [place] [address]- Discharge Diagnosis: Acute deep vein thrombosis (DVT) of popliteal vein of left lower extremity Discharge Disposition: Home or Self Care Attending Physician: Julian Gifford MD Vital Signs Most recent to oldest [Reference Range]: 1 2 Temperature Oral [96.4-99.1 DegF] 98.4 DegF 97.9 DegF (07/05/17 7:35 PM) (07/05/17 5:46 PM) Blood Pressure [90-140/60-90 mmHg] 133/82 mmHg 121/85 mmHg (07/05/17 7:35 PM) (07/05/17 5:46 PM) Respiratory Rate [14-20 BRMIN] 20 BRMIN 20 BRMIN (07/05/17 7:35 PM) (07/05/17 5:46 PM) Peripheral Pulse Rate [60-100 bpm] 98 bpm 98 bpm (07/05/17 7:35 PM) (07/05/17 5:46 PM) Weight 49.091 kg (07/05/17 5:46 PM) Problem List Condition Effective Dates Status Health Status Informant Abdominal pain1 04/10/12 Active Altered bowel function2 04/07/12 Active Benign hypertension3 Active Cervical cancer(Confirmed) Resolved Depressive disorder4 12/21/12 Active Diarrhea5 04/07/12 Active Finding of gastrointestinal tract 04/07/12 Active gas6 Hypokalemia7 07/11/14 Active Hypomagnesemia8 07/11/14 Active Long-term drug therapy9 08/09/12 Active Nausea and [id number] 04/07/12 Active Weight [id number] 08/25/12 Active 1Data migrated from [employer] [...] Substance Reaction Severity Status NKDA Active Medications Blackstone 5/325 oral tablet 1 tab, Route: PO, Drug Form: TAB, Dosing Weight 49.091, kg, ONCE, STAT, Start date: 07/05/17 18:28:00 NITRATING ACID MIXER, Stop date: 07/05/17 18:28:00 NITRATING ACID MIXER Start Date: 07/05/17 Stop Date: 07/05/17 Status: Discontinuedrivaroxaban 20 mg oral tablet 20 mg=1 tab, PO, QPM, Beginning day 22,take one 20 mg tablet daily with food for the remainder of therapy., # 9 tab, 0 Refill(s) Start Date: 07/05/17 Stop Date: 07/14/17 Status: Orderedtramadol 50 mg oral tablet 50 mg=1 tab, PO, Q6H, PRN Pain, X 5 day, # 20 tab, 0 Refill(s) Start Date: 07/05/17 Stop Date: 07/05/17 Status: DiscontinuedTylenol with Codeine #3 oral tablet 1 - 2 tab, PO, Q6H, PRN Pain, not to exceed 4000 mg acetaminophen per day, X 3 day, # 20 tab, 0 Refill(s) Start Date: 07/05/17 Stop Date: 07/08/17 Status: OrderedXarelto 15 mg oral tablet 15 mg=1 tab, PO, Q12H, Take 15 mg tablets twice daily with food for 21 days. Beginning day 22,take one 20 mg tablet daily with food for the remainder of therapy., # 42 tab, 0 Refill(s) Start Date: 07/05/17 Stop Date: 07/26/17 Status: Ordered Results No data available for this section Immunizations No data available for this section Procedures Procedure Date Related Diagnosis Body Site Colostomy Social History Social History Type Response Substance Abuse Use: None. Employment/School Status: Employed. 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 Highest education level: Some college. Alcohol Never Smoking Status Current every day smoker; Exposure to Tobacco Smoke pt is smoker; Cigarette Smoking Last 365 Days Yes; Reg Smoking Cessation Counseling Yes Assessment and Plan No data available for this section
--- OUTSIDE RECORDS SUMMARY | 2018-01-10 12:21 | XMS REPORT | Summary of Care ---
:1960 Author Organization [facility] Address [address] [place], [place] [address]- Encounter HQ Scotty([facility]) [id number] Date(s): 09/23/17 - 09/23/[address] [address] [phone] Encounter Diagnosis Acute embolism and thrombosis of unspecified deep veins of left lower extremity (Final) - 09/29/17 Malignant neoplasm of cervix uteri, unspecified (Final) - Essential (primary) hypertension (Final) - Abnormal weight loss (Final) - halfway (current) use of anticoagulants (Final) - Nausea (Final) - Other fatigue (Final) - Nicotine dependence, cigarettes, uncomplicated (Final) - Discharge Disposition: Home or Self Care Attending Physician: Mikael Tobias MD PHD Referring Physician: Mikael Tobias MD PHD Vital Signs Most recent to oldest [Reference Range]: 1 Height 167.64 cm (09/23/17 12:53 PM) Temperature Oral [96.4-99.1 DegF] 97.1 DegF (09/23/17 12:53 PM) Blood Pressure [90-140/60-90 mmHg] 120/94 mmHg (09/23/17 12:53 PM) Respiratory Rate [14-20 BRMIN] 17 BRMIN (09/23/17 12:53 PM) Peripheral Pulse Rate [60-100 bpm] 107 bpm *HI* (09/23/17 12:53 PM) Weight 44.091 kg (09/23/17 12:53 PM) Body Mass Index 15.69 m2 (09/23/17 12:53 PM) Problem List Condition Effective Dates Status Health Status Informant Abdominal pain1 10/8/12 Active Altered bowel function2 04/07/12 Active Benign hypertension3 Active Cervical cancer(Confirmed) Resolved Deep vein thrombosis(Confirmed) Active DVT of popliteal vein(Confirmed) Active Depressive disorder4 12/21/12 Active Diarrhea5 04/07/12 Active Finding of gastrointestinal tract 04/07/12 Active gas6 Hx of cervical cancer(Confirmed) Active Hypertension(Confirmed) Active Hypokalemia7 07/11/14 Active Hypomagnesemia8 07/11/14 Active Long-term drug therapy9 08/09/12 Active Nausea and [id number] 04/07/12 Active Unintended weight loss(Confirmed) Active Weight [id number] 08/25/12 Active 1Data migrated from [employer] [...] Substance Reaction Severity Status NKDA Active Medications mirtazapine 15 mg oral tablet 15 mg=1 tab, PO, Bedtime, # 30 tab, 0 Refill(s) Start Date: 09/23/17 Stop Date: 11/25/17 Status: DiscontinuedVitamin D3 2000 intl units oral tablet 2,000 IntlUnit=1 tab, PO, Daily, 0 Refill(s) Start Date: 09/23/17 Stop Date: 11/25/17 Status: Discontinued Results No data available for this section Immunizations No data available for this section Procedures Procedure Date Related Diagnosis Body Site Status Colostomy Completed Social History Social History Type Response Substance Abuse Use: None. Employment/School Status: Employed. 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 Highest education level: Some college. Alcohol Never Smoking Status Current every day smoker; Exposure to Tobacco Smoke pt is smoker; Cigarette Smoking Last 365 Days Yes; Reg Smoking Cessation Counseling No entered on: 11/25/17 Assessment and Plan No data available for this section
--- OUTSIDE RECORDS SUMMARY | 2018-01-10 12:21 | XMS REPORT | Continuity of Care Document ---
:1960 Author Organization [facility] Care Team Providers Name Role Phone PHYLLIS Wing, Dottie Unavailable Unavailable Insurance Providers Payer name Policy type / Policy ID Covered democrat ID Policy Bryant Coverage type [facility] EPO CHOICE PRIMAR [employer] - OPEN ACCESS PLUS Encounters Encounter Performer Location Date Lab Report Dottie Wing PA-C [facility] Oct 08, 2014 Problems Problem Effective Dates Problem Status [...] Jul 11, sodium, serum SODIUM 142 mmol/L [phone] Jul 11, potassium, serum POTASSIUM 2.8 mmol/L 3.3-5.0 Panic low 2014Jul 11, urea nitrogen, BUN 14 mg/dL 8-20 2014 blood Jul 11, creatinine, serum CREATININE 0.63 mg/dL 0.46-1.20 2014Jul 11, calcium, serum CALCIUM 8.0 mg/dL 8.8-10.0 Low 2014Jul 11, magnesium, serum MAGNESIUM 1.1 mg/dL 1.9-2.5 Low 2014Jul 30, potassium, serum POTASSIUM 4.1 mmol/L 3.3-5.0 2014Jul 30, magnesium, serum MAGNESIUM 1.9 mg/dL 1.9-2.5 2014Oct 08, potassium, serum POTASSIUM 2.8 mmol/L 3.3-5.0 Panic low 2014Oct 08, magnesium, serum MAGNESIUM 1.1 mg/dL 1.9-2.5 Low 2014Apr 10, Helicobacter pylori HELICOB IGG <0.4 U/mL 2011 antibody, IgG, null serum Apr 11, vaginal Pap smear PAP SMEAR Done null 2005 results
--- OUTSIDE RECORDS SUMMARY | 2018-01-10 12:21 | XMS REPORT | Summary of Care ---
:1960 Author Encounter HQ Scotty(SHREYA) [id number] Date(s): 06/20/14 - 06/21/14 [facility] [address] Discharge Disposition: Home Physician Attending: Gilberto Barrera MD Physician_Referring: Bonilla Moss MD Reason for Visit HYPOKALEMIA/HYPOMAGNESEMIA Vital Signs Most recent to oldest 1 2 3 [Reference Range]: Height 167.64 cm 167.64 cm 165.1 cm (06/20/14 10:47 AM) (06/20/14 10:33 AM) (06/20/14 6:29 AM) Temperature Oral 98.7 DegF 97.7 DegF 98.3 DegF [96.4-99.1 DegF] (06/21/14 7:36 AM) (06/21/14 4:35 AM) (06/21/14 12:03 AM) Systolic Blood Pressure 122 mmHg 107 mmHg 110 mmHg [90-140 mmHg] (06/21/14 7:36 AM) (06/21/14 4:35 AM) (06/21/14 12:03 AM) Diastolic Blood Pressure 76 mmHg 78 mmHg 78 mmHg [60-90 mmHg] (06/21/14 7:36 AM) (06/21/14 4:35 AM) (06/21/14 12:03 AM) Respiratory Rate [14-20 18 BRMIN 18 BRMIN 11 BRMIN BRMIN] (06/21/14 7:36 AM) (06/21/14 4:35 AM) *LOW* (06/21/14 12:03 AM) Peripheral Pulse Rate 71 bpm 66 bpm 76 bpm [60-100 bpm] (06/21/14 7:36 AM) (06/21/14 4:35 AM) (06/21/14 12:03 AM) Weight 51.818 kg 51.818 kg 51.818 kg (06/20/14 10:47 AM) (06/20/14 10:33 AM) (06/20/14 6:29 AM) Body Mass Index 18.44 m2 18.44 m2 19.01 m2 (06/20/14 10:47 AM) (06/20/14 10:33 AM) (06/20/14 6:29 AM) Problem List Condition Effective Dates Status Health Status Informant Cervical cancer(Confirmed) Resolved Allergies, Adverse Reactions, Alerts Substance Reaction Severity Status NKDA Active Medications acetaminophen 650 mg, 2 tab, Route: PO, Drug form: TAB, Q4H, Dosing Weight 51.818, kg, PRN Pain 1-3/Temp > 100.4 F, Start date: 06/20/14 8:59:00, Duration: 30 day, Stop date: 07/20/14 8:58:00 Notes: Do not exceed 4 gm/day. (Same as: Tylenol) Start Date: 06/20/14 Stop Date: 06/21/14 Status: DiscontinuedALPRAZOLam 0.25 mg, 1 tab, Route: PO, Drug form: TAB, Q8H, Dosing Weight 51.818, kg, PRN Anxiety, Start date: 06/20/14 8:59:00, Duration: 30 day, Stop date: 07/20/14 8: 58:00 Notes: With food or milk(Same as: Xanax) Start Date: 06/20/14 Stop Date: 06/21/14 Status: DiscontinuedCalcium 600 +D oral tablet 1 tab, PO, TID, # 90 tab, 0 Refill(s) Start Date: 06/21/14 Status: Orderedcalcium chloride + Sodium Chloride 0.9% IV 100 mL 1,000 mg, 10 mL, Route: IVPB, Drug form: INJ, ONCE, Dosing Weight 51.818, kg, Start date: 06/20/14 17:21:00, Stop date: 06/20/14 17:21:00 Start Date: 06/20/14 Stop Date: 06/20/14 Status: Discontinuedcalcium gluconate + Sodium Chloride 0.9% IV 100 mL 1,000 mg, Route: IV, Drug form: INJ, ONCE, Start date: 06/20/14 19:00:00, Stop date: 06/20/14 19:00:00 Start Date: 06/20/14 Stop Date: 06/20/14 Status: CompleteddiphenhydrAMINE 25 mg, 1 tab, Route: PO, Drug form: TAB, Q6H, Dosing Weight 51.818, kg, PRN Itching, Start date: 06/20/14 8:59:00, Duration: 30 day, Stop date: 07/20/14 8: 58:00 Start Date: 06/20/14 Stop Date: 06/21/14 Status: Discontinuedibuprofen 200 mg, 1 tab, Route: PO, Drug form: TAB, Q6H, Dosing Weight 51.818, kg, PRN Pain 1-3/Temp > 100.4 F, Start date: 06/20/14 8:59:00, Duration: 30 day, Stop date: 07/20/14 8:58:00 Notes: (Same as: Advil) Give with food. Start Date: 06/20/14 Stop Date: 06/21/14 Status: Discontinuedketorolac 30 mg, 1 mL, Route: IVP, Drug form: INJ, ONCE, Dosing Weight 51.818, kg, Priority: STAT, Start date:06/20/14 7:26:00, Stop date: 06/20/14 7:26:00 Notes: (Same as:Toradol) IV bolus must be given >15 seconds. Give IM administration slowly and deeply into the muscle. Not for use > 4 days Start Date: 06/20/14 Stop Date: 06/20/14 Status: Completedmagnesium oxide 500 mg oral tablet 500 mg=1 tab, PO, Daily, # 30 tab, 0 Refill(s) Start Date: 06/21/14 Stop Date: 07/05/14 Status: Orderedmagnesium sulfate 2 gm in Water 50 ml 2 gm, 50 mL, Route: IVPB, Drug form: INJ, ONCE, Dosing Weight 51.818, kg, Start date: 06/20/14 7:46:00, Duration: 2 hr, Stop date: 06/20/14 7:46:00 Start Date: 06/20/14 Stop Date: 06/20/14 Status: Completedmagnesium sulfate 2gm / NS 50ml (premixed) 2 gm, 50 mL, Route: IVPB, Drug form: INJ, ONCE, Dosing Weight 51.818, kg, Start date: 06/20/14 12:00:00, Duration: 2 hr, Stop date: 06/20/14 12:00:00 Start Date: 06/20/14 Stop Date: 06/20/14 Status: Completedmorphine Sulfate 2 mg, 1 mL, Route: IVP, Drug form: INJ, Q4H, Dosing Weight 51.818, kg, PRN Pain Score 4-6, Start date: 06/20/14 8:59:00, Duration: 30 day, Stop date: 07/20/14 8 :58:00 Notes: (Same as:MORPhine Sulfate) Start Date: 06/20/14 Stop Date: 06/21/14 Status: Discontinuedmorphine Sulfate 4 mg, 2 mL, Route: IVP, Drug form: INJ, ONCE, Dosing Weight 51.818, kg, Priority : STAT, Start date: 06/20/14 8:27:00, Stop date: 06/20/14 8:27:00 Notes: (Same as:MORPhine Sulfate) Start Date: 06/20/14 Stop Date: 06/20/14 Status: Completedmorphine Sulfate 2 mg, 1 mL, Route: IVP, Drug form: INJ, Q3H, Dosing Weight 51.818, kg, PRN Pain Score 4-6, Start date: 06/20/14 10:23:00, Duration: 30 day, Stop date: 07/20/14 10:22:00 Notes: (Same as:MORPhine Sulfate) Start Date: 06/20/14 Stop Date: 06/21/14 Status: Discontinuedondansetron 4 mg, 2 mL, Route: IVP, Drug form: INJ, Q8H, Dosing Weight 51.818, kg, PRN Nausea & Vomiting, Start date: 06/20/14 10:23:00, Duration: 30 day, Stop date: 07/20/14 10:22:00 Notes: (Same as: Zofran) Start Date: 06/20/14 Stop Date: 06/21/14 Status: Discontinuedorphenadrine 60 mg, 2 mL, Route: IVP, Drug form: INJ, ONCE, Dosing Weight 51.818, kg, Priority: STAT, Start date:06/20/14 6:40:00, Stop date: 06/20/14 6:40:00 Start Date: 06/20/14 Stop Date: 06/20/14 Status: Completedpotassium chloride 40 mEq, 2 tab, Route: PO, Drug form: ERTAB, ONCE, Dosing Weight 51.818, kg, Priority: STAT, Start date: 06/20/14 7:46:00, Stop date: 06/20/14 7:46:00 Notes: (Same as: K-Dur 20)"Do Not Crush" With food and full glass of water Start Date: 06/20/14 Stop Date: 06/20/14 Status: Completedpotassium chloride 40 mEq, 2 tab, Route: PO, Drug form: ERTAB, PRN, Dosing Weight 51.818, kg, PRN Other -See Comment, Electrolyte replacement, Start date: 06/20/14 17:21:00, Duration: 30 day, Stop date: 07/20/14 17:20:00, none Notes: (Same as: K-Dur 20)"Do Not Crush" With food and full glass of water Start Date: 06/20/14 Stop Date: 06/21/14 Status: Discontinuedpotassium chloride 20 mEq, 100 mL, Route: IVPB, Drug form: INJ, Q2H, Dosing Weight 51.818, kg, Total dose=60 mEq, Startdate: 06/20/14 18:00:00, Duration: 3 doses or times, Stop date: 06/20/14 22:00:00 Notes: (Same as: KCL) Infuse no faster than 10 mEq/hr if given peripherally. Start Date: 06/20/14 Stop Date: 06/20/14 Status: Completedpotassium chloride 40 mEq, 30 mL, Route: PO, Drug form: LIQ, ONCE, Dosing Weight 51.818, kg, Priority: STAT, Start date: 06/20/14 17:39:00, Stop date: 06/20/14 17:39:00 Notes: (Same as: Potassium Chloride) Start Date: 06/20/14 Stop Date: 06/20/14 Status: Completedpotassium chloride 20 mEq oral tablet, extended release 20 mEq=1 tab, PO, BID, # 4 tab, 0 Refill(s) Start Date: 06/21/14 Stop Date: 06/21/14 Status: Discontinuedpotassium chloride 20 mEq/15 mL oral liquid 20 mEq=15 mL, PO, BID, # 65 mL, 0 Refill(s) Start Date: 06/21/14 Status: Orderedtemazepam 15 mg, 1 cap, Route: PO, Drug form: CAP, Bedtime, Dosing Weight 51.818, kg, PRN Insomnia, Start date: 06/20/14 8:59:00, Duration: 30 day, Stop date: 07/20/14 8: 58:00 Notes: (Same As: Restoril) Start Date: 06/20/14 Stop Date: 06/21/14 Status: DiscontinuedZofran 4 mg, 2 mL, Route: IVP, Drug form: INJ, ONCE, Dosing Weight 51.818, kg, Priority : STAT, Start date: 06/20/14 8:27:00, Stop date: 06/20/14 8:27:00 Notes: (Same as: Zofran) Start Date: 06/20/14 Stop Date: 06/20/14 Status: Completed Results ELECTROLYTES Most recent to oldest 1 2 3 [Reference Range]: Sodium Lvl [135-145 mEq/L] 144 mEq/L 142 mEq/L 144 mEq/L (06/21/14 6:41 AM) (06/20/14 3:03 PM) (06/20/14 7:06 AM) Potassium Lvl [3.5-5.1 3.6 mEq/L 2.6 mEq/L 1 2.7 mEq/L 2 mEq/L] (06/21/14 6:41 AM) *CRIT* *CRIT* (06/20/14 3:03 PM) (06/20/14 7:06 AM) Chloride Lvl [95-109 mEq/L] 107 mEq/L 102 mEq/L 101 mEq/L (06/21/14 6:41 AM) (06/20/14 3:03 PM) (06/20/14 7:06 AM) CO2 [24-32 mEq/L] 30 mEq/L 35 mEq/L 31 mEq/L (06/21/14 6:41 AM) *HI* (06/20/14 7:06 AM) (06/20/14 3:03 PM) AGAP [10.0-20.0 mEq/L] 10.6 mEq/L 7.6 mEq/L 14.7 mEq/L (06/21/14 6:41 AM) *LOW* (06/20/14 7:06 AM) (06/20/14 3:03 PM) 1Result Comment: Critical Result(s) called to Olive Guerrero RN at 2013 15:36 byssj. Read back OK.2Result Comment: Critical Result(s) called to Garland ALANIZ R.N. at 06/20/2014 07:35 by COMMUNICATIONS CLERK. Read back OK.CHEM PANEL Most recent to oldest 1 2 3 [Reference Range]: Creatinine Lvl [0.5-1.4 0.6 mg/dL 0.6 mg/dL 0.7 mg/dL mg/dL] (06/21/14 6:41 AM) (06/20/14 3:03 PM) (06/20/14 7:06 AM) eGFR 106 mL/min/1.73m2 3 106 mL/min/1.73m2 4 101 mL/min/1.73m2 5 *NA* *NA* *NA* (06/21/14 6:41 AM) (06/20/14 3:03 PM) (06/20/14 7:06 AM) BUN [7-22 mg/dL] 12 mg/dL 17 mg/dL 16 mg/dL (06/21/14 6:41 AM) (06/20/14 3:03 PM) (06/20/14 7:06 AM) Glucose Lvl [70-99 mg/dL] 91 mg/dL 6 96 mg/dL 7 92 mg/dL 8 (06/21/14 6:41 AM) (06/20/14 3:03 PM) (06/20/14 7:06 AM) Calcium Lvl [8.5-10.5 7.3 mg/dL 7.0 mg/dL 9 7.3 mg/dL mg/dL] *LOW* *CRIT* *LOW* (06/21/14 6:41 AM) (06/20/14 3:03 PM) (06/20/14 7:06 AM) Phosphorus [2.5-4.5 mg/dL] 2.9 mg/dL (06/20/14 7:06 AM) Magnesium Lvl [1.8-2.4 1.9 mg/dL 2.2 mg/dL 0.7 mg/dL mg/dL] (06/21/14 6:41 AM) (06/20/14 3:03 PM) *CRIT* (06/20/14 7:06 AM) 3Result Comment: The eGFR is calculated using the CKD-EPI formula. In most young , healthy individualsthe eGFR will be >90 mL/min/1.73m2. The eGFR declines with age. An eGFR of 60-89 may be normal in some populations, particularly the elderly, for whom [...] eGFR should be multiplied by the estimated BMI.4Result Comment: The eGFR is calculated using the CKD-EPI formula. In most young, healthy individualsthe eGFR will be >90 mL/ min/1.73m2. The eGFR declines with age. An eGFR of 60-89 may be normal in some populations, particularly the elderly, for whom [...] eGFR should be multiplied by the estimated BMI.5Result Comment: The eGFR is calculated using the CKD-EPI formula. In most young, healthy individualsthe eGFR will be >90 mL/ min/1.73m2. The eGFR declines with age. An eGFR of 60-89 may be normal in some populations, particularly the elderly, for whom [...] eGFR should be multiplied by the estimated BMI.6Interpretive Data: Adult reference range values reflect the clinical guidelines of the [place] [employer].7Interpretive Data: Adult reference range values reflect the clinical guidelines of the [place] [employer].8Interpretive Data: Adult reference range values reflect the clinical guidelines of the [place] [employer].9Result Comment: Critical Result(s) called to Olive Mohan RN at 06/20/2014 15:36 by devang. Read back OK.PARATHYROID PROFILE Most recent to oldest [Reference Range]: 1 2 3 Ca Ion WB [1.05-1.25 mMol/L] 0.91 mMol/L *LOW* (06/20/14 4:07 PM) Ca Norm WB [1.05-1.25 mMol/L] 0.94 mMol/L *LOW* (06/20/14 4:07 PM) HEMATOLOGY Most recent to oldest [Reference Range]: 1 2 3 WBC [3.7-10.4 K/CMM] 5.0 K/CMM (06/21/14 6:41 AM) RBC [4.20-5.40 M/CMM] 3.40 M/CMM *LOW* (06/21/14 6:41 AM) Hgb [12.0-16.0 g/dL] 10.6 g/dL *LOW* (06/21/14 6:41 AM) Hct [36.0-48.0 %] 31.5 % *LOW* (06/21/14 6:41 AM) MCV [80.0-98.0 fL] 92.8 fL (06/21/14 6:41 AM) MCH [27.0-31.0 pg] 31.0 pg (06/21/14 6:41 AM) MCHC [32.0-36.0 g/dL] 33.4 g/dL (06/21/14 6:41 AM) RDW [11.5-14.5 %] 14.2 % (06/21/14 6:41 AM) Platelet [133-450 K/CMM] 307 K/CMM (06/21/14 6:41 AM) MPV [7.4-10.4 fL] 7.6 fL (06/21/14 6:41 AM) Segs [45.0-75.0 %] 67.6 % (06/21/14 6:41 AM) Lymphocytes [20.0-40.0 %] 24.1 % (06/21/14 6:41 AM) Monocytes [2.0-12.0 %] 6.2 % (06/21/14 6:41 AM) Eosinophils [0.0-4.0 %] 1.7 % (06/21/14 6:41 AM) Basophils [0.0-1.0 %] 0.4 % (06/21/14 6:41 AM) Segs-Bands # [1.5-8.1 K/CMM] 3.4 K/CMM (06/21/14 6:41 AM) Lymphocytes # [1.0-5.5 K/CMM] 1.2 K/CMM (06/21/14 6:41 AM) Monocytes # [0.0-0.8 K/CMM] 0.3 K/CMM (06/21/14 6:41 AM) Eosinophils # [0.0-0.5 K/CMM] 0.1 K/CMM (06/21/14 6:41 AM) Basophils # [0.0-0.2 K/CMM] 0.0 K/CMM (06/21/14 6:41 AM) Medications Administered During Your Visit No data available for this section Immunizations No data available for this section Procedures Procedure Type Body Site Date of Procedure Related Diagnosis Colostomy Social History Social History Type Response Alcohol Use: Never Smoking Status Current every day smoker, Exposure to Tobacco Smoke None, Cigarette Smoking Last 365 Days Yes, Reg Smoking Cessation Counseling No
--- NOTE | 2018-01-10 14:04 | RAD REPORT ---
EXAM DESCRIPTION: Melecio Single View01/10/2018 1:45 pm CLINICAL HISTORY: Chest pain COMPARISON: October 2017 FINDINGS: The lungs appear clear of acute infiltrate. The heart is normal size IMPRESSION: No acute abnormalities displayed
--- NOTE | 2018-01-10 14:29 | ER ---
Nurse's Notes [facility] Name: Lyric Barnard Age: 57 yrs Sex: Female : 1960 Arrival Date: 01/10/2018 Time: 12:18 Bed 18 Private MD: Diagnosis: Encounter for PICC line removal Presentation: 01/10 12:30 Presenting complaint: Patient states: "I want my picc line removed. I don't want to be aj on TPN any more. My doctor is on maternity leave and doctor she referred me to had a long wait so I left. I don't want this thing in my body anymore." No redness or inflammation noted. PICC managed by home health. Transition of care: patient was not received from another setting of care. Onset of symptoms was January 10, 2018. Risk Assessment: Do you want to hurt yourself or someone else? Patient reports no desire to harm self or others. Initial Sepsis Screen: Does the patient meet any 2 criteria? No. Patient's initial sepsis screen is negative. Does the patient have a suspected source of infection? No. Patient's initial sepsis screen is negative. Care prior to arrival: None. 12:30 Method Of Arrival: Ambulatory 12:30 Acuity: LATIA 5 aj Triage Assessment: 12:33 General: Appears in no apparent distress. comfortable, Behavior is agitated. Pain: aj Denies pain. Neuro: Level of Consciousness is awake, alert, obeys commands, Oriented to person, place, time, situation, Appropriate for age. Respiratory: Airway is patent Respiratory effort is even, unlabored, Respiratory pattern is regular, symmetrical. Derm: Skin is intact, is healthy with good turgor, Skin is pink, warm \\T\\ dry. normal. 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 - Social history:: Smoking status: Patient uses tobacco products, smokes one pack cigarettes per day. - Ebola Screening: : Patient negative for fever greater than or equal to 101.5 degrees Fahrenheit, and additional compatible Ebola Virus Disease symptoms Patient denies exposure to infectious person Patient denies travel to an Ebola-affected area in the 21 days before illness onset No symptoms or risks identified at this time. - Family history:: not pertinent. - Hospitalizations: : No recent hospitalization is reported. Screenin:01 Abuse screen: Denies threats or abuse. Denies injuries from another. Nutritional ph screening: No deficits noted. Tuberculosis screening: No symptoms or risk factors identified. Fall Risk None identified. Assessment: 12:54 General: Appears in no apparent distress. comfortable, slender, well groomed, Behavior ph is calm, cooperative, appropriate for age, Reports Pt states, " I've looked all over in [place], [place], [place], and other places and I can't find a Dr to manage my TPN, I am eating now and I plan on supplementing w/ Boost shakes when I get the PICC out. It's already been in for 2 months and if I can't find anyone to manage it my insurance will stop covering the TPN next month. I just want it out of my body!!" Pt reports weight gain of 10 lbs since PICC line was placed in October. ERP at bedside to speak w/ pt and informed her of the risks of having PICC removed. Pt understands risks involved in the procedure and agrees to sign consent form, (see paper chart) Denies fever, feeling ill. Pain: Denies pain. Neuro: Level of Consciousness is awake, alert, obeys commands, Oriented to person, place, time, situation. Cardiovascular: Capillary refill < 3 seconds Patient's skin is warm and dry. Cardiovascular: PICC line noted to R upper arm, site appears healthy w/ no redness, swelling, or drainage noted, dressing dry and in place.. Respiratory: Airway is patent Respiratory effort is even, unlabored, Respiratory pattern is regular, symmetrical. GI: Reports tolerance of fluids, tolerance of food, Patient currently denies abdominal pain, diarrhea, nausea, vomiting. Derm: Skin is healthy with good turgor, Skin is pink, warm \\T\\ dry. Derm: Musculoskeletal: Circulation, motion, and sensation intact. Range of motion: intact in all extremities. 13:30 Reassessment: Patient appears in no apparent distress at this time. Patient is alert, ph oriented x 3, equal unlabored respirations, skin warm/dry/pink. PICC line removed using sterile technique, (see procedure note), pt tolerated well, awaiting CXR. 14:25 Reassessment: Patient appears in no apparent distress at this time. Patient and/or ph family updated on plan of care and expected duration. Pain level reassessed. Patient is alert, oriented x 3, equal unlabored respirations, skin warm/dry/pink. ERP at bedside to speak with pt, awaiting d/c. 14:40 Reassessment: Room found to be empty when attempting to d/c pt, pt not located in restroom or lobby, pt left before receiving/signing d/c papers. Vital Signs: 12:33 BP 136 / 99; Pulse 100; Resp 19; Temp 99.4; Pulse Ox 98% on R/A; Weight 48.08 kg; aj Height 5 ft. 5 in. (165.10 cm); 13:30 BP 127 / 86; Pulse 91; Resp 18; Pulse Ox 99% on R/A; ph 12:33 Body Mass Index 17.64 (48.08 kg, 165.10 cm) aj ED Course: 12:18 Patient arrived in ED. sb2 12:29 Liban Barrera MD is Attending Physician. rn 12:32 Triage completed. aj 12:33 Arm band placed on left wrist. Patient placed in an exam room. aj 12:50 Consent signed for R PICC line removal, informed of procedure and risks involved by Dr kamryn Barrera. 12:54 Myrtle Ramos, RN is Primary Nurse. ph 13:02 Patient has correct armband on for positive identification. Placed in gown. Bed in low ph position. Call light in reach. Side rails up X 1. 13:21 No provider procedures requiring assistance completed. IV discontinued, PICC line to R ph upper arm d/c using sterile technique, measured 29 cm, verified w/ Elsa ELLIOTT in ICU that original measurement was 29 cm when line was inserted there in October. Pt tolerated procedure well w/ minimal bleeding noted, pressure applied for 2 min and site dressed w/ gauze and tegaderm, pt instructed to leave dressing in place for 24 hours. 13:40 X-ray completed. Portable x-ray completed in exam room. jr1 13:43 XRAY Chest (1 view) In Process Unspecified. EDMS Administered Medications: No medications were administered Outcome: 14:29 Discharge ordered by . rn 14:45 Discharged to home ambulatory. ph 14:45 Condition: good 14:45 Discharge instructions given to Pt left before receiving d/c instructions 14:48 Patient left the ED. ph Signatures: Dispatcher [employer] EDKierra Campuzano, Edwige Woodard RN [email or web address] Liban Barrera MD MD rn Hall, Patricia, RN RN ph Billeau, Sheri sb2
--- NOTE | 2018-01-10 14:30 | EDPHYS ---
Physician Documentation [facility] Name: Lyric Barnard Age: 57 yrs Sex: Female : 1960 Arrival Date: 01/10/2018 Time: 12:18 Bed 18 Private MD: ED Physician Liban Barrera HPI: 01/10 12:43 This 57 yrs old Female presents to ER via Ambulatory with complaints of needs rn PICC line pulled. 12:43 REports PICC line in for 2 months now, bowel obstruction resolved, is eating, has rn called numerous doctors and no one wants to remove or manage it, no complications, wants it removed, has had them before and removed before, is getting TPN through it but doesn't want it anymore, plans to supplement with ensure, placed at this hospital but other providers not willing to do as she wants. . Onset: The symptoms/episode began/occurred at an unknown time. The patient has not experienced similar symptoms in the past. The patient has been recently seen by a physician:. 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 - Social history:: Smoking status: Patient uses tobacco products, smokes one pack cigarettes per day. - Ebola Screening: : Patient negative for fever greater than or equal to 101.5 degrees Fahrenheit, and additional compatible Ebola Virus Disease symptoms Patient denies exposure to infectious person Patient denies travel to an Ebola-affected area in the 21 days before illness onset No symptoms or risks identified at this time. - Family history:: not pertinent. - Hospitalizations: : No recent hospitalization is reported. ROS: 12:43 Constitutional: Negative for fever, chills, and weight loss, Eyes: Negative for injury, rn pain, redness, and discharge, Neck: Negative for injury, pain, and swelling, Cardiovascular: Negative for chest pain, palpitations, and edema, Respiratory: Negative for shortness of breath, cough, wheezing, and pleuritic chest pain, Abdomen/GI: Negative for abdominal pain, nausea, vomiting, diarrhea, and constipation, MS/Extremity: Negative for injury and deformity, Skin: Negative for injury, rash, and discoloration, Neuro: Negative for headache, weakness, numbness, tingling, and seizure. Exam: 12:43 Constitutional: This is a well developed, well nourished patient who is awake, alert, rn and in no acute distress. Neck: Trachea midline, no thyromegaly or masses palpated, and no cervical lymphadenopathy. Supple, full range of motion without nuchal rigidity, or vertebral point tenderness. No Meningismus. Cardiovascular: Regular rate and rhythm with a normal S1 and S2. No gallops, murmurs, or rubs. Normal PMI, no JVD. No pulse deficits. Respiratory: Lungs have equal breath sounds bilaterally, clear to auscultation and percussion. No rales, rhonchi or wheezes noted. No increased work of breathing, no retractions or nasal flaring. Skin: Warm, dry with normal turgor. Normal color with no rashes, no lesions, and no evidence of cellulitis. MS/ Extremity: Pulses equal, no cyanosis. Neurovascular intact. Full, normal range of motion. Equal circumference. Right PICC line in place RUE, dressing intact, no sign of infection. Vital Signs: 12:33 BP 136 / 99; Pulse 100; Resp 19; Temp 99.4; Pulse Ox 98% on R/A; Weight 48.08 kg; aj Height 5 ft. 5 in. (165.10 cm); 13:30 BP 127 / 86; Pulse 91; Resp 18; Pulse Ox 99% on R/A; ph 12:33 Body Mass Index 17.64 (48.08 kg, 165.10 cm) aj MDM: 12:29 Patient medically screened. rn 13:07 Differential Diagnosis PICC line removal. Data reviewed: vital signs, nurses notes. rn Counseling: I had a detailed discussion with the patient and/or guardian regarding: the historical points, exam findings, and any diagnostic results supporting the discharge/admit diagnosis, the need for outpatient follow up, to return to the emergency department if symptoms worsen or persist or if there are any questions or concerns that arise at home. 14:28 ED course: CXR clear after removal, sitting up reading, asymptomatic, thankful for rn removal of PICC line.. 01/10 13:17 Order name: XRAY Chest (1 view); Complete Time: 14:28 rn Administered Medications: No medications were administered Disposition: 01/10/18 14:29 Discharged to Home. Impression: Encounter for PICC line removal. - Condition is Stable. - Discharge Instructions: PICC Removal, Care After. - Medication Reconciliation Form, Thank You Letter, Antibiotic Education, Prescription Opioid Use form. - Follow up: Private Physician; When: As needed; Reason: Recheck today's complaints, Re-evaluation by your physician. - Problem is new. - Symptoms have improved. Signatures: Dispatcher [employer] EDMS Kierra Tarango RN RN aj Nieto, Roman, MD MD rn Hall, Patricia, RN RN ph Corrections: (The following items were deleted from the chart) 12:46 12:43 Constitutional: This is a well developed, well nourished patient who is awake, rn alert, and in no acute distress. Neck: Trachea midline, no thyromegaly or masses palpated, and no cervical lymphadenopathy. Supple, full range of motion without nuchal rigidity, or vertebral point tenderness. No Meningismus. Cardiovascular: Regular rate and rhythm with a normal S1 and S2. No gallops, murmurs, or rubs. Normal PMI, no JVD. No pulse deficits. Respiratory: Lungs have equal breath sounds bilaterally, clear to auscultation and percussion. No rales, rhonchi or wheezes noted. No increased work of breathing, no retractions or nasal flaring. Skin: Warm, dry with normal turgor. Normal color with no rashes, no lesions, and no evidence of cellulitis. MS/ Extremity: Pulses equal, no cyanosis. Neurovascular intact. Full, normal range of motion. Equal circumference. rn 14:48 14:29 01/10/2018 14:29 Discharged to Home. Impression: Encounter for PICC line removal. ph Condition is Stable. Forms are Medication Reconciliation Form, Thank You Letter, Antibiotic Education, Prescription Opioid Use. Follow up: Private Physician; When: As needed; Reason: Recheck today's complaints, Re-evaluation by your physician. Problem is new. Symptoms have improved. rn
== END 2018-01-10 14:48 | disposition home or self-care (01) ==
LOC: ER 12:16
DX: Z45.2 Encounter for adjustment and management of vascular access device (principal); F17.210 Nicotine dependence, cigarettes, uncomplicated; Z85.41 Personal history of malignant neoplasm of cervix uteri; Z79.02 Long term (current) use of antithrombotics/antiplatelets; Z88.6 Allergy status to analgesic agent
CPT/HCPCS: 71045; 99283